=== PATIENT | female | born 1950 | race American Indian/Alaskan Native ===

== ENCOUNTER 2017-09-26 11:48 | Inpatient (IN) | payer MEDICARE ==
[2017-09-26] MEDS ORDERED: NACL 0.9% 500 ML 500 ML IV ONE (12:33)
--- NOTE | 2017-09-26 13:05 | XRay Report ---
AP CHEST: HISTORY: Sepsis No comparison. The left costophrenic angle is obscured suggesting a small left pleural effusion. Otherwise, the lungs are clear. No dense consolidation or pneumothorax. Mild cardiomegaly is suspected. IMPRESSION: Mild cardiomegaly. Small left pleural effusion.
[2017-09-26 13:36] LABS: Basophils % (Auto) 0.4 % (0.0-1.8); Hematocrit 33.5 % (30.3-42.9); Hemoglobin 10.3 gm/dl (10.1-14.3); Mean Corpuscular HGB Conc 31 % (30-34); Mean Corpuscular Volume 83 fl (79-97); Platelet Count 318 K/mm3 (140-440); Red Blood Count 4.06 M/mm3 (3.65-5.03); Red Cell Distribution Width 19.7 % (13.2-15.2); White Blood Count 13.6 K/mm3 (4.5-11.0)
[2017-09-26 13:45] LABS: INR 1.08 (0.87-1.13)
[2017-09-26 13:50] LABS: Albumin 3.5 g/dL (3.9-5); Albumin/Globulin Ratio 0.8 %; Bilirubin,Total 0.3 mg/dL (0.1-1.2); Calcium 9.5 mg/dL (8.4-10.2); Chloride 121.6 mmol/L (98-107); Potassium 4.2 mmol/L (3.6-5.0)
[2017-09-26] MEDS ORDERED: NACL 0.9% 1000 ML IV ONE (13:53)
[2017-09-26] MEDS ORDERED: TYLENOL FEEDTUBE ONE (13:53)
[2017-09-26] MEDS ORDERED: MAXIPIME/NS 2 GM/100 ML 2 GM/100 ML BAG IV ONE (13:53)
[2017-09-26] MEDS ORDERED: VANCOMYCIN VIAL IV ONE ×2 (13:56→14:38)
[2017-09-26 13:58] LABS: Mean Corpuscular Hemoglobin 26 pg (28-32)
--- NOTE | 2017-09-26 13:59 | Emergency Department Report ---
ED General Adult HPI - General Chief complaint: Dyspnea/Respdistress Stated complaint: RANDOLPH Time Seen by Provider: 09/26/17 13:42 Source: EMS (ems notes not available at time of chart dictation), RN notes reviewed Mode of arrival: Stretcher Limitations: Other (patient demented and nonverbal) - History of Present Illness Initial comments: This is a 67-year-old female who is previously known to this provider, patient is brought to the ER by local EMS for generalized weakness. Past medical history includes hypertension, high cholesterol, diabetes, stroke, dysphagia, anxiety, glaucoma. Her primary care doctor is Dr. Ruel Dillard. The ER, patient is found to be febrile and tachycardic. He shouldn't is unable to describe exacerbating or relieving factors. Patient groans in response to painful stimuli. Found to be dehydrated, febrile, hypernatremic, with pleural effusion. Patient will be admitted to the hospital for sepsis, she will be treated empirically with vancomycin and cefepime, IV fluids ordered, urinalysis pending, noncontrast CT scan of the abdomen and pelvis is pending, case was presented to the Hospital physician, Dr. Palma, who accepted the patient to the medical service for aforementioned findings. -: unknown Radiation: other (per hpi) Quality: other (per hpi) Consistency: other (per hpi) Improves with: other (per hpi) Worsens with: other (per hpi) Associated Symptoms: confusion, fever/chills, loss of appetite, malaise, shortness of breath, weakness - Related Data Allergies Allergy/AdvReac Type Severity Reaction Status Date / Time codeine Allergy Unknown Verified 09/26/17 12:32 ED Review of Systems ROS: Stated complaint: RANDOLPH Other details as noted in HPI Comment: Unobtainable due to pts medical conditions ED Past Medical Hx - Past Medical History Previous Medical History?: Yes Hx CVA: Yes Hx Diabetes: Yes Additional medical history: MDD, AFib, Glaucoma, legal blindness, PVD, Anxiety, Feed tube - Surgical History Additional Surgical History: Feed tube - Social History Smoking Status: Unknown if ever smoked Substance Use Type: None ED Physical Exam - General Limitations: Other (patient demented, poor historian, may have a component of delirium) General appearance: alert, in no apparent distress - Head Head exam: Present: atraumatic, normocephalic - Eye Eye exam: Present: normal appearance - ENT ENT exam: Present: mucous membranes dry - Neck Neck exam: Present: normal inspection, full ROM - Respiratory Respiratory exam: Present: respiratory distress, rhonchi - Cardiovascular Cardiovascular Exam: Present: normal rhythm, tachycardia, normal heart sounds. Absent: systolic murmur, diastolic murmur, rubs, gallop - GI/Abdominal GI/Abdominal exam: Present: soft, normal bowel sounds, other (feeding tube is noted in the left lower quadrant, no redness, pus or streaking). Absent: distended, tenderness, guarding, rebound, rigid, pulsatile mass - Rectal Rectal exam: Absent: normal inspection (there is a well-healing 2 cm sacral wound, with a central tunnel. No obvious redness, pus or streaking) - Extremities Exam Extremities exam: Present: other (patient has contracted bilateral lower extremities. On the lateral aspect of the left lower extremity, there is a pressure wound, 3 cm wide by 8 cm long. Has some bloody discharge but good granulation tissue, there is also surrounding necrotic black tissue. 2+ pulses noted in the bilateral upper and lower extremities.). Absent: normal inspection - Back Exam Back exam: Present: normal inspection. Absent: tenderness, CVA tenderness (R), paraspinal tenderness, vertebral tenderness - Neurological Exam Neurological exam: Present: altered, other (patient groans in response to painful stimuli) - Psychiatric Psychiatric exam: Present: other (patient groans in response to painful stimuli) - Skin Skin exam: Present: warm. Absent: intact ED Course Vital Signs 09/26/17 12:21 Temperature 101.3 F H Pulse Rate 100 H Respiratory 24 Rate Blood Pressure 105/52 O2 Sat by Pulse 96 Oximetry - Reevaluation(s) Reevaluation #1: 09/26/17 14:28 Hypernatremia is appreciated, this is most likely secondary to dehydration. Reevaluation #2: 09/26/17 15:[address] scan of the abdomen and pelvis is negative. Urinalysis is pending. Of note, [facility] indicate gram-negative rods growing in culture from patient's urinalysis. ED Medical Decision Making - Lab Data Result diagrams: 09/26/17 13:04 09/26/17 13:04 Vital Signs 09/26/17 12:21 Temperature 101.3 F H Pulse Rate 100 H Respiratory 24 Rate Blood Pressure 105/52 O2 Sat by Pulse 96 Oximetry Lab Results 09/26/17 09/26/17 09/26/17 Range/Units 13:04 13:04 13:04 WBC 13.6 H (4.5-11.0) K/mm3 RBC 4.06 (3.65-5.03) M/mm3 Hgb 10.3 (10.1-14.3) gm/dl Hct 33.5 (30.3-42.9) % MCV 83 (79-97) fl MCH 26 L (28-32) pg MCHC 31 (30-34) % RDW 19.7 H (13.2-15.2) % Plt Count 318 (140-440) K/mm3 Lymph % (Auto) 21.9 (13.4-35.0) % [place] % (Auto) 4.5 (0.0-7.3) % Eos % (Auto) 2.0 (0.0-4.3) % Baso % (Auto) 0.4 (0.0-1.8) % Lymph # 3.0 (1.2-5.4) K/mm3 [place] # 0.6 (0.0-0.8) K/mm3 Eos # 0.3 (0.0-0.4) K/mm3 Baso # 0.1 (0.0-0.1) K/mm3 Seg Neutrophils % 71.2 H (40.0-70.0) % Seg Neutrophils # 9.7 H (1.8-7.7) K/mm3 PT 14.6 (12.2-14.9) Sec. INR 1.08 (0.87-1.13) VBG pH (7.320-7.420) Sodium 163 H* (137-145) mmol/L Potassium 4.2 (3.6-5.0) mmol/L Chloride 121.6 H (98-107) mmol/L Carbon Dioxide 24 (22-30) mmol/L Anion Gap 22 mmol/L BUN 53 H (7-17) mg/dL Creatinine 1.5 H (0.7-1.2) mg/dL Estimated GFR 42 ml/min BUN/Creatinine Ratio 35 % Glucose 279 H (65-100) mg/dL Lactic Acid (0.7-2.0) mmol/L Calcium 9.5 (8.4-10.2) mg/dL Total Bilirubin 0.30 (0.1-1.2) mg/dL AST 14 (5-40) units/L ALT 22 (7-56) units/L Alkaline Phosphatase 96 (35-129) units/L Total Protein 8.0 (6.3-8.2) g/dL Albumin 3.5 L (3.9-5) g/dL Albumin/Globulin Ratio 0.8 % 09/26/17 09/26/17 Range/Units 13:04 13:04 WBC (4.5-11.0) K/mm3 RBC (3.65-5.03) M/mm3 Hgb (10.1-14.3) gm/dl Hct (30.3-42.9) % MCV (79-97) fl MCH (28-32) pg MCHC (30-34) % RDW (13.2-15.2) % Plt Count (140-440) K/mm3 Lymph % (Auto) (13.4-35.0) % [place] % (Auto) (0.0-7.3) % Eos % (Auto) (0.0-4.3) % Baso % (Auto) (0.0-1.8) % Lymph # (1.2-5.4) K/mm3 [place] # (0.0-0.8) K/mm3 Eos # (0.0-0.4) K/mm3 Baso # (0.0-0.1) K/mm3 Seg Neutrophils % (40.0-70.0) % Seg Neutrophils # (1.8-7.7) K/mm3 PT (12.2-14.9) Sec. INR (0.87-1.13) VBG pH 7.426 H (7.320-7.420) Sodium (137-145) mmol/L Potassium (3.6-5.0) mmol/L Chloride (98-107) mmol/L Carbon Dioxide (22-30) mmol/L Anion Gap mmol/L BUN (7-17) mg/dL Creatinine (0.7-1.2) mg/dL Estimated GFR ml/min BUN/Creatinine Ratio % Glucose (65-100) mg/dL Lactic Acid 2.20 H* (0.7-2.0) mmol/L Calcium (8.4-10.2) mg/dL Total Bilirubin (0.1-1.2) mg/dL AST (5-40) units/L ALT (7-56) units/L Alkaline Phosphatase (35-129) units/L Total Protein (6.3-8.2) g/dL Albumin (3.9-5) g/dL Albumin/Globulin Ratio % - EKG Data -: EKG Interpreted by Me - EKG Data 09/26/17 14:26 Sinus tachycardia, 107 bpm, left axis deviation, low voltage, poor R progression , borderline high left ventricular voltage, abnormal EKG, not morphologically consistent with ST elevation myocardial infarction - Radiology Data Radiology results: pending, report reviewed, image reviewed interpreted by me: X-ray of the chest suggest pleural effusion, however no acute disease otherwise noted. CT scan of the abdomen and pelvis: Critical care attestation.: If time is entered above; I have spent that time in minutes in the direct care of this critically ill patient, excluding procedure time. ED Disposition Clinical Impression: Sepsis, Renal insufficiency, Hypernatremia Disposition: OP ADMIT IP TO THIS HOSP Is pt being admited?: Yes Condition: Fair Referrals: PRIMARY CARE, [Primary Care Provider] - 3-5 Days
[2017-09-26] MEDS ORDERED: VANCOMYCIN PHARMACY TO DOSE IV SCH (14:00)
[2017-09-26] MEDS ORDERED: ceFAZolin 2 GM in NACL 0.9% 20 ML IV SCH (14:30)
[2017-09-26] MEDS ORDERED: ZOFRAN IV PRN (14:38)
[2017-09-26] MEDS ORDERED: DULCOLAX PR PRN (14:38)
[2017-09-26] MEDS ORDERED: TYLENOL PO PRN (14:38)
[2017-09-26] MEDS ORDERED: MILK OF MAGNESIA PO PRN (14:38)
[2017-09-26] MEDS ORDERED: PROVENTIL IH PRN (14:38)
--- NOTE | 2017-09-26 14:38 | History and Physical Report ---
History of Present Illness Date of admission: She is getting weak History of present illness: 67 YO Female Penitentiary Resident at [facility] with HTN, DM, CVA complicated by Dysphagia, Anxiety, A Fib, Legal Blindness, contracture, Glaucoma , HLD presents to ED for evaluation. Pt is lethargic, and nonverbal and unable to provide history. History taken from EMS, and ED staff. As per EMS, Pt was reported to have experienced progressive weakness and worsening confusion over the past week, EMS notified, and upon arrival patient was found to be lethargic , but able to protect her airway. Pt transported to [facility] for evaluation. Pt seen and evaluated in ED and found to have evidence of fever, and sepsis. Pt initiated on sepsis protocol. No reports to fever, chills, CP, Palpitations, NVD ,Trauma, Falls, BRBPR, Skin Rash, productive cough, sore throat, or recent ill contacts. Past History Past Medical History: atrial fib, diabetes, stroke Past Surgical History: No surgical history, Other (reviewed) Social history: single. denies: smoking, alcohol abuse, prescription drug abuse , IV drug use Family history: no significant family history (reviewed) Medications and Allergies Allergies Allergy/AdvReac Type Severity Reaction Status Date / Time codeine Allergy Unknown Verified 09/26/17 12:32 Home Medications Medication Instructions Recorded Confirmed Last Taken Type Acetaminophen [Tylenol Extra 500 mg PO BID 09/26/17 09/26/17 Unknown History Strength] Amlodipine Besylate [Norvasc] 10 mg PO DAILY 09/26/17 09/26/17 Unknown History Ascorbic Acid [Vitamin C] 250 mg PO BID 09/26/17 09/26/17 Unknown History Aspirin [Aspirin TAB] 325 mg PO QDAY 09/26/17 09/26/17 Unknown History Brimonidine Tartrate [Alphagan P] 5 ml OP BID 09/26/17 09/26/17 Unknown History Ferrous Sulfate [Iron] 325 mg PO DAILY 09/26/17 09/26/17 Unknown History HYDROcodone/APAP 5-325 [[place] 1 each PO Q12H PRN 09/26/17 09/26/17 Unknown History 5/325] Insulin Lispro [Humalog 100 0 units SQ AC 09/26/17 09/26/17 Unknown History UNITS/ML Kwikpen] Metformin HCl [Glucophage] 500 mg PO DAILY 09/26/17 09/26/17 Unknown History Multivitamin Tab W-MINERAL 1 each PO QD 09/26/17 09/26/17 Unknown History [Multiple Vitamin/Mineral (Theragran M)] [place]-3 Fatty Acids/Fish Oil [Fish 1 each PO TID 09/26/17 09/26/17 Unknown History Oil 1,000 mg Softgel] Simvastatin [Zocor TAB] 60 mg PO QHS 09/26/17 09/26/17 Unknown History cloNIDine [Catapres] 0.1 mg PO BID 09/26/17 09/26/17 Unknown History Active Meds: Active Medications Vancomycin HCl 2,000 mg/ (Sodium Chloride) 520 mls @ 250 mls/hr IV ONCE.ED ONE Stop: 09/26/17 17:04 Cefepime HCl 2 gm/ Sodium (Chloride) 20 mls @ 20 mls/10 min IV ONCE.ED ONE Stop: 09/26/17 15:09 Vancomycin HCl (Vancomycin Pharmacy To Dose) 1 each IV PKCONSULT FABIOLA PRN Reason: Protocol Review of Systems ROS unobtainable: due to mental status Exam - Constitutional Vitals: Temp Pulse Resp BP Pulse Ox 101.3 F H 100 H 24 105/52 96 09/26/17 12:21 09/26/17 12:21 09/26/17 12:21 09/26/17 12:21 09/26/17 12:21 General appearance: Present: mild distress, disheveled - EENT Eyes: Present: PERRL ENT: hearing intact, clear oral mucosa - Respiratory Respiratory: bilateral: diminished - Cardiovascular Heart Sounds: Present: S1 & S2. Absent: rub, click - Extremities Extremities: pulses symmetrical, No edema Peripheral Pulses: within normal limits - Abdominal General gastrointestinal: Present: soft, non-distended Female genitourinary: Present: normal - Integumentary Integumentary: Present: clear, dry, clammy, decreased turgor - Musculoskeletal Musculoskeletal: generalized weakness - Psychiatric Psychiatric: no intact judgment & insight, no memory intact - Neurologic Neurologic: no gait normal Results - Labs CBC & Chem 7: 09/26/17 13:04 09/26/17 13:04 Labs: Abnormal lab results 09/26/17 09/26/17 09/26/17 Range/Units 13:04 13:04 13:04 WBC 13.6 H (4.5-11.0) K/mm3 MCH 26 L (28-32) pg RDW 19.7 H (13.2-15.2) % Seg Neutrophils % 71.2 H (40.0-70.0) % Seg Neutrophils # 9.7 H (1.8-7.7) K/mm3 VBG pH (7.320-7.420) Sodium 163 H* (137-145) mmol/L Chloride 121.6 H (98-107) mmol/L BUN 53 H (7-17) mg/dL Creatinine 1.5 H (0.7-1.2) mg/dL Glucose 279 H (65-100) mg/dL Lactic Acid 2.20 H* (0.7-2.0) mmol/L Albumin 3.5 L (3.9-5) g/dL 09/26/17 Range/Units 13:04 WBC (4.5-11.0) K/mm3 MCH (28-32) pg RDW (13.2-15.2) % Seg Neutrophils % (40.0-70.0) % Seg Neutrophils # (1.8-7.7) K/mm3 VBG pH 7.426 H (7.320-7.420) Sodium (137-145) mmol/L Chloride (98-107) mmol/L BUN (7-17) mg/dL Creatinine (0.7-1.2) mg/dL Glucose (65-100) mg/dL Lactic Acid (0.7-2.0) mmol/L Albumin (3.9-5) g/dL Assessment and Plan - Patient Problems (1) Sepsis Current Visit: Yes Status: Acute Qualifiers: Sepsis type: sepsis due to unspecified organism Qualified Code(s): A41.9 - Sepsis, unspecified organism Plan to address problem: IV abx, IVF, supportive care, monitor uop q shift, serial lactic acid, blood cultures, urinalysis, (2) Volume depletion Current Visit: Yes Status: Acute Plan to address problem: IVF resuscitation therapy, monitor uop q shift, (3) ARF (acute renal failure) Current Visit: Yes Status: Acute Plan to address problem: IVF replacement, urine electrolytes, monitor serum creatnine, and in no improvement, will consider renal ultrasound. (4) Lactic acidosis Current Visit: Yes Status: Acute Plan to address problem: Treat sepsis, IVF, replacement, (5) Sacral decubitus ulcer Current Visit: Yes Status: Acute Plan to address problem: Present on admission, wound care (6) Diabetes Current Visit: Yes Status: Acute Plan to address problem: ADA diet, insulin, accu check (7) DVT prophylaxis Current Visit: Yes Status: Acute
[2017-09-26] MEDS ORDERED: MAXIPIME 2 GM in NACL 0.9% 20 ML IV ONE (15:00)
[2017-09-26] MEDS ORDERED: VANCOMYCIN 2,000 MG in NACL 0.9% 500 ML 500 ML IV ONE (15:00)
--- NOTE | 2017-09-26 15:16 | Cat Scan Report ---
CT ABDOMEN PELVIS WITHOUT CONTRAST: HISTORY: Fever, sepsis. COMPARISON: none. TECHNIQUE: Helical CT in 1.25mm intervals without IV contrast. Sagittal and coronal reconstructions. FINDINGS: Lung bases: Unremarkable. Minor atelectatic changes at the right lung base are noted. Liver: normal. Biliary system: normal. Pancreas: normal. Spleen: Normal. Kidneys/ureters/bladder: normal. Adrenal glands: normal. Aorta: Moderate diffuse calcifications but no aneurysm. Intestines: normal. Appendix: normal. Pelvic viscera: normal. Musculoskeletal: normal. IMPRESSION: No acute process is identified in the abdomen or pelvis.
[2017-09-26 15:37] LABS: Bacteria,Urine 1+ /HPF (Negative); Bilirubin,Urine NEG (Negative); Blood,Urine NEG (Negative); Ketones,Urine NEG (Negative); Leukocyte Esterase,Urine NEG (Negative); Nitrite,Urine NEG (Negative); Urobilinogen,Urine < 2.0 mg/dL (<2.0)
[2017-09-26] MEDS: ZOSYN/NS 4.5GM/100ML 4.5 GM/100 ML VIAL IV SCH ×2 (18:15→22:53)
[2017-09-27] MEDS: ZOSYN/NS 4.5GM/100ML 4.5 GM/100 ML VIAL IV SCH ×3 (06:58→23:48)
[2017-09-27] MEDS ORDERED: NARCAN 0.4 MG/1 ML IV ONE (09:43)
--- NOTE | 2017-09-27 10:07 | Progress Note ---
Assessment and Plan Assessment and plan: Patient is a 67 YO Female Half-Way Resident at [facility] with HTN, DM, CVA complicated by Dysphagia, Anxiety, A Fib, Legal Blindness, contracture, Glaucoma, HLD, ODALIS, presents to ED for evaluation with fever and generalized weakness and progressive confusion. Patient at baseline is non verbal non verbal but normally awake and alert [place] reports that she has progressively gotten weak and minimally responsive. Severe Hypernatremia * Start Free water, check serial sodium level, Nephrology consult Sepsis- POA, fever, leukocytosis, tachycardia elevated lactic acid, no identifiable source of infection. possible mild aspiration pneumonitis, Pleural effusion, possible infected pressure ulcer * Cont, Vanc, change cefepime to zosyn for broader coverage. CT abdomen unremarkable. Acute Metabolic Encephalopathy * Worse than baseline per facility. Will speak further with sister * This morning patient was lethargic non responsive- had received, xanax and tramadol per nursing at 6am. now responding to noxious stimuli. * Avoid all sedating medications Pressure ulcer, sacral right hip. * wound care consult Dehydration/Volume depletion * Continue D5w at 100cc/hr Acute Kidney Injury likely secondary to vasomotor nephropathy * nephrology consult Diabete Miletus * start on Sliding scale coverage untill feeding is established And adjust as need Severe contracture * Passive PT/OT ODALIS * CPAP qhs CVA * Prior episodes now complete immobility Complete Immobility due to frailty * Fall precautions. HTN * Continue current treatment. Hold antihypertensives including CLONIDINE Atrial fibrillation * Controlled Legally Blind. * Fall precautions * Assist. dvt/gi PROPHY No family present and no contact information. call placed to [place] to obtain The high probability of a clinically significant, sudden or life threatening deterioration of the [NEUROLOGY, RENAL, ENDOCRINE] system(s) required my full and direct attention, intervention and personal management. The aggregate critical care time was [35] minutes. This time is in addition to time spent performing reported procedures but includes the following: [X] Data Review and interpretation [X] Patient assessment and monitoring of vital signs [X] Documentation [X] Medication orders and management History Interval history: Patient seen and examined this morning prior to examination nursing called a code neck due to altered sensorium patient had received Xanax with tramadol and became less responsive. She is now responded to noxious stimuli ABG did not reveal any evidence of CO2 necrosis patient at baseline is nonverbal. Hospitalist Physical - Physical exam Narrative exam: VITAL SIGNS: Reviewed. GENERAL: The patient is chronically ill appearing with contractures lower extremity. Possible noxious stimuli. Vital signs as documented. HEAD: No signs of head trauma. EYES: Pupils are equal. Extraocular movements unable to examine, patient is legally blind and with acute encephalopathy this morning EARS: Hearing grossly intact. MOUTH: Oropharynx is normal. NECK: No adenopathy, no JVD. CHEST: Chest with diminished breath sounds bilaterally. No wheezes, rales, or rhonchi. CPAP this morning CARDIAC: Regular rate and rhythm. S1 and S2, without murmurs, gallops, or rubs. VASCULAR: No Edema. Peripheral pulses normal and equal in all extremities. ABDOMEN: Soft, without detectable tenderness. No sign of distention. No rebound or guarding, and no masses palpated. Bowel Sounds normal. MUSCULOSKELETAL: Good range of motion of all major joints. Extremities without clubbing, cyanosis or edema. NEUROLOGIC EXAM: Lethargic but arousable with noxious stimuli. Unable to perform full neurological exam. Nonverbal PSYCHIATRIC: Mood normal. SKIN: Pressure ulcer unstageable at this time awaiting reevaluation - Constitutional Vitals: Temp Pulse Resp BP Pulse Ox 98.9 F 79 22 122/72 100 09/27/17 08:09 09/27/17 08:09 09/27/17 08:09 09/27/17 08:09 09/27/17 08:09 General appearance: Present: disheveled Results - Labs CBC & Chem 7: 09/27/17 10:28 09/27/17 10:28 Labs: Laboratory Last Values WBC 13.6 K/mm3 (4.5-11.0) H 09/26/17 13:04 RBC 4.06 M/mm3 (3.65-5.03) 09/26/17 13:04 Hgb 10.3 gm/dl (10.1-14.3) 09/26/17 13:04 Hct 33.5 % (30.3-42.9) 09/26/17 13:04 MCV 83 fl (79-97) 09/26/17 13:04 MCH 26 pg (28-32) L 09/26/17 13:04 MCHC 31 % (30-34) 09/26/17 13:04 RDW 19.7 % (13.2-15.2) H 09/26/17 13:04 Plt Count 318 K/mm3 (140-440) 09/26/17 13:04 Lymph % (Auto) 21.9 % (13.4-35.0) 09/26/17 13:04 [place] % (Auto) 4.5 % (0.0-7.3) 09/26/17 13:04 Eos % (Auto) 2.0 % (0.0-4.3) 09/26/17 13:04 Baso % (Auto) 0.4 % (0.0-1.8) 09/26/17 13:04 Lymph # 3.0 K/mm3 (1.2-5.4) 09/26/17 13:04 [place] # 0.6 K/mm3 (0.0-0.8) 09/26/17 13:04 Eos # 0.3 K/mm3 (0.0-0.4) 09/26/17 13:04 Baso # 0.1 K/mm3 (0.0-0.1) 09/26/17 13:04 Seg Neutrophils % 71.2 % (40.0-70.0) H 09/26/17 13:04 Seg Neutrophils # 9.7 K/mm3 (1.8-7.7) H 09/26/17 13:04 PT 14.6 Sec. (12.2-14.9) 09/26/17 13:04 INR 1.08 (0.87-1.13) 09/26/17 13:04 VBG pH 7.426 (7.320-7.420) H 09/26/17 13:04 Sodium 163 mmol/L (137-145) H* 09/26/17 13:04 Potassium 4.2 mmol/L (3.6-5.0) 09/26/17 13:04 Chloride 121.6 mmol/L (98-107) H 09/26/17 13:04 Carbon Dioxide 24 mmol/L (22-30) 09/26/17 13:04 Anion Gap 22 mmol/L 09/26/17 13:04 BUN 53 mg/dL (7-17) H 09/26/17 13:04 Creatinine 1.5 mg/dL (0.7-1.2) H 09/26/17 13:04 Estimated GFR 42 ml/min 09/26/17 13:04 BUN/Creatinine Ratio 35 % 09/26/17 13:04 Glucose 279 mg/dL (65-100) H 09/26/17 13:04 POC Glucose 262 (70-105) H 09/26/17 23:09 Lactic Acid 2.50 mmol/L (0.7-2.0) H* 09/26/17 22:54 Calcium 9.5 mg/dL (8.4-10.2) 09/26/17 13:04 Total Bilirubin 0.30 mg/dL (0.1-1.2) 09/26/17 13:04 AST 14 units/L (5-40) 09/26/17 13:04 ALT 22 units/L (7-56) 09/26/17 13:04 Alkaline Phosphatase 96 units/L (35-129) 09/26/17 13:04 Total Creatine Kinase 133 units/L (30-135) 09/26/17 14:08 Total Protein 8.0 g/dL (6.3-8.2) 09/26/17 13:04 Albumin 3.5 g/dL (3.9-5) L 09/26/17 13:04 Albumin/Globulin Ratio 0.8 % 09/26/17 13:04 Urine Color Yellow (Yellow) 09/26/17 12:40 Urine Turbidity Clear (Clear) 09/26/17 12:40 Urine pH 5.0 (5.0-7.0) 09/26/17 12:40 Ur Specific [place] 1.021 (1.003-1.030) 09/26/17 12:40 Urine Protein 100 mg/dl mg/dL (Negative) 09/26/17 12:40 Urine Glucose (UA) 50 mg/dL (Negative) 09/26/17 12:40 Urine Ketones Neg mg/dL (Negative) 09/26/17 12:40 Urine Blood Neg (Negative) 09/26/17 12:40 Urine Nitrite Neg (Negative) 09/26/17 12:40 Urine Bilirubin Neg (Negative) 09/26/17 12:40 Urine Urobilinogen < 2.0 mg/dL (<2.0) 09/26/17 12:40 Ur Leukocyte Esterase Neg (Negative) 09/26/17 12:40 Urine WBC (Auto) 5.0 /HPF (0.0-6.0) 09/26/17 12:40 Urine RBC (Auto) 2.0 /HPF (0.0-6.0) 09/26/17 12:40 U Epithel Cells (Auto) < 1.0 /HPF (0-13.0) 09/26/17 12:40 Urine Bacteria (Auto) 1+ /HPF (Negative) 09/26/17 12:40 - Imaging and Cardiology CT scan - abdomen: image reviewed CT Scan - head: pending
[2017-09-27] MEDS ORDERED: SIMPLE SYRUP FEEDTUBE PRN ×2 (10:53)
[2017-09-27] MEDS ORDERED: SODIUM BICARBONATE FEEDTUBE PRN (10:53)
[2017-09-27] MEDS ORDERED: PANCREAZE DR 10,500 UNIT FEEDTUBE PRN (10:53)
[2017-09-27 10:55] LABS: Hematocrit 29.6 % (30.3-42.9); Hemoglobin 9.3 gm/dl (10.1-14.3); Mean Corpuscular HGB Conc 32 % (30-34); Mean Corpuscular Hemoglobin 26 pg (28-32); Mean Corpuscular Volume 84 fl (79-97); Platelet Count 267 K/mm3 (140-440); Red Blood Count 3.55 M/mm3 (3.65-5.03); Red Cell Distribution Width 19.7 % (13.2-15.2); White Blood Count 12.1 K/mm3 (4.5-11.0)
[2017-09-27 10:56] LABS: Calcium 8.9 mg/dL (8.4-10.2); Chloride 127.3 mmol/L (98-107); Potassium 3.5 mmol/L (3.6-5.0)
[2017-09-27] MEDS ORDERED: D5W 1,000 ML IV SCH ×2 (11:00→15:00)
--- NOTE | 2017-09-27 12:05 | Cat Scan Report ---
CT HEAD WITHOUT CONTRAST INDICATION: Altered mental status. COMPARISON: None similar. FINDINGS: Noncontrast head CT demonstrates normal sulci and age-appropriate, mildly enlarged ventricles with mild ex-vacuo dilatation of the right frontal horn with few ganglionic lacunar infarcts as measuring approximately 8 mm on the right, axial image 34, series 2. Moderate periventricular and white matter hypodense small vessel ischemic disease also noted. Though difficult to accurately detect in this setting, no definite acute infarct, hemorrhage, mass effect or midline shift. No abnormal extra axial fluid collections. Normal posterior fossa with preserved basilar cisterns. Approximately 3 mm right paramidline pontine lacunar infarct anteriorly, axial image 19. A 4 mm right inferior cerebellar lacunar infarct also seen on axial image 12. Preserved basilar cisterns. Left eye postsurgical changes. Bilateral cataract surgery. Asymmetric abnormal density in the right eye globe posteriorly/along the retina as on axial image 18, series 2. Small bilateral maxillary sinus mucus retention cysts. Clear remainder imaged paranasal sinuses and mastoid air cells. Left external auditory canal debris may be directly visualized. Atherosclerotic ICA and vertebral artery calcifications. Left vertebral artery dominant. Hyperostosis frontalis interna. Few missing teeth and mandibular radiopaque dental filling incidentally noted. CONCLUSION: No acute intracranial CT abnormality with age-appropriate atrophy, extensive microvascular changes, lacunar infarcts and abnormal right eye globe CT appearance, amongst others, as detailed above. Please correlate. Thank you for the opportunity to participate in this patient's care.
[2017-09-27] MEDS: NOVOLOG SUB-Q SCH ×2 (12:47→17:29)
[2017-09-27] MEDS ORDERED: D5/0.45NS 1,000 ML IV SCH (13:00)
--- NOTE | 2017-09-27 13:12 | Consultation ---
History of Present Illness - Reason for Consult Consult date: 09/27/17 hypernatremia - History of Present Illness Ms Andre is a 67 y/o lady with a PMH of DM, HTN, CVA, Afib, HLD, legal blindness who has been admitted to the [facility] with AMS. Pt was found to be septic and started on IVFs and Abx. Pt per history form the chart has been getting progressively weak with confusion over the past weak. Per the chart there has been no reported fever, chills, N/V, diarrhea, cough, sore throat. Pt was found to have ARF along with hypernatremia on labs. ROS: Unable to obtain due to pt lethargy Past History Past Medical History: atrial fib, diabetes, stroke Past Surgical History: No surgical history, Other (reviewed) Social history: single. denies: smoking, alcohol abuse, prescription drug abuse , IV drug use Family history: no significant family history (reviewed) Medications and Allergies Allergies Allergy/AdvReac Type Severity Reaction Status Date / Time codeine Allergy Unknown Verified 09/26/17 12:32 Home Medications Medication Instructions Recorded Confirmed Last Taken Type Acetaminophen [Tylenol Extra 500 mg PO BID 09/26/17 09/26/17 Unknown History Strength] Amlodipine Besylate [Norvasc] 10 mg PO DAILY 09/26/17 09/26/17 Unknown History Ascorbic Acid [Vitamin C] 250 mg PO BID 09/26/17 09/26/17 Unknown History Aspirin [Aspirin TAB] 325 mg PO QDAY 09/26/17 09/26/17 Unknown History Brimonidine Tartrate [Alphagan P] 5 ml OP BID 09/26/17 09/26/17 Unknown History Ferrous Sulfate [Iron] 325 mg PO DAILY 09/26/17 09/26/17 Unknown History HYDROcodone/APAP 5-325 [[place] 1 each PO Q12H PRN 09/26/17 09/26/17 Unknown History 5/325] Insulin Lispro [Humalog 100 0 units SQ AC 09/26/17 09/26/17 Unknown History UNITS/ML Kwikpen] Metformin HCl [Glucophage] 500 mg PO DAILY 09/26/17 09/26/17 Unknown History Multivitamin Tab W-MINERAL 1 each PO QD 09/26/17 09/26/17 Unknown History [Multiple Vitamin/Mineral (Theragran M)] [place]-3 Fatty Acids/Fish Oil [Fish 1 each PO TID 09/26/17 09/26/17 Unknown History Oil 1,000 mg Softgel] Simvastatin [Zocor TAB] 60 mg PO QHS 09/26/17 09/26/17 Unknown History cloNIDine [Catapres] 0.1 mg PO BID 09/26/17 09/26/17 Unknown History Active Meds: Active Medications Acetaminophen (Tylenol) 650 mg PO Q4H PRN PRN Reason: Pain MILD(1-3)/Fever >100.5/CARRILLO Acetaminophen (Tylenol) 500 mg PO BID FABIOLA Albuterol (Proventil) 2.5 mg IH Q4HRT PRN PRN Reason: Shortness Of Breath Lipase/Protease/Amylase (Pancreaze Dr 10,500 Unit) 1 each FEEDTUBE PRN PRN PRN Reason: For Clogged Feeding Tube Ascorbic Acid (Vitamin C) 250 mg PO BID FABIOLA Aspirin (Aspirin) 325 mg PO QDAY FABIOLA Bisacodyl (Dulcolax) 10 mg VT QDAY PRN PRN Reason: Constipation unrelieved by MOM Brimonidine Tartrate (Alphagan P 0.15%) 1 drops OU BID FABIOLA Piperacillin Sod/Tazobactam Sod (Zosyn/Ns 4.5gm/100ml) 4.5 gm in 100 mls @ 200 mls/hr IV Q8HR FABIOLA PRN Reason: Protocol Last Admin: 09/27/17 06:58 Dose: 200 mls/hr Vancomycin HCl 1,500 mg/ (Sodium Chloride) 515 mls @ 333.333 mls/hr IV Q24H FABIOLA Dextrose (D5w) 1,000 mls @ 100 mls/hr IV DIRECT FABIOLA Dextrose/Sodium Chloride (D5/0.45ns) 1,000 mls @ 100 mls/hr IV DIRECT FABIOLA Insulin Aspart (Novolog) 0 units SUB-Q ACHS FABIOLA PRN Reason: Protocol Magnesium Hydroxide (Milk Of Magnesia) 30 ml PO Q4H PRN PRN Reason: Constipation Ondansetron HCl (Zofran) 4 mg IV Q8H PRN PRN Reason: N/V unrelieved by Reglan Simple Syrup (Simple Syrup) 15 ml FEEDTUBE PRN PRN PRN Reason: Hypoglycemia Simple Syrup (Simple Syrup) 30 ml FEEDTUBE PRN PRN PRN Reason: Hypoglycemia Sodium Bicarbonate (Sodium Bicarbonate) 325 mg FEEDTUBE PRN PRN PRN Reason: For Clogged Feeding Tube Vancomycin HCl (Vancomycin Pharmacy To Dose) 1 each IV PKCONSULT FABIOLA PRN Reason: Protocol Exam - Vital Signs Vital signs: Vital Signs Pulse Ox 94 09/26/17 12:15 - Physical Exam Narrative exam: GE: Lethargic HEENT: Normocephalic Neck: No JVD CVS: RRR Chest: Coarse BS BL Abd: Soft/BS+ Ext: No cce Neuro: Lethargic Results - Lab Results 09/27/17 10:28 09/27/17 10:28 Most recent lab results Calcium 8.9 mg/dL (8.4-10.2) 09/27/17 10:28 Assessment and Plan Acute Kidney injury likely pre renal: -No BL Cr available, came in with Cr of 1.5. Now 1.4 -Continue IVFs. Will hydrate with D5W at 100 mls/hr given hypernatremia -CXR somewhat congested so keep close eye on volume status, check TTE -Renally dose all meds, avoid nephrotoxic meds -Check Urine Studies. CT abdomen mentions kidneys as normal. Hypernatremia, hypertonic: -Unknown if acute or chronic so will check BMP q6H and target drop in Na 8-10 meq/24 hours to prevent cerebral edema -Started D5W at 100 mls/hr -Check BMP q6H -Monitor closely Sepsis due to unknown cause: -On empiric ABx -Cultures ordered -Per primary Metabolic acidosis due to lactic acidosis: -Improved now, monitor, could be due to Sepsis Essential Hypertension: -BP meds on hold for now due to risk of hypotension with Sepsis Diabetes mellitus type 2 on insulin: -On ISS -Per primary Hyperlipidemia, chronic: -Can continue statin Anemia, normocytic: -Transfuse PRN per primary With this note, I want to thank Dr Stephens for allowing me to participate in the care of Ms Andre, i will continue to follow her closely with you. Thank you for the consult. Erik Ceja MD Nephrology, Hypertension, Dialysis, Transplantation Phone no: [phone]
[2017-09-27 13:38] LABS: Basophils % (Manual) 0 % (0.0-1.8); Blastocytes % (Manual) 0 %; Diff Status Complete; RBC Morphology Normal
--- NOTE | 2017-09-27 15:44 | XRay Report ---
PORTABLE CHEST INDICATION: Volume status. COMPARISON: Yesterday. FINDINGS: Portable, frontal chest radiograph, 12:18 PM, 09/27/2017 demonstrates stable cardiomediastinal silhouette. Approximately 7 mm subtle nodular density may project over the right fifth rib posterolaterally and possibly a granuloma, amongst others. Otherwise unremarkable lungs. Slightly elevated right hemidiaphragm. Aortic atherosclerotic calcifications. EKG leads. Intact bones. CONCLUSION: Vague right mid lung nodule, as described. Please correlate clinically, with more remote chest imaging if available, or further with chest CT, as appropriate. Thank you for the opportunity to participate in this patient's care.
[2017-09-27 16:42] LABS: Calcium 8.6 mg/dL (8.4-10.2); Chloride 124.7 mmol/L (98-107); Potassium 3.5 mmol/L (3.6-5.0)
[2017-09-27] MEDS: VANCOMYCIN 1,500 MG in NACL 0.9% 500 ML 500 ML IV SCH (17:30)
[2017-09-27 21:50] LABS: Calcium 8.8 mg/dL (8.4-10.2); Chloride 121.8 mmol/L (98-107); Potassium 3.3 mmol/L (3.6-5.0)
[2017-09-27] MEDS: TYLENOL PO SCH (22:49)
[2017-09-27] MEDS: VITAMIN C PO SCH (22:50)
[2017-09-27] MEDS: ALPHAGAN P 0.15% OU SCH (23:48)
[2017-09-28] MEDS: NOVOLOG SUB-Q SCH ×5 (00:12→22:54)
[2017-09-28 05:43] LABS: Hematocrit 30.3 % (30.3-42.9); Hemoglobin 9.4 gm/dl (10.1-14.3); Mean Corpuscular HGB Conc 31 % (30-34); Mean Corpuscular Volume 83 fl (79-97); Platelet Count 265 K/mm3 (140-440); Red Blood Count 3.63 M/mm3 (3.65-5.03); Red Cell Distribution Width 18.9 % (13.2-15.2); White Blood Count 9.7 K/mm3 (4.5-11.0)
[2017-09-28] MEDS: ZOSYN/NS 4.5GM/100ML 4.5 GM/100 ML VIAL IV SCH ×3 (05:50→22:51)
[2017-09-28 06:00] LABS: Mean Corpuscular Hemoglobin 26 pg (28-32); Potassium 3.4 mmol/L (3.6-5.0)
[2017-09-28] MEDS: VITAMIN C PO SCH ×2 (09:50→22:51)
[2017-09-28] MEDS: ALPHAGAN P 0.15% OU SCH ×2 (09:50→22:51)
[2017-09-28] MEDS: ASPIRIN PO SCH (09:50)
--- NOTE | 2017-09-28 09:51 | Progress Note ---
Assessment and Plan Assessment and plan: Patient is a 67 YO Female Residential Resident at [facility] with HTN, DM, CVA complicated by Dysphagia, Anxiety, A Fib, Legal Blindness, contracture, Glaucoma, HLD, ODALIS, presents to ED for evaluation with fever and generalized weakness and progressive confusion. Patient at baseline is non verbal non verbal but normally awake and alert [place] reports that she has progressively gotten weak and minimally responsive. Severe Hypernatremia * Improving, now 157 continue Free water, check serial sodium level, Nephrology input noted. Sepsis- POA, fever, leukocytosis, tachycardia elevated lactic acid, no identifiable source of infection. possible mild aspiration pneumonitis, Pleural effusion, possible infected pressure ulcer * Cont, Vanc, change cefepime to zosyn for broader coverage. CT abdomen unremarkable. * Discontinue abx in 24 hours or switch to PO if no further fever. Acute Metabolic Encephalopathy * Appears to be improving with intermittent waxing and wanning. * This morning patient was lethargic non responsive- had received, xanax and tramadol per nursing at 6am. now responding to noxious stimuli. * Avoid all sedating medications Pressure ulcer, sacral right hip. * wound care consult Dehydration/Volume depletion * Continue D5w at 100cc/hr Acute Kidney Injury likely secondary to vasomotor nephropathy * nephrology consult noted. Resolving. Diabete [place] * Start home dose meds, since tube feeds resumed continue Sliding scale coverage Severe contracture * Passive PT/OT ODALIS * CPAP qhs CVA * Prior episodes now complete immobility Complete Immobility due to frailty * Fall precautions. HTN * Continue current treatment. Hold antihypertensives including CLONIDINE Hypokalemia * Replace Atrial fibrillation * Controlled Legally Blind. * Fall precautions * Assist. dvt/gi PROPHY No family present and no contact information. call placed to [place] to obtain History Interval history: Patient seen and examined this morning in no acute distress clinically at baseline according to family toe was here yesterday. Still nonverbal but opens eyes to verbal stimulus at this time. Hospitalist Physical - Physical exam Narrative exam: VITAL SIGNS: Reviewed. GENERAL: The patient is chronically ill appearing with contractors lower extremity. Possible noxious stimuli. Vital signs as documented. HEAD: No signs of head trauma. EYES: Pupils are equal. Extraocular movements unable to examine, patient is legally blind and with acute encephalopathy this morning EARS: Hearing grossly intact. MOUTH: Oropharynx is normal. NECK: No adenopathy, no JVD. CHEST: Chest with diminished breath sounds bilaterally. No wheezes, rales, or rhonchi. CPAP this morning CARDIAC: Regular rate and rhythm. S1 and S2, without murmurs, gallops, or rubs. VASCULAR: No Edema. Peripheral pulses normal and equal in all extremities. ABDOMEN: Soft, without detectable tenderness. No sign of distention. No rebound or guarding, and no masses palpated. Bowel Sounds normal. MUSCULOSKELETAL: Good range of motion of all major joints. Extremities without clubbing, cyanosis or edema. NEUROLOGIC EXAM: Awake to verbal stimuli but nonverbal. Unable to perform full neurological exam. Nonverbal PSYCHIATRIC: Mood normal. SKIN: Pressure ulcer unstageable at this time awaiting reevaluation - Constitutional Vitals: Temp Pulse Resp BP Pulse Ox 97.7 F 78 20 118/75 100 09/28/17 08:04 09/28/17 08:04 09/28/17 08:04 09/28/17 08:04 09/28/17 09:03 General appearance: Present: disheveled Results - Labs CBC & Chem 7: 09/28/17 05:19 09/28/17 10:47 Labs: Laboratory Last Values WBC 9.7 K/mm3 (4.5-11.0) 09/28/17 05:19 RBC 3.63 M/mm3 (3.65-5.03) L 09/28/17 05:19 Hgb 9.4 gm/dl (10.1-14.3) L 09/28/17 05:19 Hct 30.3 % (30.3-42.9) 09/28/17 05:19 MCV 83 fl (79-97) 09/28/17 05:19 MCH 26 pg (28-32) L 09/28/17 05:19 MCHC 31 % (30-34) 09/28/17 05:19 RDW 18.9 % (13.2-15.2) H 09/28/17 05:19 Plt Count 265 K/mm3 (140-440) 09/28/17 05:19 Lymph % (Auto) 21.9 % (13.4-35.0) 09/26/17 13:04 Mower % (Auto) 4.5 % (0.0-7.3) 09/26/17 13:04 Eos % (Auto) 2.0 % (0.0-4.3) 09/26/17 13:04 Baso % (Auto) 0.4 % (0.0-1.8) 09/26/17 13:04 Lymph # 3.0 K/mm3 (1.2-5.4) 09/26/17 13:04 Mower # 0.6 K/mm3 (0.0-0.8) 09/26/17 13:04 Eos # 0.3 K/mm3 (0.0-0.4) 09/26/17 13:04 Baso # 0.1 K/mm3 (0.0-0.1) 09/26/17 13:04 Add Manual Diff Complete 09/27/17 10:28 Total Counted 100 09/27/17 10:28 Seg Neutrophils % 71.2 % (40.0-70.0) H 09/26/17 13:04 Seg Neuts % (Manual) 73.0 % (40.0-70.0) H 09/27/17 10:28 Band Neutrophils % 5.0 % 09/27/17 10:28 Lymphocytes % (Manual) 16.0 % (13.4-35.0) 09/27/17 10:28 Reactive Lymphs % (Man) 0 % 09/27/17 10:28 Monocytes % (Manual) 5.0 % (0.0-7.3) 09/27/17 10:28 Eosinophils % (Manual) 1.0 % (0.0-4.3) 09/27/17 10:28 Basophils % (Manual) 0 % (0.0-1.8) 09/27/17 10:28 Metamyelocytes % 0 % 09/27/17 10:28 Myelocytes % 0 % 09/27/17 10:28 Promyelocytes % 0 % 09/27/17 10:28 Blast Cells % 0 % 09/27/17 10:28 Nucleated RBC % Not Reportable 09/27/17 10:28 Seg Neutrophils # 9.7 K/mm3 (1.8-7.7) H 09/26/17 13:04 Seg Neutrophils # Man 8.8 K/mm3 (1.8-7.7) H 09/27/17 10:28 Band Neutrophils # 0.6 K/mm3 09/27/17 10:28 Lymphocytes # (Manual) 1.9 K/mm3 (1.2-5.4) 09/27/17 10:28 Abs React Lymphs (Man) 0.0 K/mm3 09/27/17 10:28 Monocytes # (Manual) 0.6 K/mm3 (0.0-0.8) 09/27/17 10:28 Eosinophils # (Manual) 0.1 K/mm3 (0.0-0.4) 09/27/17 10:28 Basophils # (Manual) 0.0 K/mm3 (0.0-0.1) 09/27/17 10:28 Metamyelocytes # 0.0 K/mm3 09/27/17 10:28 Myelocytes # 0.0 K/mm3 09/27/17 10:28 Promyelocytes # 0.0 K/mm3 09/27/17 10:28 Blast Cells # 0.0 K/mm3 09/27/17 10:28 WBC Morphology Not Reportable 09/27/17 10:28 Hypersegmented Neuts Not Reportable 09/27/17 10:28 Hyposegmented Neuts Not Reportable 09/27/17 10:28 Hypogranular Neuts Not Reportable 09/27/17 10:28 Smudge Cells Not Reportable 09/27/17 10:28 Toxic Granulation Not Reportable 09/27/17 10:28 Toxic Vacuolation Not Reportable 09/27/17 10:28 Dohle Bodies Not Reportable 09/27/17 10:28 Pelger-Huet Anomaly Not Reportable 09/27/17 10:28 Stephany Rods Not Reportable 09/27/17 10:28 Platelet Estimate Not Reportable 09/27/17 10:28 Clumped Platelets Not Reportable 09/27/17 10:28 Plt Clumps, EDTA Not Reportable 09/27/17 10:28 Large Platelets Not Reportable 09/27/17 10:28 Giant Platelets Not Reportable 09/27/17 10:28 Platelet Satelliting Not Reportable 09/27/17 10:28 Plt Morphology Comment Not Reportable 09/27/17 10:28 RBC Morphology Normal 09/27/17 10:28 Dimorphic RBCs Not Reportable 09/27/17 10:28 Polychromasia Not Reportable 09/27/17 10:28 Hypochromasia Not Reportable 09/27/17 10:28 Poikilocytosis Not Reportable 09/27/17 10:28 Anisocytosis Not Reportable 09/27/17 10:28 Microcytosis Not Reportable 09/27/17 10:28 Macrocytosis Not Reportable 09/27/17 10:28 Spherocytes Not Reportable 09/27/17 10:28 Pappenheimer Bodies Not Reportable 09/27/17 10:28 Sickle Cells Not Reportable 09/27/17 10:28 Target Cells Not Reportable 09/27/17 10:28 Tear Drop Cells Not Reportable 09/27/17 10:28 Ovalocytes Not Reportable 09/27/17 10:28 Helmet Cells Not Reportable 09/27/17 10:28 [place] Bodies Not Reportable 09/27/17 10:28 [place] Rings Not Reportable 09/27/17 10:28 [place] Cells Not Reportable 09/27/17 10:28 Bite Cells Not Reportable 09/27/17 10:28 Crenated Cell Not Reportable 09/27/17 10:28 Elliptocytes Not Reportable 09/27/17 10:28 Acanthocytes (Spur) Not Reportable 09/27/17 10:28 Rouleaux Not Reportable 09/27/17 10:28 Hemoglobin C Crystals Not Reportable 09/27/17 10:28 Schistocytes Not Reportable 09/27/17 10:28 Malaria parasites Not Reportable 09/27/17 10:28 [place] Bodies Not Reportable 09/27/17 10:28 Hem Pathologist Commnt No 09/27/17 10:28 PT 14.6 Sec. (12.2-14.9) 09/26/17 13:04 INR 1.08 (0.87-1.13) 09/26/17 13:04 VBG pH 7.426 (7.320-7.420) H 09/26/17 13:04 Sodium 160 mmol/L (137-145) H 09/28/17 05:19 Potassium 3.4 mmol/L (3.6-5.0) L 09/28/17 05:19 Chloride 123.0 mmol/L (98-107) H 09/28/17 05:19 Carbon Dioxide 23 mmol/L (22-30) 09/28/17 05:19 Anion Gap 17 mmol/L 09/28/17 05:19 BUN 33 mg/dL (7-17) H 09/28/17 05:19 Creatinine 1.2 mg/dL (0.7-1.2) 09/28/17 05:19 Estimated GFR 54 ml/min 09/28/17 05:19 BUN/Creatinine Ratio 28 % 09/28/17 05:19 Glucose 148 mg/dL (65-100) H 09/28/17 05:19 POC Glucose 181 (70-105) H 09/28/17 08:10 Lactic Acid 0.90 mmol/L (0.7-2.0) 09/28/17 05:19 Calcium 9.0 mg/dL (8.4-10.2) 09/28/17 05:19 Total Bilirubin 0.30 mg/dL (0.1-1.2) 09/26/17 13:04 AST 14 units/L (5-40) 09/26/17 13:04 ALT 22 units/L (7-56) 09/26/17 13:04 Alkaline Phosphatase 96 units/L (35-129) 09/26/17 13:04 Total Creatine Kinase 133 units/L (30-135) 09/26/17 14:08 NT-Pro-B Natriuret Pep 137.9 pg/mL (0-900) 09/27/17 10:28 Total Protein 8.0 g/dL (6.3-8.2) 09/26/17 13:04 Albumin 3.5 g/dL (3.9-5) L 09/26/17 13:04 Albumin/Globulin Ratio 0.8 % 09/26/17 13:04 Urine Color Yellow (Yellow) 09/26/17 12:40 Urine Turbidity Clear (Clear) 09/26/17 12:40 Urine pH 5.0 (5.0-7.0) 09/26/17 12:40 Ur Specific [place] 1.021 (1.003-1.030) 09/26/17 12:40 Urine Protein 100 mg/dl mg/dL (Negative) 09/26/17 12:40 Urine Glucose (UA) 50 mg/dL (Negative) 09/26/17 12:40 Urine Ketones Neg mg/dL (Negative) 09/26/17 12:40 Urine Blood Neg (Negative) 09/26/17 12:40 Urine Nitrite Neg (Negative) 09/26/17 12:40 Urine Bilirubin Neg (Negative) 09/26/17 12:40 Urine Urobilinogen < 2.0 mg/dL (<2.0) 09/26/17 12:40 Ur Leukocyte Esterase Neg (Negative) 09/26/17 12:40 Urine WBC (Auto) 5.0 /HPF (0.0-6.0) 09/26/17 12:40 Urine RBC (Auto) 2.0 /HPF (0.0-6.0) 09/26/17 12:40 U Epithel Cells (Auto) < 1.0 /HPF (0-13.0) 09/26/17 12:40 Urine Bacteria (Auto) 1+ /HPF (Negative) 09/26/17 12:40 Urine Creatinine 49.2 mg/dL (0.1-20.0) H 09/27/17 Unknown Urine Sodium 99 mmol/L 09/27/17 Unknown Urine Urea Nitrogen 832 09/27/17 Unknown
[2017-09-28] MEDS ORDERED: GLUCOPHAGE PO SCH (10:30)
--- NOTE | 2017-09-28 10:30 | Progress Note ---
Assessment and Plan Acute Kidney injury likely pre renal: -No BL Cr available, came in with Cr of 1.5. Now 1.4 -Continue D5W at 100 mls/hr. BUN/Cr trending down. -CXR was somewhat congested so keep close eye on volume status, TTE ordered. -Renally dose all meds, avoid nephrotoxic meds -Check Urine Studies. CT abdomen mentions kidneys as normal. Hypernatremia, hypertonic: -Unknown if acute or chronic so will check BMP q6H and target drop in Na 8-10 meq/24 hours to prevent cerebral edema -Continue D5W at 100 mls/hr. Na trending down. -Check BMP q6H -Monitor closely Sepsis due to unknown cause: -On empiric ABx -Cultures ordered -Per primary Metabolic acidosis due to lactic acidosis: -Improved now, monitor, could be due to Sepsis Essential Hypertension: -BP meds on hold for now due to risk of hypotension with Sepsis Diabetes mellitus type 2 on insulin: -On ISS -Hold metformin for now due to HOA. -Per primary Hyperlipidemia, chronic: -Can continue statin Anemia, normocytic: -Transfuse PRN per primary Erik Ceja MD Nephrology, Hypertension, Dialysis, Transplantation Phone no: [phone] Subjective Date of service: 09/28/17 Interval history: Na trending down. Echo today. Objective - Exam Narrative Exam: GE: Lethargic HEENT: Normocephalic Neck: No JVD CVS: RRR Chest: Coarse BS BL Abd: Soft/BS+ Ext: No cce Neuro: Lethargic - Vital Signs Vital signs: Vital Signs - 12hr 09/27/17 09/28/17 09/28/17 23:20 04:14 08:04 Temperature 97.8 F 97.7 F Pulse Rate 80 78 Respiratory 21 18 20 Rate Blood Pressure 146/93 118/75 O2 Sat by Pulse 98 100 Oximetry 09/28/17 09:03 Temperature Pulse Rate Respiratory Rate Blood Pressure O2 Sat by Pulse 100 Oximetry - Lab 09/28/17 05:19 09/28/17 10:47 Most recent lab results Calcium 9.0 mg/dL (8.4-10.2) 09/28/17 05:19 Urine Creatinine 49.2 mg/dL (0.1-20.0) H 09/27/17 Unknown Urine Sodium 99 mmol/L 09/27/17 Unknown
[2017-09-28] MEDS: KCL 10MEQ/100ML 10 MEQ/100 ML BAG IV SCH ×4 (11:13→16:48)
[2017-09-28 11:27] LABS: Chloride 118.9 mmol/L (98-107); Potassium 3.6 mmol/L (3.6-5.0)
[2017-09-28] MEDS: TYLENOL PO SCH ×2 (11:43→22:51)
[2017-09-28] MEDS: VANCOMYCIN 1,500 MG in NACL 0.9% 500 ML 500 ML IV SCH (17:04)
[2017-09-28 18:18] LABS: Anion Gap 20 mmol/L; BUN/Creatinine Ratio 26; Blood Urea Nitrogen 29 mg/dL (7-17); Calcium 8.9 mg/dL (8.4-10.2); Carbon Dioxide 22 mmol/L (22-30); Glucose 167 mg/dL (65-100); Potassium 3.6 mmol/L (3.6-5.0); Sodium 155 mmol/L (137-145)
[2017-09-28 23:08] LABS: Anion Gap 19 mmol/L; BUN/Creatinine Ratio 24; Blood Urea Nitrogen 26 mg/dL (7-17); Carbon Dioxide 22 mmol/L (22-30); Chloride 116.2 mmol/L (98-107); Glucose 172 mg/dL (65-100); Potassium 3.4 mmol/L (3.6-5.0); Sodium 154 mmol/L (137-145)
[2017-09-29] MEDS: NOVOLOG SUB-Q SCH ×4 (01:05→17:53)
[2017-09-29] MEDS: D5W 1,000 ML IV SCH ×2 (06:07→17:53)
[2017-09-29] MEDS: ZOSYN/NS 4.5GM/100ML 4.5 GM/100 ML VIAL IV SCH ×3 (06:07→22:38)
[2017-09-29 06:43] LABS: Hematocrit 30.4 % (30.3-42.9); Hemoglobin 9.5 gm/dl (10.1-14.3); Mean Corpuscular HGB Conc 32 % (30-34); Mean Corpuscular Hemoglobin 26 pg (28-32); Mean Corpuscular Volume 83 fl (79-97); Platelet Count 272 K/mm3 (140-440); Red Blood Count 3.68 M/mm3 (3.65-5.03); Red Cell Distribution Width 19.7 % (13.2-15.2)
[2017-09-29 07:04] LABS: Anion Gap 20 mmol/L; BUN/Creatinine Ratio 24; Blood Urea Nitrogen 24 mg/dL (7-17); Calcium 8.7 mg/dL (8.4-10.2); Carbon Dioxide 22 mmol/L (22-30); Glucose 250 mg/dL (65-100); Potassium 3.5 mmol/L (3.6-5.0); Sodium 152 mmol/L (137-145)
[2017-09-29] MEDS: ASPIRIN PO SCH (10:04)
[2017-09-29] MEDS: ALPHAGAN P 0.15% OU SCH ×2 (10:05→22:39)
[2017-09-29] MEDS: TYLENOL PO SCH ×2 (10:05→22:39)
[2017-09-29] MEDS: VITAMIN C PO SCH ×2 (10:06→22:43)
--- NOTE | 2017-09-29 13:33 | Progress Note ---
Assessment and Plan Acute Kidney injury likely pre renal: -No BL Cr available, came in with Cr of 1.5. Now 1.4 -Continue D5W at 100 mls/hr. BUN/Cr improved. -CXR was somewhat congested so keep close eye on volume status, TTE ordered. Shows LVEF 55% with diastolic dysfunction. -Renally dose all meds, avoid nephrotoxic meds -Check Urine Studies. CT abdomen mentions kidneys as normal. Hypernatremia, hypertonic: -Unknown if acute or chronic so will check BMP q6H and target drop in Na 8-10 meq/24 hours to prevent cerebral edema -Continue D5W at 100 mls/hr. Na improving. -Check BMP q6H -Monitor closely Hypokalemia: -Replace PRN Sepsis due to unknown cause: -On empiric ABx -Cultures ordered -Per primary Metabolic acidosis due to lactic acidosis: -Improved now, monitor, could be due to Sepsis Essential Hypertension: -BP meds on hold for now due to risk of hypotension with Sepsis Diabetes mellitus type 2 on insulin: -On ISS -Hold metformin for now due to HOA. -Per primary Hyperlipidemia, chronic: -Can continue statin Anemia, normocytic: -Transfuse PRN per primary Erik Ceja MD Nephrology, Hypertension, Dialysis, Transplantation Phone no: [phone] Subjective Date of service: 09/29/17 Interval history: Na trending down. Slightly more awake but still lethargic. Objective - Exam Narrative Exam: GE: Lethargic HEENT: Normocephalic Neck: No JVD CVS: RRR Chest: Coarse BS BL Abd: Soft/BS+ Ext: No cce Neuro: Lethargic - Vital Signs Vital signs: Vital Signs - 12hr 09/29/17 09/29/17 09/29/17 04:23 07:35 08:01 Temperature 98.3 F 98.7 F Pulse Rate 79 Respiratory 18 19 Rate Blood Pressure 152/85 119/78 O2 Sat by Pulse 100 100 Oximetry - Lab 09/29/17 05:33 09/29/17 05:33 Most recent lab results Calcium 8.7 mg/dL (8.4-10.2) 09/29/17 05:33 Urine Creatinine 49.2 mg/dL (0.1-20.0) H 09/27/17 Unknown Urine Sodium 99 mmol/L 09/27/17 Unknown
[2017-09-29 14:05] LABS: Anion Gap 18 mmol/L; BUN/Creatinine Ratio 21; Blood Urea Nitrogen 23 mg/dL (7-17); Calcium 8.6 mg/dL (8.4-10.2); Carbon Dioxide 22 mmol/L (22-30); Chloride 113.3 mmol/L (98-107); Glucose 223 mg/dL (65-100); Potassium 3.1 mmol/L (3.6-5.0); Sodium 150 mmol/L (137-145)
[2017-09-29 17:34] LABS: Anion Gap 19 mmol/L; BUN/Creatinine Ratio 21; Blood Urea Nitrogen 23 mg/dL (7-17); Calcium 8.6 mg/dL (8.4-10.2); Carbon Dioxide 21 mmol/L (22-30); Glucose 166 mg/dL (65-100); Potassium 3.4 mmol/L (3.6-5.0); Sodium 155 mmol/L (137-145)
[2017-09-29] MEDS: VANCOMYCIN 1,500 MG in NACL 0.9% 500 ML 500 ML IV SCH (17:53)
[2017-09-29 23:51] LABS: Anion Gap 26 mmol/L; BUN/Creatinine Ratio 19; Blood Urea Nitrogen 17 mg/dL (7-17); Calcium 6.5 mg/dL (8.4-10.2); Carbon Dioxide 18 mmol/L (22-30); Chloride 101.5 mmol/L (98-107)
[2017-09-30 00:04] LABS: Glucose 599 mg/dL (65-100)
[2017-09-30 00:05] LABS: Sodium 143 mmol/L (137-145)
[2017-09-30 00:06] LABS: Potassium 2.4 mmol/L (3.6-5.0)
[2017-09-30] MEDS: NOVOLOG SUB-Q SCH ×4 (00:44→18:55)
[2017-09-30] MEDS ORDERED: POTASSIUM CHLORIDE FEEDTUBE ONE ×2 (00:57→09:51)
[2017-09-30] MEDS: KCL 10MEQ/100ML 10 MEQ/100 ML BAG IV SCH ×8 (01:30→17:35)
[2017-09-30 06:26] LABS: Anion Gap 29 mmol/L; BUN/Creatinine Ratio 20; Blood Urea Nitrogen 18 mg/dL (7-17); Calcium 6.9 mg/dL (8.4-10.2); Carbon Dioxide 19 mmol/L (22-30); Chloride 101.6 mmol/L (98-107); Glucose 456 mg/dL (65-100); Sodium 147 mmol/L (137-145)
[2017-09-30] MEDS: ZOSYN/NS 4.5GM/100ML 4.5 GM/100 ML VIAL IV SCH ×3 (06:39→22:42)
[2017-09-30 06:47] LABS: Potassium 2.7 mmol/L (3.6-5.0)
--- NOTE | 2017-09-30 09:47 | Progress Note ---
Assessment and Plan Assessment and Plan Assessment and plan: Patient is a 67 YO Female Senior Living Resident at [facility] with HTN, DM, CVA complicated by Dysphagia, Anxiety, A Fib, Legal Blindness, contracture, Glaucoma, HLD, ODALIS, presents to ED for evaluation with fever and generalized weakness and progressive confusion. Patient at baseline is non verbal non verbal but normally awake and alert NH reports that she has progressively gotten weak and minimally responsive. Severe Hypernatremia * Improving, now 152 continue Free water, check serial sodium level, Nephrology input noted. Sepsis- POA, fever, leukocytosis, tachycardia elevated lactic acid, no identifiable source of infection. possible mild aspiration pneumonitis, Pleural effusion, possible infected pressure ulcer * Cont, Vanc, change cefepime to zosyn for broader coverage. CT abdomen unremarkable. * Discontinue abx in 24 hours or switch to PO if no further fever. Acute Metabolic Encephalopathy * Appears to be improving with intermittent waxing and wanning. * This morning patient was lethargic non responsive- had received, xanax and tramadol per nursing at 6am. now responding to noxious stimuli. * Avoid all sedating medications Pressure ulcer, sacral right hip. * wound care consult Dehydration/Volume depletion * Continue D5w at 100cc/hr Acute Kidney Injury likely secondary to vasomotor nephropathy * nephrology consult noted. Resolving. Diabete Miletus * Start home dose meds, since tube feeds resumed continue Sliding scale coverage Severe contracture * Passive PT/OT ODALIS * CPAP qhs CVA * Prior episodes now complete immobility Complete Immobility due to frailty * Fall precautions. HTN * Continue current treatment. Hold antihypertensives including CLONIDINE Hypokalemia * Replace Atrial fibrillation * Controlled Legally Blind. * Fall precautions * Assist. dvt/gi PROPHY Code status discussed with sister at bedside--she wants full code for now Subjective Date of service: 09/29/17 Principal diagnosis: Hypernatremia Interval history: Late entry Still SOB Discussed with sister about code status-She wants full code. Objective - Constitutional Vitals: Vital Signs - 12hr 09/29/17 09/29/17 09/29/17 22:00 22:39 23:39 Temperature Pulse Rate 79 Respiratory 20 21 Rate Blood Pressure O2 Sat by Pulse Oximetry 09/30/17 09/30/17 09/30/17 03:00 05:58 07:54 Temperature 97.6 F 98.3 F Pulse Rate 83 88 Respiratory 21 20 18 Rate Blood Pressure 157/94 149/90 O2 Sat by Pulse 99 100 100 Oximetry 09/30/17 08:44 Temperature Pulse Rate Respiratory Rate Blood Pressure O2 Sat by Pulse 97 Oximetry General appearance: Present: mild distress, well-nourished - EENT Eyes: PERRL, EOM intact ENT: hearing intact, clear oral mucosa Ears: bilateral: normal - Neck Neck: supple, normal ROM - Respiratory Respiratory effort: normal Respiratory: bilateral: CTA - Breasts Breasts: deferred, normal - Cardiovascular Heart rate: 80 Rhythm: regular Heart Sounds: Present: S1 & S2. Absent: gallop, rub Extremities: no ischemia, pulses intact, No edema, normal color, Full ROM - Gastrointestinal General gastrointestinal: Present: soft, non-tender, non-distended, normal bowel sounds, other (PEG in place) - Genitourinary Female genitourinary: normal - Integumentary Integumentary: clear, warm, dry - Musculoskeletal Musculoskeletal: 1, strength equal bilaterally - Neurologic Neurologic: moves all extremities - Psychiatric Psychiatric: memory intact, appropriate mood/affect, intact judgment & insight - Labs CBC & Chem 7: 09/29/17 05:33 09/30/17 04:28 Labs: Abnormal lab results 09/29/17 09/29/17 09/29/17 Range/Units 11:47 13:35 16:32 Sodium 150 H (137-145) mmol/L Potassium 3.1 L (3.6-5.0) mmol/L Chloride 113.3 H (98-107) mmol/L Carbon Dioxide (22-30) mmol/L BUN 23 H (7-17) mg/dL Glucose 223 H (65-100) mg/dL POC Glucose 228 H 182 H (70-105) Calcium (8.4-10.2) mg/dL 09/29/17 09/29/17 09/29/17 Range/Units 17:01 22:25 23:04 Sodium 155 H (137-145) mmol/L Potassium 3.4 L 2.4 L* D (3.6-5.0) mmol/L Chloride 118.0 H (98-107) mmol/L Carbon Dioxide 21 L 18 L (22-30) mmol/L BUN 23 H (7-17) mg/dL Glucose 166 H 599 H* (65-100) mg/dL POC Glucose 268 H (70-105) Calcium 6.5 L D (8.4-10.2) mg/dL 09/30/17 09/30/17 09/30/17 Range/Units 00:21 04:28 07:26 Sodium 147 H (137-145) mmol/L Potassium 2.7 L* (3.6-5.0) mmol/L Chloride (98-107) mmol/L Carbon Dioxide 19 L (22-30) mmol/L BUN 18 H (7-17) mg/dL Glucose 456 H (65-100) mg/dL POC Glucose 243 H 192 H (70-105) Calcium 6.9 L (8.4-10.2) mg/dL BMP 09/29/17 09/29/17 09/29/17 13:35 17:01 23:04 Sodium 150 H 155 H 143 D Potassium 3.1 L 3.4 L 2.4 L* D Chloride 113.3 H 118.0 H 101.5 Carbon Dioxide 22 21 L 18 L BUN 23 H 23 H 17 Creatinine 1.1 1.1 0.9 Glucose 223 H 166 H 599 H* Calcium 8.6 8.6 6.5 L D 09/30/17 04:28 Sodium 147 H Potassium 2.7 L* Chloride 101.6 Carbon Dioxide 19 L BUN 18 H Creatinine 0.9 Glucose 456 H Calcium 6.9 L
--- NOTE | 2017-09-30 09:50 | Progress Note ---
Assessment and Plan Assessment and Plan Assessment and plan: Patient is a 67 YO Female Alf Resident at [facility] with HTN, DM, CVA complicated by Dysphagia, Anxiety, A Fib, Legal Blindness, contracture, Glaucoma, HLD, ODALIS, presents to ED for evaluation with fever and generalized weakness and progressive confusion. Patient at baseline is non verbal non verbal but normally awake and alert NH reports that she has progressively gotten weak and minimally responsive. Severe Hypernatremia * Improving, now 147 from 152 continue Free water, check serial sodium level, Nephrology input noted. * Hypokalemia K 2.7 today.Supplemented Sepsis- POA, fever, leukocytosis, tachycardia elevated lactic acid, no identifiable source of infection. possible mild aspiration pneumonitis, Pleural effusion, possible infected pressure ulcer * Cont, Vanc, change cefepime to zosyn for broader coverage. CT abdomen unremarkable. * Discontinue abx in 24 hours or switch to PO if no further fever. Acute Metabolic Encephalopathy * Appears to be improving with intermittent waxing and wanning. * This morning patient was lethargic non responsive- had received, xanax and tramadol per nursing at 6am. now responding to noxious stimuli. * Avoid all sedating medications Pressure ulcer, sacral right hip. * wound care consult Dehydration/Volume depletion * Continue D5w at 100cc/hr Acute Kidney Injury likely secondary to vasomotor nephropathy * nephrology consult noted. Resolving. Diabete Miletus * Start home dose meds, since tube feeds resumed continue Sliding scale coverage Severe contracture * Passive PT/OT ODALIS * CPAP qhs CVA * Prior episodes now complete immobility Complete Immobility due to frailty * Fall precautions. HTN * Continue current treatment. Hold antihypertensives including CLONIDINE Atrial fibrillation * Controlled Legally Blind. * Fall precautions * Assist. dvt/gi PROPHY Code status discussed with sister at bedside--she wants full code for now Probable discharge tomorrow if Na and K normalize Subjective Date of service: 09/30/17 Principal diagnosis: Hypernatremia Interval history: Still SOB Discussed with sister about code status-She wants full code. Objective - Constitutional Vitals: Vital Signs - 12hr 09/29/17 09/29/17 09/29/17 22:00 22:39 23:39 Temperature Pulse Rate 79 Respiratory 20 21 Rate Blood Pressure O2 Sat by Pulse Oximetry 09/30/17 09/30/17 09/30/17 03:00 05:58 07:54 Temperature 97.6 F 98.3 F Pulse Rate 83 88 Respiratory 21 20 18 Rate Blood Pressure 157/94 149/90 O2 Sat by Pulse 99 100 100 Oximetry 09/30/17 08:44 Temperature Pulse Rate Respiratory Rate Blood Pressure O2 Sat by Pulse 97 Oximetry General appearance: Present: no acute distress, mild distress, well-nourished - EENT Eyes: PERRL, EOM intact ENT: hearing intact, clear oral mucosa Ears: bilateral: normal - Neck Neck: supple, normal ROM - Respiratory Respiratory effort: normal Respiratory: bilateral: CTA - Breasts Breasts: normal - Cardiovascular Rhythm: regular Heart Sounds: Present: S1 & S2. Absent: gallop, rub Extremities: pulses intact, No edema, normal color, Full ROM - Gastrointestinal General gastrointestinal: Present: soft, non-tender, non-distended, normal bowel sounds - Genitourinary Female genitourinary: normal - Integumentary Integumentary: clear, warm, dry - Musculoskeletal Musculoskeletal: 1, strength equal bilaterally - Neurologic Neurologic: moves all extremities - Psychiatric Psychiatric: memory intact, appropriate mood/affect, intact judgment & insight - Labs CBC & Chem 7: 09/29/17 05:33 09/30/17 04:28 Labs: Abnormal lab results 09/29/17 09/29/17 09/29/17 Range/Units 11:47 13:35 16:32 Sodium 150 H (137-145) mmol/L Potassium 3.1 L (3.6-5.0) mmol/L Chloride 113.3 H (98-107) mmol/L Carbon Dioxide (22-30) mmol/L BUN 23 H (7-17) mg/dL Glucose 223 H (65-100) mg/dL POC Glucose 228 H 182 H (70-105) Calcium (8.4-10.2) mg/dL 09/29/17 09/29/17 09/29/17 Range/Units 17:01 22:25 23:04 Sodium 155 H (137-145) mmol/L Potassium 3.4 L 2.4 L* D (3.6-5.0) mmol/L Chloride 118.0 H (98-107) mmol/L Carbon Dioxide 21 L 18 L (22-30) mmol/L BUN 23 H (7-17) mg/dL Glucose 166 H 599 H* (65-100) mg/dL POC Glucose 268 H (70-105) Calcium 6.5 L D (8.4-10.2) mg/dL 09/30/17 09/30/17 09/30/17 Range/Units 00:21 04:28 07:26 Sodium 147 H (137-145) mmol/L Potassium 2.7 L* (3.6-5.0) mmol/L Chloride (98-107) mmol/L Carbon Dioxide 19 L (22-30) mmol/L BUN 18 H (7-17) mg/dL Glucose 456 H (65-100) mg/dL POC Glucose 243 H 192 H (70-105) Calcium 6.9 L (8.4-10.2) mg/dL
[2017-09-30] MEDS: D5W 1,000 ML IV SCH (10:45)
[2017-09-30] MEDS: VITAMIN C PO SCH ×2 (10:45→22:42)
[2017-09-30] MEDS: TYLENOL PO SCH ×2 (10:46→22:41)
[2017-09-30] MEDS: ASPIRIN PO SCH (10:46)
[2017-09-30] MEDS: ALPHAGAN P 0.15% OU SCH ×2 (10:47→22:42)
--- NOTE | 2017-09-30 15:24 | Progress Note ---
Assessment and Plan Acute Kidney injury likely pre renal: -No BL Cr available, came in with Cr of 1.5. Now 1.4 -Continue D5W at 100 mls/hr. BUN/Cr improved. -CXR was somewhat congested so keep close eye on volume status, TTE ordered. Shows LVEF 55% with diastolic dysfunction. -Renally dose all meds, avoid nephrotoxic meds -CT abdomen mentions kidneys as normal. Hypernatremia, hypertonic: -Unknown if acute or chronic so will check BMP q6H and target drop in Na 8-10 meq/24 hours to prevent cerebral edema -Continue D5W at 100 mls/hr. Na improving. -Check BMP q6H -Monitor closely Hypokalemia: -Replace PRN Sepsis due to unknown cause: -On empiric ABx -Cultures ordered -Per primary Hypocalcemia: -Will replace -Check 25 OH Vit D Essential Hypertension: -BP meds on hold for now due to risk of hypotension with Sepsis Diabetes mellitus type 2 on insulin: -On ISS -Hold metformin for now due to HOA. -Per primary Hyperlipidemia, chronic: -Can continue statin Anemia, normocytic: -Transfuse PRN per primary Erik Ceja MD Nephrology, Hypertension, Dialysis, Transplantation Phone no: [phone] Subjective Date of service: 09/30/17 Principal diagnosis: Hypernatremia Interval history: Na trending down. Lethargic. Objective - Exam Narrative Exam: GE: Lethargic HEENT: Normocephalic Neck: No JVD CVS: RRR Chest: Coarse BS BL Abd: Soft/BS+ Ext: No cce Neuro: Lethargic - Vital Signs Vital signs: Vital Signs - 12hr 09/30/17 09/30/17 09/30/17 05:58 07:54 08:44 Temperature 97.6 F 98.3 F Pulse Rate 83 88 Respiratory 20 18 Rate Blood Pressure 157/94 149/90 O2 Sat by Pulse 100 100 97 Oximetry - Lab 09/29/17 05:33 09/30/17 04:28 Most recent lab results Calcium 6.9 mg/dL (8.4-10.2) L 09/30/17 04:28 Phosphorus 3.30 mg/dL (2.5-4.5) 09/29/17 13:35 Magnesium 2.30 mg/dL (1.7-2.3) 09/29/17 13:35 Urine Creatinine 49.2 mg/dL (0.1-20.0) H 09/27/17 Unknown Urine Sodium 99 mmol/L 09/27/17 Unknown
[2017-09-30] MEDS ORDERED: CALCIUM GLUCONATE 1,000 MG in NACL 0.9% 100 ML IV ONE (16:00)
[2017-09-30] MEDS: VANCOMYCIN 1,500 MG in NACL 0.9% 500 ML 500 ML IV SCH (18:54)
[2017-10-01] MEDS: NOVOLOG SUB-Q SCH ×4 (00:27→19:06)
[2017-10-01 06:08] LABS: Basophils % (Auto) 0.4 % (0.0-1.8); Eosinophils % (Auto) 3.1 % (0.0-4.3); Hematocrit 26.9 % (30.3-42.9); Hemoglobin 8.8 gm/dl (10.1-14.3); Mean Corpuscular HGB Conc 33 % (30-34); Mean Corpuscular Hemoglobin 27 pg (28-32); Mean Corpuscular Volume 82 fl (79-97); Platelet Count 232 K/mm3 (140-440); Red Blood Count 3.28 M/mm3 (3.65-5.03); Red Cell Distribution Width 19.1 % (13.2-15.2)
[2017-10-01] MEDS: ZOSYN/NS 4.5GM/100ML 4.5 GM/100 ML VIAL IV SCH ×3 (06:09→22:39)
[2017-10-01] MEDS: TYLENOL PO SCH ×2 (09:56→22:38)
[2017-10-01] MEDS: VITAMIN C PO SCH ×2 (09:57→22:37)
[2017-10-01] MEDS: ASPIRIN PO SCH (09:57)
[2017-10-01] MEDS: D5W 1,000 ML IV SCH (09:57)
[2017-10-01] MEDS: ALPHAGAN P 0.15% OU SCH ×2 (09:57→22:38)
[2017-10-01] MEDS: KCL 40 MEQ in D5W 1,000 ML IV SCH (12:20)
--- NOTE | 2017-10-01 15:10 | Progress Note ---
Assessment and Plan - Patient Problems (1) ARF (acute renal failure) Current Visit: Yes Status: Acute Plan to address problem: Renal function reviewed. Serum creatinine 0.9 today Hypokalemia- On 40 meq of IV KCL in D5W@ 100 ml/hr No CMP or BMP levels noted for today Ordered labs for the a.m Renally dose medications Obtain daily weights Monitor I/O/s Continue to monitor electrolytes (2) Hypernatremia Current Visit: Yes Status: Acute Plan to address problem: Continue on IV fluids. Obtain BMP levels in a.m (3) Sepsis Current Visit: Yes Status: Acute Qualifiers: Sepsis type: sepsis due to unspecified organism Qualified Code(s): A41.9 - Sepsis, unspecified organism Plan to address problem: On IV Zosyn and Vancomycin (4) Hypertension Current Visit: Yes Status: Acute Plan to address problem: Blood pressures are stable (5) Diabetes Current Visit: Yes Status: Acute Plan to address problem: On insulin as per Attending Subjective Date of service: 10/01/17 Principal diagnosis: Hypernatremia Interval history: Patient seen lying in bed. Very sleepy. No family at bedside. Objective - Vital Signs Vital signs: Vital Signs - 12hr 10/01/17 10/01/17 10/01/17 05:35 08:57 10:00 Temperature 98.4 F 98.9 F Pulse Rate 77 81 Respiratory 18 19 Rate Blood Pressure 135/84 143/83 O2 Sat by Pulse 100 100 99 Oximetry - General Appearance General appearance: well-developed, appears stated age EENT: ATNC, PERRL Neck: no JVD, supple Respiratory: Present: Decreased Breath Sounds Cardiology: regular, S1S2 Gastrointestinal: normoactive bowel sounds, other (PEG tube intact) Neurologic: other (Sleepy, nonverbal) Musculoskeletal: other (No edema) - Lab 10/01/17 05:02 09/30/17 04:28 Most recent lab results Calcium 6.9 mg/dL (8.4-10.2) L 09/30/17 04:28 Phosphorus 3.30 mg/dL (2.5-4.5) 09/29/17 13:35 Magnesium 2.30 mg/dL (1.7-2.3) 09/29/17 13:35 Urine Creatinine 49.2 mg/dL (0.1-20.0) H 09/27/17 Unknown Urine Sodium 99 mmol/L 09/27/17 Unknown
[2017-10-01] MEDS: VANCOMYCIN 1,500 MG in NACL 0.9% 500 ML 500 ML IV SCH (19:05)
--- NOTE | 2017-10-01 22:11 | Progress Note ---
Assessment and Plan Patient is a 67 YO Female Chcf Resident at [facility] with HTN, DM, CVA complicated by Dysphagia, Anxiety, A Fib, Legal Blindness, contracture, Glaucoma, HLD, ODALIS, presents to ED for evaluation with fever and generalized weakness and progressive confusion. Patient at baseline is non verbal non verbal but normally awake and alert NH reports that she has progressively gotten weak and minimally responsive. Severe Hypernatremia * Improving, now 147 continue Free water, check serial sodium level, Nephrology input noted. Sepsis- Imporving. POA, possible mild aspiration pneumonitis, Pleural effusion , possible infected pressure ulcer * Cont, Vanc, change cefepime to zosyn for broader coverage. CT abdomen unremarkable. Acute Metabolic Encephalopathy * Appears to be improving with intermittent waxing and wanning. * Avoid all sedating medications Pressure ulcer, sacral right hip. * wound care consult Dehydration/Volume depletion * Continue D5w at 100cc/hr Acute Kidney Injury likely secondary to vasomotor nephropathy * nephrology consult noted. Resolving. Diabete Miletus * Start home dose meds, since tube feeds resumed continue Sliding scale coverage Severe contracture * Passive PT/OT ODALIS * CPAP qhs CVA * Prior episodes now complete immobility Complete Immobility due to frailty * Fall precautions. HTN * Continue current treatment. Hold antihypertensives including CLONIDINE Hypokalemia * Replace Atrial fibrillation * Controlled Legally Blind. * Fall precautions * Assist. dvt/gi PROPHY Still full code per pt's sister. Subjective Date of service: 10/01/17 Principal diagnosis: Hypernatremia Interval history: Minimal verbal out put Objective - Constitutional Vitals: Vital Signs - 12hr 10/01/17 10/01/17 14:26 19:50 Temperature 98.5 F 99.0 F Pulse Rate 79 Respiratory 18 18 Rate Blood Pressure 135/86 138/91 O2 Sat by Pulse 100 Oximetry General appearance: Present: no acute distress, well-nourished - EENT Eyes: PERRL, EOM intact Ears: bilateral: normal - Neck Neck: supple, normal ROM - Respiratory Respiratory effort: normal Respiratory: bilateral: diminished - Cardiovascular Rhythm: regular Heart Sounds: Present: S1 & S2. Absent: gallop, rub Extremities: pulses intact, No edema, normal color, Full ROM - Gastrointestinal General gastrointestinal: Present: soft, non-tender, non-distended, normal bowel sounds - Integumentary Integumentary: clear, warm, dry - Musculoskeletal Musculoskeletal: 1, strength equal bilaterally - Neurologic Neurologic: moves all extremities - Psychiatric Psychiatric: memory intact, appropriate mood/affect, intact judgment & insight - Labs CBC & Chem 7: 10/01/17 05:02 09/30/17 04:28 Labs: Abnormal lab results 10/01/17 10/01/17 10/01/17 Range/Units 00:20 05:02 06:49 RBC 3.28 L (3.65-5.03) M/mm3 Hgb 8.8 L (10.1-14.3) gm/dl Hct 26.9 L (30.3-42.9) % MCH 27 L (28-32) pg RDW 19.1 H (13.2-15.2) % Seg Neutrophils % 73.5 H (40.0-70.0) % POC Glucose 166 H 226 H (70-105) Vancomycin Trough (5.0-20.0) ug/mL 10/01/17 10/01/17 10/01/17 Range/Units 07:38 11:29 14:51 RBC (3.65-5.03) M/mm3 Hgb (10.1-14.3) gm/dl Hct (30.3-42.9) % MCH (28-32) pg RDW (13.2-15.2) % Seg Neutrophils % (40.0-70.0) % POC Glucose 186 H 175 H (70-105) Vancomycin Trough 22.3 H (5.0-20.0) ug/mL 10/01/17 Range/Units 17:17 RBC (3.65-5.03) M/mm3 Hgb (10.1-14.3) gm/dl Hct (30.3-42.9) % MCH (28-32) pg RDW (13.2-15.2) % Seg Neutrophils % (40.0-70.0) % POC Glucose 173 H (70-105) Vancomycin Trough (5.0-20.0) ug/mL
[2017-10-02] MEDS: NOVOLOG SUB-Q SCH ×3 (01:16→13:05)
[2017-10-02] MEDS: KCL 40 MEQ in D5W 1,000 ML IV SCH (04:09)
[2017-10-02 04:19] LABS: Basophils % (Auto) 0.2 % (0.0-1.8); Eosinophils % (Auto) 3.3 % (0.0-4.3); Hemoglobin 8.8 gm/dl (10.1-14.3); Mean Corpuscular HGB Conc 33 % (30-34); Mean Corpuscular Hemoglobin 27 pg (28-32); Mean Corpuscular Volume 82 fl (79-97); Platelet Count 244 K/mm3 (140-440); Red Blood Count 3.31 M/mm3 (3.65-5.03); Red Cell Distribution Width 19.3 % (13.2-15.2); White Blood Count 7.7 K/mm3 (4.5-11.0)
[2017-10-02 04:42] LABS: Alanine Aminotransferase 13 units/L (7-56); Albumin/Globulin Ratio 0.8 %; Alkaline Phosphatase 98 units/L (35-129); BUN/Creatinine Ratio 17; Blood Urea Nitrogen 17 mg/dL (7-17); Carbon Dioxide 24 mmol/L (22-30); Glucose 175 mg/dL (65-100); Sodium 142 mmol/L (137-145); Total Protein 6.9 g/dL (6.3-8.2)
[2017-10-02 05:16] LABS: Calcium 8.8 mg/dL (8.4-10.2)
[2017-10-02 05:17] LABS: Anion Gap 16 mmol/L; Potassium 3.5 mmol/L (3.6-5.0)
[2017-10-02] MEDS: ZOSYN/NS 4.5GM/100ML 4.5 GM/100 ML VIAL IV SCH (06:17)
--- NOTE | 2017-10-02 08:03 | Discharge Summary ---
Providers - Providers Date of Admission: 09/26/17 14:38 Attending physician: BERTA PHAM MD 09/26/17 16:53 Consult to Wound/ET Nurse [CONS] Routine Reason For Exam: wound eval 09/27/17 10:04 Consult to Physician [CONS] Routine Consulting Provider: LINDSAY PINK Reason For Exam: hypernatremia Place consult to:: LINDSAY MNEDOZA Notified:: LINDSAY MENDOZA Phone number called:: [phone] Was contact made?: Yes If yes, spoke with:: LINDSAY MENDOZA Time called:: 10:30 Comment:: AMAURY 09/27/17 10:18 Consult to Dietitian/Nutrition [CONS] Routine Physician Instructions: Reason For Exam: Reason for Consult: Write/Manage Tube Feeding 09/30/17 08:52 Consult to Wound/ET Nurse [CONS] Stat Reason For Exam: wound eval: open wound on (L) side of nose. Primary care physician: BAKING [employer] Hospitalization Reason for admission: Hypernatremia, SPESIS Condition: Stable Hospital course: Patient is a 67 YO Female Penitentiary Resident at [facility] with HTN, DM, CVA complicated by Dysphagia, Anxiety, A Fib, Legal Blindness, contracture, Glaucoma, HLD, ODALIS, presents to ED for evaluation with fever and generalized weakness and progressive confusion. Patient at baseline is non verbal non verbal but normally awake and alert NH reports that she has progressively gotten weak and minimally responsive. and started on emperic antibiotics for sepsis, a code MET was called on the patient due to Worsening AMS likely due to possible administration of tramadol and xanax per nursing staff, both which were discontinued. The patient was treated with free water replacement for severe hypernatremia and that corrected. cultures showed no growth, she had episodes of hypokalemia that was replaced and was seen by wound care for multiple pressure ulcers stage 4 on the Left sacrum stage pressure ulcer measuring [id number] with scant yellow drainage. Wound cleansed with wound cleanser, packed with mesalt, covered with gauze and then telfa. A dry attached eschar noted on left bunion and great toe. No drainage or odor present. Wound cleansed with wound cleanser and painted with bettadine. Right hip lesion with slough to the wound bed. Scant yellow drainage noted. Wound cleansed with wound cleanser and hydrocolloid applied. A scab was noted on right heel and came off when wound was cleansed revealing resurfacing diabetic ulcer. Periwound skin is dark. Left lateral lower leg diabetic ulcer measuring 11x3x0.1cm. Wound draining small amounts of sero-sanguineous drainage with no odor. Wound cleansed with wound cleanser, hydrocolloid applied, covered with gauze and then wrapped with kerlix. Per wound care team, Wound cleansed with wound cleanser and foam dressing applied. Patient is clinically stable stable at this time for discharge. At baseline she is non verbal but normally awake Discharge diagnosis Severe Hypernatremia Sepsis-secondary to mild aspiration pneumonitis, Pleural effusion, possible infected pressure ulcer Acute Metabolic Encephalopathy Pressure ulcer, sacral right hip. Dehydration/Volume depletion Acute Kidney Injury likely secondary to vasomotor nephropathy Diabete Miletus Severe contracture ODALIS CVA Complete Immobility due to frailty HTN Hypokalemia Atrial fibrillation Legally Blind. Disposition: - TO HOME OR SELFCARE Time spent for discharge: 35 MINS Core Measure Documentation - Palliative Care Palliative Care/ Comfort Measures: Not Applicable - Core Measures Any of the following diagnoses?: none - VTE Discharge Requirements Deep Vein Thrombosis/Pulmonary Embolism Present on Admission: No Exam - Physical Exam Narrative exam: VITAL SIGNS: Reviewed. GENERAL: The patient is chronically ill appearing with contractors lower extremity. Vital signs as documented. HEAD: No signs of head trauma. EYES: Pupils are equal. Extraocular movements unable to examine, patient is legally blind. EARS: Hearing grossly intact. MOUTH: Oropharynx is normal. NECK: No adenopathy, no JVD. CHEST: Chest with diminished breath sounds bilaterally. No wheezes, rales, or rhonchi. CPAP this morning CARDIAC: Regular rate and rhythm. S1 and S2, without murmurs, gallops, or rubs. VASCULAR: No Edema. Peripheral pulses normal and equal in all extremities. ABDOMEN: Soft, without detectable tenderness. No sign of distention. No rebound or guarding, and no masses palpated. Bowel Sounds normal. MUSCULOSKELETAL: Good range of motion of all major joints. Extremities without clubbing, cyanosis or edema. NEUROLOGIC EXAM: Awake to verbal stimuli but nonverbal. Unable to perform full neurological exam. Nonverbal PSYCHIATRIC: Mood normal. SKIN: Pressure ulcer unstageable at this time awaiting reevaluation, Multiple skin ulcer - Constitutional Vitals: Temp Pulse Resp BP Pulse Ox 98.8 F 81 18 139/82 95 10/02/17 04:07 10/02/17 04:07 10/02/17 04:07 10/02/17 04:07 10/02/17 07:42 Plan Activity: advance as tolerated, fall precautions Diet: low cholesterol Special Instructions: record daily weights, record daily BP diary, physical therapy, occupational therapy Follow up with: PRIMARY CARE, [Primary Care Provider] - 3-5 Days Prescriptions: traMADol [Ultram 50 MG tab] 50 mg PO Q6HR PRN #7 tablet PRN Reason: Pain
[2017-10-02] MEDS: TYLENOL PO SCH (10:00)
[2017-10-02] MEDS: ASPIRIN PO SCH (10:00)
[2017-10-02] MEDS: VITAMIN C PO SCH (10:00)
[2017-10-02] MEDS: ALPHAGAN P 0.15% OU SCH (10:01)
--- NOTE | 2017-10-02 10:41 | Progress Note ---
Assessment and Plan (1) ARF (acute renal failure) Current Visit: Yes Status: Acute Plan to address problem: resolved cont Kcl supplement Renally dose medications Obtain daily weights Monitor I/O/s Continue to monitor electrolytes (2) Hypernatremia Current Visit: Yes Status: Acute Plan to address problem: improved, will need to titrate water flushes via NGT as needed (3) Sepsis Current Visit: Yes Status: Acute Qualifiers: Sepsis type: sepsis due to unspecified organism Qualified Code(s): A41.9 - Sepsis, unspecified organism Plan to address problem: off IV abx (4) Hypertension Current Visit: Yes Status: Acute Plan to address problem: Blood pressures are stable (5) Diabetes Current Visit: Yes Status: Acute Plan to address problem: On insulin as per primary Subjective Date of service: 10/02/17 Principal diagnosis: Hypernatremia Interval history: awake and alert Objective - Vital Signs Vital signs: Vital Signs - 12hr 10/01/17 10/01/17 10/02/17 23:38 23:40 04:00 Temperature Pulse Rate 89 81 Respiratory 20 19 Rate Blood Pressure O2 Sat by Pulse 100 Oximetry 10/02/17 10/02/17 10/02/17 04:07 04:10 07:42 Temperature 98.8 F Pulse Rate 81 Respiratory 18 18 Rate Blood Pressure 139/82 O2 Sat by Pulse 100 100 95 Oximetry 10/02/17 07:50 Temperature 97.8 F Pulse Rate 80 Respiratory 18 Rate Blood Pressure 146/81 O2 Sat by Pulse 96 Oximetry - General Appearance General appearance: well-developed, well-nourished EENT: ATNC, PERRL, mucous membranes dry Neck: no JVD, no carotid bruit Respiratory: Present: Decreased Breath Sounds Cardiology: regular, S1S2 Gastrointestinal: normoactive bowel sounds, no tenderness, no distended Integumentary: no rash, warm and dry Neurologic: no focal deficit, no asterixis Musculoskeletal: other (no edema in BLE) Psychiatric: cooperative - Lab 10/02/17 03:53 10/02/17 03:53 Most recent lab results Calcium 8.8 mg/dL (8.4-10.2) D 10/02/17 03:53 Phosphorus 3.30 mg/dL (2.5-4.5) 09/29/17 13:35 Magnesium 2.30 mg/dL (1.7-2.3) 09/29/17 13:35 Urine Creatinine 49.2 mg/dL (0.1-20.0) H 09/27/17 Unknown Urine Sodium 99 mmol/L 09/27/17 Unknown
[2017-10-02 12:04] VITALS: BP 148/84
[2017-10-03 14:55] LABS: Vitamin D, 25-OH, Total 28 ng/mL (30-100)
== END 2017-10-02 13:25 | disposition home or self-care (01) | DRG 871 ==
LOC: ED 11:48 → 2B-ACE 14:38
PROVIDERS: ADMIT Internal Medicine; ATTEND Internal Medicine
PROC: 5A09457 Assistance with Respiratory Ventilation, 24-96 Consecutive Hours, Continuous Positive Airway Pressure (ICD-10-PCS; 2017-09-27)
PROC: 5A09357 Assistance with Respiratory Ventilation, Less than 24 Consecutive Hours, Continuous Positive Airway Pressure (ICD-10-PCS; principal; 2017-09-30)
DX: A41.9 Sepsis, unspecified organism (principal); L89.154 Pressure ulcer of sacral region, stage 4; J69.0 Pneumonitis due to inhalation of food and vomit; G93.41 Metabolic encephalopathy; N17.0 Acute kidney failure with tubular necrosis; E87.2 Acidosis; E87.0 Hyperosmolality and hypernatremia; J90 Pleural effusion, not elsewhere classified; L97.929 Non-pressure chronic ulcer of unspecified part of left lower leg with unspecified severity; I10 Essential (primary) hypertension; F41.9 Anxiety disorder, unspecified; R13.10 Dysphagia, unspecified; I48.91 Unspecified atrial fibrillation; H54.8 Legal blindness, as defined in USA; G47.33 Obstructive sleep apnea (adult) (pediatric); E78.5 Hyperlipidemia, unspecified; E87.6 Hypokalemia; E11.622 Type 2 diabetes mellitus with other skin ulcer; E86.0 Dehydration; E86.9 Volume depletion, unspecified; F32.9 Major depressive disorder, single episode, unspecified; E11.51 Type 2 diabetes mellitus with diabetic peripheral angiopathy without gangrene; D64.9 Anemia, unspecified; Z86.73 Personal history of transient ischemic attack (TIA), and cerebral infarction without residual deficits; Z88.5 Allergy status to narcotic agent
CPT/HCPCS: 36415; 70450; 71010; 74176; 80048; 80053; 80202; 81001; 82140; 82306; 82550; 82570; 82805; 82962; 83735; 83880; 84100; 84295; 84300; 84520; 85007; 85025; 85027; 85610; 87040; 87086; 87493; 93005; 93010; 93306; 94660; 94760; 96365; 96366; 96375; 99285; J0610; J0692; J1815; J2310; J2543; J3370; J3480; J7030; J7040; J7070

== ENCOUNTER 2017-12-19 21:34 | Inpatient (IN) | payer MEDICARE ==
[2017-12-19] MEDS ORDERED: NACL 0.9% 1000 ML 1,000 ML IV ONE (21:57)
--- NOTE | 2017-12-19 22:03 | Emergency Department Report ---
ED Altered Mental Status HPI - General Chief Complaint: Altered Mental Status Stated Complaint: DEHYDRATION Time Seen by Provider: 12/19/17 21:54 Source: EMS Mode of arrival: Stretcher Limitations: Altered Mental Status, Physical Limitation - History of Present Illness Initial Comments: Patient is 67-year-old female from [facility]. Patient brought by EMS for evaluation of altered mental status for the last 2-3 days patient had an abnormal value which includes sodium of 162. Patient is nonverbal and not communicating. Most of the history is from the correction records and EMS. Patient scheduled for G-tube replacement tomorrow by Dr. Kev Penaloza. Patient had history of CVA, hypertension, diabetes. Patient is DO NOT RESUSCITATE. MD Complaint: altered mental status, decreased responsiveness -: Gradual, days(s) Severity: moderate Consistency of Symptoms: constant - Related Data Home Medications Medication Instructions Recorded Confirmed Last Taken Acetaminophen [Tylenol Extra 500 mg PO BID 09/26/17 09/26/17 Unknown Strength] Amlodipine Besylate [Norvasc] 10 mg PO DAILY 09/26/17 09/26/17 Unknown Ascorbic Acid [Vitamin C] 250 mg PO BID 09/26/17 09/26/17 Unknown Aspirin [Aspirin TAB] 325 mg PO QDAY 09/26/17 09/26/17 Unknown Brimonidine Tartrate [Alphagan P] 5 ml OP BID 09/26/17 09/26/17 Unknown Ferrous Sulfate [Iron] 325 mg PO DAILY 09/26/17 09/26/17 Unknown Insulin Lispro [Humalog 100 0 units SQ AC 09/26/17 09/26/17 Unknown UNITS/ML Kwikpen] Metformin HCl [Glucophage] 500 mg PO DAILY 09/26/17 09/26/17 Unknown Multivitamin Tab W-MINERAL 1 each PO QD 09/26/17 09/26/17 Unknown [Multiple Vitamin/Mineral (Theragran M)] [place]-3 Fatty Acids/Fish Oil [Fish 1 each PO TID 09/26/17 09/26/17 Unknown Oil 1,000 mg Softgel] Simvastatin [Zocor TAB] 60 mg PO QHS 09/26/17 09/26/17 Unknown Previous Rx's Medication Instructions Recorded Last Taken Type traMADol [Ultram 50 MG tab] 50 mg PO Q6HR PRN #7 tablet 10/02/17 Unknown Rx Allergies Allergy/AdvReac Type Severity Reaction Status Date / Time codeine Allergy Unknown Verified 09/26/17 12:32 ED Review of Systems ROS: Stated complaint: DEHYDRATION Other details as noted in HPI Comment: Unobtainable due to pts medical conditions ED Past Medical Hx - Past Medical History Hx Hypertension: Yes Hx CVA: Yes Hx Diabetes: Yes Additional medical history: MDD, AFib, Glaucoma, legal blindness, PVD, Anxiety, Feed tube - Surgical History Additional Surgical History: Feed tube - Social History Smoking Status: Unknown if ever smoked - Medications Home Medications: Home Medications Medication Instructions Recorded Confirmed Last Taken Type Acetaminophen [Tylenol Extra 500 mg PO BID 09/26/17 09/26/17 Unknown History Strength] Amlodipine Besylate [Norvasc] 10 mg PO DAILY 09/26/17 09/26/17 Unknown History Ascorbic Acid [Vitamin C] 250 mg PO BID 09/26/17 09/26/17 Unknown History Aspirin [Aspirin TAB] 325 mg PO QDAY 09/26/17 09/26/17 Unknown History Brimonidine Tartrate [Alphagan P] 5 ml OP BID 09/26/17 09/26/17 Unknown History Ferrous Sulfate [Iron] 325 mg PO DAILY 09/26/17 09/26/17 Unknown History Insulin Lispro [Humalog 100 0 units SQ AC 09/26/17 09/26/17 Unknown History UNITS/ML Kwikpen] Metformin HCl [Glucophage] 500 mg PO DAILY 09/26/17 09/26/17 Unknown History Multivitamin Tab W-MINERAL 1 each PO QD 09/26/17 09/26/17 Unknown History [Multiple Vitamin/Mineral (Theragran M)] [place]-3 Fatty Acids/Fish Oil [Fish 1 each PO TID 09/26/17 09/26/17 Unknown History Oil 1,000 mg Softgel] Simvastatin [Zocor TAB] 60 mg PO QHS 09/26/17 09/26/17 Unknown History traMADol [Ultram 50 MG tab] 50 mg PO Q6HR PRN #7 tablet 10/02/17 Unknown Rx ED Physical Exam - General Limitations: Altered Mental Status, Physical Limitation General appearance: alert, in no apparent distress - Head Head exam: Present: atraumatic, normocephalic - ENT ENT exam: Present: mucous membranes dry - Neck Neck exam: Present: normal inspection, full ROM. Absent: tenderness, meningismus, lymphadenopathy, thyromegaly - Respiratory Respiratory exam: Present: normal lung sounds bilaterally. Absent: wheezes, rales, rhonchi, decreased breath sounds, prolonged expiratory - Cardiovascular Cardiovascular Exam: Present: regular rate, normal rhythm, normal heart sounds. Absent: systolic murmur, diastolic murmur - GI/Abdominal GI/Abdominal exam: Present: soft, normal bowel sounds, other (G-tube in place colostomy in place.). Absent: distended, tenderness, guarding, rebound, rigid, organomegaly, mass, bruit, pulsatile mass - Neurological Exam Neurological exam: Present: altered - Skin Skin exam: Present: dry ED Course Vital Signs 12/19/17 12/19/17 12/19/17 21:36 22:01 22:04 Temperature 98.5 F 98.5 F Pulse Rate 90 90 Respiratory 18 18 18 Rate Blood Pressure 122/78 Blood Pressure 122/78 [Left] O2 Sat by Pulse 98 98 98 Oximetry 12/19/17 22:08 Temperature Pulse Rate 90 Respiratory Rate Blood Pressure Blood Pressure [Left] O2 Sat by Pulse Oximetry - Lab Data Result diagrams: 12/19/17 22:00 12/19/17 22:00 Lab Results 12/19/17 12/19/17 12/19/17 Range/Units 22:00 22:00 22:00 WBC 11.6 H (4.5-11.0) K/mm3 RBC 3.86 (3.65-5.03) M/mm3 Hgb 9.6 L (10.1-14.3) gm/dl Hct 31.8 (30.3-42.9) % MCV 83 (79-97) fl MCH 25 L (28-32) pg MCHC 30 (30-34) % RDW 19.5 H (13.2-15.2) % Plt Count 358 (140-440) K/mm3 Lymph % (Auto) 13.5 (13.4-35.0) % [place] % (Auto) 6.7 (0.0-7.3) % Eos % (Auto) 2.3 (0.0-4.3) % Baso % (Auto) 0.4 (0.0-1.8) % Lymph # 1.6 (1.2-5.4) K/mm3 [place] # 0.8 (0.0-0.8) K/mm3 Eos # 0.3 (0.0-0.4) K/mm3 Baso # 0.0 (0.0-0.1) K/mm3 Seg Neutrophils % 77.1 H (40.0-70.0) % Seg Neutrophils # 8.9 H (1.8-7.7) K/mm3 PT (12.2-14.9) Sec. INR (0.87-1.13) APTT (24.2-36.6) Sec. Sodium 157 H (137-145) mmol/L Potassium 3.4 L (3.6-5.0) mmol/L Chloride 117.4 H (98-107) mmol/L Carbon Dioxide 20 L (22-30) mmol/L Anion Gap 23 mmol/L BUN 98 H (7-17) mg/dL Creatinine 3.6 H (0.7-1.2) mg/dL Estimated GFR 15 ml/min BUN/Creatinine Ratio 27 % Glucose 154 H (65-100) mg/dL Lactic Acid 1.40 (0.7-2.0) mmol/L Calcium 9.5 (8.4-10.2) mg/dL Total Bilirubin 0.40 (0.1-1.2) mg/dL AST 17 (5-40) units/L ALT 17 (7-56) units/L Alkaline Phosphatase 111 (35-129) units/L Total Protein 8.1 (6.3-8.2) g/dL Albumin 2.9 L (3.9-5) g/dL Albumin/Globulin Ratio 0.6 % 12/19/17 Range/Units 22:00 WBC (4.5-11.0) K/mm3 RBC (3.65-5.03) M/mm3 Hgb (10.1-14.3) gm/dl Hct (30.3-42.9) % MCV (79-97) fl MCH (28-32) pg MCHC (30-34) % RDW (13.2-15.2) % Plt Count (140-440) K/mm3 Lymph % (Auto) (13.4-35.0) % [place] % (Auto) (0.0-7.3) % Eos % (Auto) (0.0-4.3) % Baso % (Auto) (0.0-1.8) % Lymph # (1.2-5.4) K/mm3 [place] # (0.0-0.8) K/mm3 Eos # (0.0-0.4) K/mm3 Baso # (0.0-0.1) K/mm3 Seg Neutrophils % (40.0-70.0) % Seg Neutrophils # (1.8-7.7) K/mm3 PT 16.7 H (12.2-14.9) Sec. INR 1.28 H (0.87-1.13) APTT 34.3 (24.2-36.6) Sec. Sodium (137-145) mmol/L Potassium (3.6-5.0) mmol/L Chloride (98-107) mmol/L Carbon Dioxide (22-30) mmol/L Anion Gap mmol/L BUN (7-17) mg/dL Creatinine (0.7-1.2) mg/dL Estimated GFR ml/min BUN/Creatinine Ratio % Glucose (65-100) mg/dL Lactic Acid (0.7-2.0) mmol/L Calcium (8.4-10.2) mg/dL Total Bilirubin (0.1-1.2) mg/dL AST (5-40) units/L ALT (7-56) units/L Alkaline Phosphatase (35-129) units/L Total Protein (6.3-8.2) g/dL Albumin (3.9-5) g/dL Albumin/Globulin Ratio % - Medical Decision Making Discussed with Dr. Deirdre Vasques, I presented the patient to call and she agreed to admit her service. Critical care attestation.: If time is entered above; I have spent that time in minutes in the direct care of this critically ill patient, excluding procedure time. ED Disposition Clinical Impression: Altered mental status, Acute renal failure, Hypernatremia Disposition: 09 OP ADMIT IP TO THIS HOSP Is pt being admited?: Yes Condition: Stable Referrals: RICH MENON MD [Primary Care Provider] - 3-5 Days
--- NOTE | 2017-12-19 22:40 | XRay Report ---
FINAL REPORT PROCEDURE: XR CHEST 1V AP TECHNIQUE: Chest radiograph anteroposterior view. CPT 03725 HISTORY: Altered Mental Status COMPARISON: No prior studies are available for comparison. FINDINGS: Patient is rotated to the left. There is moderate elevation of right hemidiaphragm. Heart: Normal. Mediastinum/Vessels: Normal. Lungs/Pleural space: An inhomogeneous density is noted in the left retrocardiac region. Left lower lung and left costophrenic angle are obscured by the cardiac shadow. There is minimal blunting of right costophrenic angle. Right lung is clear.. Bony thorax: No acute osseous abnormality. Life support devices: None. IMPRESSION: Limited study due to suboptimal positioning. Left lower lung and left costophrenic angle are obscured with cardiac shadow. Any underlying infiltrates or left pleural effusion cannot be excluded. Minimal blunting of right costophrenic angle is suspicious for minimal right pleural effusion. A two view chest study is recommended whenever the patient's condition permits..
[2017-12-19 22:46] LABS: Basophils % (Auto) 0.4 % (0.0-1.8); Eosinophils # (Auto) 0.3 K/mm3 (0.0-0.4); Eosinophils % (Auto) 2.3 % (0.0-4.3); Hematocrit 31.8 % (30.3-42.9); Hemoglobin 9.6 gm/dl (10.1-14.3); Lymphocytes # (Auto) 1.6 K/mm3 (1.2-5.4); Lymphocytes % (Auto) 13.5 % (13.4-35.0); Mean Corpuscular HGB Conc 30 % (30-34); Mean Corpuscular Volume 83 fl (79-97); Monocytes # (Auto) 0.8 K/mm3 (0.0-0.8); Monocytes % (Auto) 6.7 % (0.0-7.3); Platelet Count 358 K/mm3 (140-440); Red Blood Count 3.86 M/mm3 (3.65-5.03); Red Cell Distribution Width 19.5 % (13.2-15.2)
[2017-12-19 22:49] LABS: Mean Corpuscular Hemoglobin 25 pg (28-32)
[2017-12-19 22:58] LABS: INR 1.28 (0.87-1.13)
[2017-12-19 22:59] LABS: Partial Thromboplastin Time 34.3 Sec. (24.2-36.6)
[2017-12-19 23:01] LABS: Albumin 2.9 g/dL (3.9-5); Calcium 9.5 mg/dL (8.4-10.2)
[2017-12-20] MEDS ORDERED: TYLENOL PO PRN (01:56)
[2017-12-20] MEDS ORDERED: ZOFRAN IV PRN (01:56)
[2017-12-20] MEDS ORDERED: NACL 0.9% 1000 ML 2,000 ML IV ONE (01:58)
[2017-12-20] MEDS ORDERED: D5W 1,000 ML IV SCH (02:00)
--- NOTE | 2017-12-20 02:00 | History and Physical Report ---
History of Present Illness Date of examination: 12/19/17 History of present illness: 67-year-old woman from the retirement with history of CVA, hypertension, dementia, glaucoma, A. fib, hyperlipidemia, depression, anxiety was sent to the emergency room for evaluation of altered mental status and because her sodium was elevated. Her peg tube is also leaking and is schedule to change. Patient is unable to give a history, system unobtainable PAST MEDICAL HISTORY: Hypertension, dementia, A. fib, hyperlipidemia, dementia, depression, anxiety, severe PAST SURGICAL HISTORY:Unknown SOCIAL HISTORY: Unknown FAMILY HISTORY:Unknown Medications and Allergies Allergies Allergy/AdvReac Type Severity Reaction Status Date / Time codeine Allergy Unknown Verified 09/26/17 12:32 Home Medications Medication Instructions Recorded Confirmed Last Taken Type Acetaminophen [Tylenol Extra 500 mg PO BID 09/26/17 09/26/17 Unknown History Strength] Amlodipine Besylate [Norvasc] 10 mg PO DAILY 09/26/17 09/26/17 Unknown History Ascorbic Acid [Vitamin C] 250 mg PO BID 09/26/17 09/26/17 Unknown History Aspirin [Aspirin TAB] 325 mg PO QDAY 09/26/17 09/26/17 Unknown History Brimonidine Tartrate [Alphagan P] 5 ml OP BID 09/26/17 09/26/17 Unknown History Ferrous Sulfate [Iron] 325 mg PO DAILY 09/26/17 09/26/17 Unknown History Insulin Lispro [Humalog 100 0 units SQ AC 09/26/17 09/26/17 Unknown History UNITS/ML Kwikpen] Metformin HCl [Glucophage] 500 mg PO DAILY 09/26/17 09/26/17 Unknown History Multivitamin Tab W-MINERAL 1 each PO QD 09/26/17 09/26/17 Unknown History [Multiple Vitamin/Mineral (Theragran M)] [place]-3 Fatty Acids/Fish Oil [Fish 1 each PO TID 09/26/17 09/26/17 Unknown History Oil 1,000 mg Softgel] Simvastatin [Zocor TAB] 60 mg PO QHS 09/26/17 09/26/17 Unknown History traMADol [Ultram 50 MG tab] 50 mg PO Q6HR PRN #7 tablet 10/02/17 Unknown Rx Active Meds: Active Medications Sodium Chloride (Nacl 0.9% 1000 Ml) 1,000 mls @ 125 mls/hr IV ONCE ONE Stop: 12/20/17 05:56 Last Admin: 12/19/17 22:58 Dose: 125 mls/hr Exam - Physical Exam Narrative exam: Gen. appearance: Patient lying in bed, no apparent distress HEENT: Normocephalic, atraumatic, pupils equally round and reactive to light, extraocular movement intact, and no sclericterus,. No JVD or thyromegaly or nodule,neck supple, no carotid bruit ,mucous membranesdry, unable to examine oral cavity Heart: S1, S2, regular rate and rhythm Lungs: Clear to auscultation bilaterally, breathing comfortable Abdomen: Positive bowel sounds, nontender, nondistended, no organomegaly Extremity: No edema, cyanosis, clubbing Skin: No rash, nodules, warm, dry Neuro: difficult to assess - Constitutional Vitals: Temp Pulse Resp BP Pulse Ox 98.5 F 90 26 H 136/83 59 L 12/19/17 22:01 12/20/17 01:15 12/20/17 01:15 12/20/17 01:15 12/20/17 01:15 Results - Labs CBC & Chem 7: 12/19/17 22:00 12/19/17 22:00 Labs: Abnormal lab results 12/19/17 12/19/17 12/19/17 Range/Units 22:00 22:00 22:00 WBC 11.6 H (4.5-11.0) K/mm3 Hgb 9.6 L (10.1-14.3) gm/dl MCH 25 L (28-32) pg RDW 19.5 H (13.2-15.2) % Seg Neutrophils % 77.1 H (40.0-70.0) % Seg Neutrophils # 8.9 H (1.8-7.7) K/mm3 PT 16.7 H (12.2-14.9) Sec. INR 1.28 H (0.87-1.13) Sodium 157 H (137-145) mmol/L Potassium 3.4 L (3.6-5.0) mmol/L Chloride 117.4 H (98-107) mmol/L Carbon Dioxide 20 L (22-30) mmol/L BUN 98 H (7-17) mg/dL Creatinine 3.6 H (0.7-1.2) mg/dL Glucose 154 H (65-100) mg/dL Albumin 2.9 L (3.9-5) g/dL - Imaging and Cardiology EKG: image reviewed Chest x-ray: report reviewed Assessment and Plan Assessment Metabolic encephalopathy Acute renal failure Hypernatremia Hypertension Dementia A. fib Hyperlipidemia Depression Anxiety Plan Admit to medicine Start IV fliuds, monitor sodium and kidney function Consult GI for PEG replacement DVT prophalaxis
[2017-12-20] MEDS ORDERED: SODIUM BICARBONATE FEEDTUBE PRN (09:35)
[2017-12-20] MEDS ORDERED: SIMPLE SYRUP FEEDTUBE PRN ×2 (09:35)
[2017-12-20] MEDS ORDERED: PANCREAZE DR 10,500 UNIT FEEDTUBE PRN (09:35)
[2017-12-20] MEDS ORDERED: LOVENOX SUB-Q SCH (10:00)
--- NOTE | 2017-12-20 10:53 | Progress Note ---
Assessment and Plan Assessment and plan: Patient is a 67-year-old woman who is a shelter resident has [facility] with a plethora of severe comorbidities including advanced dementia with contractures, hypertension, type 2 diabetes mellitus, glaucoma, cataracts, blind, atrial fibrillation, sacral decubitus pressure ulcer , CVA with aphasia/dysphagia status post PEG tube and quadriplegia/bed bound state who presented to [facility] emergency department with worsen AMS, hypernatremia and PEG leakage with possible replacement pCXR reported as limited exam due to position -Acute metabolic encephalopathy: Treat hypernatremia -Hypernatremia: Treat with hypotonic solution -Hypokalemia: Replace and recheck a.m. -Suspect severe malnutrition: Consult Large Animal Veterinarian -Malfunction PEG: GI consultedd -ARF, vasomotor nephropathy, poa, Cr was 1.0 on 2016: Consult nephrology, get renal u/s -Sacral pressure ulcer present on admission: Consult and discussed wound care nurse DNR per chart History Interval history: Patient was seen and examined. Follow-up on current diagnosis altered mental status still present. Overnight uneventful, no issues reported to me. Patient is nonverbal. Imaging, nursing note, chart, labs and old chart reviewed. Hospitalist Physical - Physical exam Narrative exam: GEN: Chronic debilitated, cachectic, NAD, eyes open, nonverbal HEENT: NCAT, EOMI, PERRL, OP pasty and dry NECK: no adenopathy, no thyromegaly, no JVD CVS/HEART: RRR, NORMAL S1S2, pulses present bilaterally CHEST/LUNGS: Symmetrical chest expansion, good air entry bilaterally GI/Abdomen: soft, ND, PEG tube present, good bowel sounds, no guarding or rebound /Bladder: no grimacing with palp EXT/Skin: Atrophic limbs, sacral dressing intact MSK: Contractures 4 Neuro: Doesn't follow commands, breathing normal overall, maintaining her airway Psych: Confused - Constitutional Vitals: Temp Pulse Resp BP Pulse Ox 98.5 F 80 25 H 116/72 100 12/19/17 22:01 12/20/17 02:30 12/20/17 02:30 12/20/17 02:30 12/20/17 02:30 Results - Labs CBC & Chem 7: 12/19/17 22:00 12/19/17 22:00 Labs: Laboratory Last Values WBC 11.6 K/mm3 (4.5-11.0) H 12/19/17 22:00 RBC 3.86 M/mm3 (3.65-5.03) 12/19/17 22:00 Hgb 9.6 gm/dl (10.1-14.3) L 12/19/17 22:00 Hct 31.8 % (30.3-42.9) 12/19/17 22:00 MCV 83 fl (79-97) 12/19/17 22:00 MCH 25 pg (28-32) L 12/19/17 22:00 MCHC 30 % (30-34) 12/19/17 22:00 RDW 19.5 % (13.2-15.2) H 12/19/17 22:00 Plt Count 358 K/mm3 (140-440) 12/19/17 22:00 Lymph % (Auto) 13.5 % (13.4-35.0) 12/19/17 22:00 [place] % (Auto) 6.7 % (0.0-7.3) 12/19/17 22:00 Eos % (Auto) 2.3 % (0.0-4.3) 12/19/17 22:00 Baso % (Auto) 0.4 % (0.0-1.8) 12/19/17 22:00 Lymph # 1.6 K/mm3 (1.2-5.4) 12/19/17 22:00 [place] # 0.8 K/mm3 (0.0-0.8) 12/19/17 22:00 Eos # 0.3 K/mm3 (0.0-0.4) 12/19/17 22:00 Baso # 0.0 K/mm3 (0.0-0.1) 12/19/17 22:00 Seg Neutrophils % 77.1 % (40.0-70.0) H 12/19/17 22:00 Seg Neutrophils # 8.9 K/mm3 (1.8-7.7) H 12/19/17 22:00 PT 16.7 Sec. (12.2-14.9) H 12/19/17 22:00 INR 1.28 (0.87-1.13) H 12/19/17 22:00 APTT 34.3 Sec. (24.2-36.6) 12/19/17 22:00 Sodium 157 mmol/L (137-145) H 12/19/17 22:00 Potassium 3.4 mmol/L (3.6-5.0) L 12/19/17 22:00 Chloride 117.4 mmol/L (98-107) H 12/19/17 22:00 Carbon Dioxide 20 mmol/L (22-30) L 12/19/17 22:00 Anion Gap 23 mmol/L 12/19/17 22:00 BUN 98 mg/dL (7-17) H 12/19/17 22:00 Creatinine 3.6 mg/dL (0.7-1.2) H 12/19/17 22:00 Estimated GFR 15 ml/min 12/19/17 22:00 BUN/Creatinine Ratio 27 % 12/19/17 22:00 Glucose 154 mg/dL (65-100) H 12/19/17 22:00 Lactic Acid 1.40 mmol/L (0.7-2.0) 12/19/17 22:00 Calcium 9.5 mg/dL (8.4-10.2) 12/19/17 22:00 Total Bilirubin 0.40 mg/dL (0.1-1.2) 12/19/17 22:00 AST 17 units/L (5-40) 12/19/17 22:00 ALT 17 units/L (7-56) 12/19/17 22:00 Alkaline Phosphatase 111 units/L (35-129) 12/19/17 22:00 Total Protein 8.1 g/dL (6.3-8.2) 12/19/17 22:00 Albumin 2.9 g/dL (3.9-5) L 12/19/17 22:00 Albumin/Globulin Ratio 0.6 % 12/19/17 22:00
[2017-12-20] MEDS ORDERED: D5W 1,000 ML with KCL 20 MEQ IV SCH (11:04)
[2017-12-20] MEDS ORDERED: D50W (25GM) Syringe IV PRN (11:04)
--- NOTE | 2017-12-20 14:11 | Consultation ---
History of Present Illness - History of Present Illness Thank you for the consultation patient was evaluated today. Source of information; patient's current chart, old chart, patient daughter at bedside History of presenting illness; Patient is a 67-year-old -[place] female who has been admitted here with multiple health related issues including altered mental status which has been present for last 2-3 days and elevated sodium of 162. Patient is unable to provide any history most the information was obtained from patient's current chart as well as patient daughter. She has no prior history of any chronic kidney disease. patient has been also noted to have malfunctioning PEG tube at this time, and GI service is being consulted Blood cultures currently pending unremarkable however Patient was taking metformin in the outpatient setting in addition to several different medications and is currently admitted with acute renal failure she is currently feeding tube dependent(PEG tube currently not working), case also discuss with patient's daughter at the bedside Currently limited around 9.6 sodium 157 potassium 3.4 urine 98 with creatinine of 3.6 Revealed old records show that her creatinine was 1.0 as of September 2017 when she was admitted with acute renal failure on September 26, 2017 Past medical history significant for Hypertension Diabetes CVA Acute renal failure Anemia with iron deficiency Hyperlipidemia dementia Contracture Atrial fibrillation Current allergies codeine Home medications present medication: Reviewed Social history patient is currently a resident of group home Family history: Unable to obtain Review of system: Unable to obtain due to altered mental status Labs and x-rays: Were reviewed from the current chart Physical examination General: No acute distress/encephalopathic HEENT: Oral mucosa moist no pharyngeal erythema no pallor or icterus no uremic order Neck: Supple no evidence of any thyromegaly trachea midline no JVD Chest: Clear to auscultation no crackles are also wheezes anteriorly Heart: Regular rate and rhythm S1-S2 heard no S3-S4 Abdomen: Soft nontender no renal bruit no CVA tenderness no suprapubic fullness no organomegaly Extremity: Minimal edema dry skin no peripheral cyanosis pulses palpable Neurological: present:encephalopathy but arousable does not follow any personal focal mount Back: Nontender thoracolumbar spine Musculoskeletal: No joint effusion noted Skin: No petechial rash/noted Assessment and plan Acute kidney injury in a patient who is 67-year-old has had history of acute renal failure in the prior admission creatinine was around 1.5 but did normalize to 1 currently admitted with severe renal failure but mostly appears to be prerenal possibility of acute tubular necrosis due to prolonged volume depletion needs to be ruled out. Etiology of renal failure appears to be unclear at this time rule out any possibility of obstruction, urinary tract infection rule out other causes Hypernatremia: Mostly resulting from free water deprivation patient has been resuscitated with IV fluid will monitor labs including uric acid a splenic tear and sodium to guide the fluid therapy Altered mental status in a patient who does history of prior stroke; currently being given tube feeding Hypokalemia: Replace and follow Encephalopathy appears to be multifactorial in etiology Malfunctioning PEG tube GI to see and follow Renal prognosis remains guarded at this time Nature and severity of renal-related issues were discussed with patient's daughter all questions were answered We'll continue to follow and make recommendations from renal standpoint. If you have any questions please feel free to contact me at [phone] Thank you for the consultation. Medications and Allergies Allergies Allergy/AdvReac Type Severity Reaction Status Date / Time codeine Allergy Unknown Verified 09/26/17 12:32 Home Medications Medication Instructions Recorded Confirmed Last Taken Type Acetaminophen [Tylenol Extra 500 mg FEEDTUBE BID 09/26/17 12/20/17 Unknown History Strength] Amlodipine Besylate [Norvasc] 10 mg FEEDTUBE DAILY 09/26/17 12/20/17 Unknown History Ascorbic Acid [Vitamin C] 250 mg FEEDTUBE BID 09/26/17 12/20/17 Unknown History Aspirin [Aspirin TAB] 325 mg FEEDTUBE QDAY 09/26/17 12/20/17 Unknown History Ferrous Sulfate [Iron] 325 mg FEEDTUBE DAILY 09/26/17 12/20/17 Unknown History Insulin Lispro [Humalog 100 0 units SQ AC 09/26/17 12/20/17 Unknown History UNITS/ML Kwikpen] Metformin HCl [Glucophage] 500 mg FEEDTUBE DAILY 09/26/17 12/20/17 Unknown History Multivitamin Tab W-MINERAL 1 each FEEDTUBE QD 09/26/17 12/20/17 Unknown History [Multiple Vitamin/Mineral (Theragran M)] [place]-3 Fatty Acids/Fish Oil [Fish 1 each FEEDTUBE TID 09/26/17 12/20/17 Unknown History Oil 1,000 mg Softgel] Simvastatin [Zocor TAB] 60 mg FEEDTUBE QHS 09/26/17 12/20/17 Unknown History Brimonidine Tartrate [Alphagan P 1 drop OU BID 12/20/17 12/20/17 Unknown History 0.1%] Potassium Chloride 20 meq FEEDTUBE 2XW 12/20/17 12/20/17 Unknown History Sodium Bicarbonate 650 mg FEEDTUBE Q7D 12/20/17 12/20/17 Unknown History traMADol [Ultram 50 MG tab] 50 mg FEEDTUBE Q6HR PRN 12/20/17 12/20/17 Unknown History Active Meds: Active Medications Acetaminophen (Tylenol) 650 mg PO Q4H PRN PRN Reason: Pain MILD(1-3)/Fever >100.5/CARRILLO Lipase/Protease/Amylase (Pancrenohemy Dr 10,500 Unit) 1 each FEEDTUBE PRN PRN PRN Reason: For Clogged Feeding Tube Dextrose (D50w (25gm) Syringe) 50 ml IV PRN PRN PRN Reason: Hypoglycemia Enoxaparin Sodium (Lovenox) 30 mg SUB-Q QDAY FABIOLA Last Admin: 12/20/17 10:50 Dose: 30 mg Potassium Chloride 20 meq/ (Dextrose) 1,010 mls @ 75 mls/hr IV DIRECT FABIOLA Insulin Aspart (Novolog) 0 units SUB-Q Q6HR FABIOLA; Protocol Miscellaneous Medication (Brimonidine Tartrate [Alphagan P 0.1%]) 1 drop OU BID FABIOLA Ondansetron HCl (Zofran) 4 mg IV Q8H PRN PRN Reason: N/V unrelieved by Reglan Simple Syrup (Simple Syrup) 15 ml FEEDTUBE PRN PRN PRN Reason: Hypoglycemia Simple Syrup (Simple Syrup) 30 ml FEEDTUBE PRN PRN PRN Reason: Hypoglycemia Sodium Bicarbonate (Sodium Bicarbonate) 325 mg FEEDTUBE PRN PRN PRN Reason: For Clogged Feeding Tube Exam - Vital Signs Vital signs: Vital Signs Pulse Resp Pulse Ox 90 29 H 98 12/19/17 21:30 12/19/17 21:30 12/19/17 21:30 Results - Lab Results 12/19/17 22:00 12/19/17 22:00 Most recent lab results Calcium 9.5 mg/dL (8.4-10.2) 12/19/17 22:00
[2017-12-20] MEDS: NOVOLOG SUB-Q SCH ×2 (14:39→18:33)
[2017-12-20 15:17] LABS: Uric Acid 13.4 mg/dL (3.5-7.6)
[2017-12-20] MEDS ORDERED: REGLAN IV PRN (17:26)
--- NOTE | 2017-12-20 17:46 | Ultrasound Report ---
FINAL REPORT EXAM: US RENAL BILAT HISTORY: ARF TECHNIQUE: Ultrasound examination of the kidneys PRIORS: None. FINDINGS: Visualized right kidney: 11.9 x 4.7 x 3.9 cm. Visualized left kidney: 12.7 x 5.5 x 5.0 cm. Renal cortical thickness is 16 mm on the right and 17 mm on the left. Focal lesion: None Calculus: None Hydronephrosis: None Perinephric fluid: None Urinary bladder: No evidence of focal abnormality in visible portion. IMPRESSION: No sonographic evidence of renal pathology
[2017-12-20 17:58] LABS: Bilirubin,Urine NEG (Negative); Blood,Urine MOD (Negative); Color,Urine Yellow (Yellow); Mucus,Urine FEW /HPF; Urobilinogen,Urine < 2.0 mg/dL (<2.0)
[2017-12-20] MEDS ORDERED: LEVAQUIN 250MG/50ML 250 MG/50 ML BAG IV SCH (18:00)
[2017-12-20 18:05] LABS: Creatinine,Urine 90.2 mg/dL (0.1-20.0)
[2017-12-20] MEDS: cefTRIAXone 1 GM in NACL 0.9% 20 ML IV SCH (18:23)
--- NOTE | 2017-12-20 21:40 | Cat Scan Report ---
FINAL REPORT PROCEDURE: CT ABDOMEN PELVIS WO CON TECHNIQUE: Computerized axial tomography of the abdomen and pelvis was performed without intravenous contrast. This study is performed without intravascular contrast material and its sensitivity for abdominal and pelvic pathology, including neoplasms, inflammation, abscess, free fluid, thrombosis, arterial dissection and infarction, is reduced compared with a contrast enhanced study. HISTORY: abdominal pain LEAKING NG TUBE COMPARISON: No prior studies are available for comparison. FINDINGS: Infiltrates are noted in bilateral lower lobes. Liver, spleen, and adrenal glands are within normal limits. Bilateral kidneys demonstrate normal density without calculi or hydronephrosis. Aorta is of normal caliber. There is no free fluid or free air. Gallbladder is unremarkable. Small bowel loops are within normal limits. Colon and rectum are unremarkable. The gastrostomy tube is terminating within anterior abdominal wall. Extensive induration of subcutaneous fat with large amount of air is noted involving the left upper quadrant anterior abdominal wall. IMPRESSION: Gastrostomy tube is within the anterior abdominal wall with extensive changes of inflammation. Due to the presence of air any underlying infection cannot be excluded. Clinical correlation is recommended..
[2017-12-20] MEDS ORDERED: NON-FORMULARY (Brimonidine Tartrate [Alphagan P 0.1%] 1 DROP) OU SCH (22:00)
[2017-12-20] MEDS ORDERED: MORPHINE IV SCH (23:15)
[2017-12-21] MEDS: ALPHAGAN P 0.15% OU SCH ×3 (00:06→21:16)
[2017-12-21] MEDS: NOVOLOG SUB-Q SCH ×4 (01:59→19:44)
[2017-12-21 05:12] LABS: Calcium 8.8 mg/dL (8.4-10.2)
[2017-12-21 05:19] LABS: Hematocrit 26.6 % (30.3-42.9); Mean Corpuscular HGB Conc 30 % (30-34); Mean Corpuscular Volume 83 fl (79-97); Platelet Count 330 K/mm3 (140-440); Red Blood Count 3.21 M/mm3 (3.65-5.03); Red Cell Distribution Width 19.5 % (13.2-15.2)
[2017-12-21 05:22] LABS: Mean Corpuscular Hemoglobin 25 pg (28-32)
[2017-12-21 06:31] LABS: Band Neutrophils # (Manual) 13.6 K/mm3; Basophils % (Manual) 0 % (0.0-1.8); Monocytes % (Manual) 0 % (0.0-7.3); Total Cells Counted 100
[2017-12-21 06:32] LABS: Anisocytosis 1+; Dohle Bodies Few; Hypochromasia Few; Spherocytes Few
--- NOTE | 2017-12-21 07:31 | Progress Note ---
Assessment and Plan Assessment and plan: Patient is a 67-year-old woman who is a halfway resident has [facility] with a plethora of severe comorbidities including advanced dementia with contractures, hypertension, type 2 diabetes mellitus, glaucoma, cataracts, blind, atrial fibrillation, sacral decubitus pressure ulcer , CVA with aphasia/dysphagia status post PEG tube and quadriplegia/bed bound state who presented to [facility] emergency department with worsen AMS, hypernatremia and PEG leakage with possible replacement pCXR reported as limited exam due to position CT abd/pelvis wo contrast IMPRESSION: Gastrostomy tube is within the anterior abdominal wall with extensive changes of inflammation. Due to the presence of air any underlying infection cannot be excluded. Clinical correlation is recommended. Renal U/S reported no acute findings -Acute metabolic encephalopathy: Treat the hypernatremia -Hypernatremia: Treat with hypotonic solution -Hypokalemia: Replace and recheck a.m. -Suspect severe malnutrition: Consult Squeak Rattle And Leak Repairer -Sepsis UTI present on admission: Continue IV antibiotics -Malfunction PEG: GI consulted -ARF, vasomotor nephropathy, poa, Cr was 1.0 on 2016: Consult nephrology, get renal u/s -Sacral pressure ulcer present on admission: Consult and discussed wound care nurse DNR per chart 12/20/17. suspected UTI w/ sepsis, unable to get UA specimen, will start treatment. d/w nursing to straight cath for UA 12/21/2017: Continue IV antibiotics, await urine culture Consulted infectious disease, worsening white blood cell count of 28.9k GI and renal to evaluate History Interval history: Patient was seen and examined. Follow-up on current diagnosis altered mental status still present. Overnight uneventful, no issues reported to me. Patient is nonverbal. Imaging, nursing note, chart, labs and old chart reviewed. Hospitalist Physical - Physical exam Narrative exam: GEN: Chronic debilitated, cachectic, NAD, eyes closed nonverbal HEENT: NCAT, EOMI, PERRL, OP pasty and dry NECK: no adenopathy, no thyromegaly, no JVD CVS/HEART: Regular tachycardia, NORMAL S1S2, pulses present bilaterally CHEST/LUNGS: Symmetrical chest expansion, good air entry bilaterally GI/Abdomen: soft, ND, PEG tube present, good bowel sounds, no guarding or rebound /Bladder: no grimacing with palp EXT/Skin: Atrophic limbs, sacral dressing intact MSK: Contractures 4 Neuro: Doesn't follow commands, breathing normal overall, maintaining her airway Psych: Confused - Constitutional Vitals: Temp Pulse Resp BP Pulse Ox 99.0 F 100 H 18 103/62 100 12/21/17 03:53 12/21/17 03:53 12/21/17 03:53 12/21/17 03:53 12/21/17 03:53 Results - Labs CBC & Chem 7: 12/21/17 04:14 12/21/17 04:14 Labs: Laboratory Last Values WBC 28.9 K/mm3 (4.5-11.0) H 12/21/17 04:14 RBC 3.21 M/mm3 (3.65-5.03) L 12/21/17 04:14 Hgb 8.0 gm/dl (10.1-14.3) L 12/21/17 04:14 Hct 26.6 % (30.3-42.9) L 12/21/17 04:14 MCV 83 fl (79-97) 12/21/17 04:14 MCH 25 pg (28-32) L 12/21/17 04:14 MCHC 30 % (30-34) 12/21/17 04:14 RDW 19.5 % (13.2-15.2) H 12/21/17 04:14 Plt Count 330 K/mm3 (140-440) 12/21/17 04:14 Lymph % (Auto) 13.5 % (13.4-35.0) 12/19/17 22:00 [place] % (Auto) 6.7 % (0.0-7.3) 12/19/17 22:00 Eos % (Auto) 2.3 % (0.0-4.3) 12/19/17 22:00 Baso % (Auto) 0.4 % (0.0-1.8) 12/19/17 22:00 Lymph # 1.6 K/mm3 (1.2-5.4) 12/19/17 22:00 [place] # 0.8 K/mm3 (0.0-0.8) 12/19/17 22:00 Eos # 0.3 K/mm3 (0.0-0.4) 12/19/17 22:00 Baso # 0.0 K/mm3 (0.0-0.1) 12/19/17 22:00 Add Manual Diff Complete 12/21/17 04:14 Total Counted 100 12/21/17 04:14 Seg Neutrophils % Crystallography Teacher 12/21/17 04:14 Seg Neuts % (Manual) 43.0 % (40.0-70.0) 12/21/17 04:14 Band Neutrophils % 47.0 % 12/21/17 04:14 Lymphocytes % (Manual) 6.0 % (13.4-35.0) L 12/21/17 04:14 Reactive Lymphs % (Man) 0 % 12/21/17 04:14 Monocytes % (Manual) 0 % (0.0-7.3) 12/21/17 04:14 Eosinophils % (Manual) 1.0 % (0.0-4.3) 12/21/17 04:14 Basophils % (Manual) 0 % (0.0-1.8) 12/21/17 04:14 Metamyelocytes % 3.0 % 12/21/17 04:14 Myelocytes % 0 % 12/21/17 04:14 Promyelocytes % 0 % 12/21/17 04:14 Blast Cells % 0 % 12/21/17 04:14 Nucleated RBC % Not Reportable 12/21/17 04:14 Seg Neutrophils # 8.9 K/mm3 (1.8-7.7) H 12/19/17 22:00 Seg Neutrophils # Man 12.4 K/mm3 (1.8-7.7) H 12/21/17 04:14 Band Neutrophils # 13.6 K/mm3 12/21/17 04:14 Lymphocytes # (Manual) 1.7 K/mm3 (1.2-5.4) 12/21/17 04:14 Abs React Lymphs (Man) 0.0 K/mm3 12/21/17 04:14 Monocytes # (Manual) 0.0 K/mm3 (0.0-0.8) 12/21/17 04:14 Eosinophils # (Manual) 0.3 K/mm3 (0.0-0.4) 12/21/17 04:14 Basophils # (Manual) 0.0 K/mm3 (0.0-0.1) 12/21/17 04:14 Metamyelocytes # 0.9 K/mm3 12/21/17 04:14 Myelocytes # 0.0 K/mm3 12/21/17 04:14 Promyelocytes # 0.0 K/mm3 12/21/17 04:14 Blast Cells # 0.0 K/mm3 12/21/17 04:14 WBC Morphology Not Reportable 12/21/17 04:14 Hypersegmented Neuts Not Reportable 12/21/17 04:14 Hyposegmented Neuts Not Reportable 12/21/17 04:14 Hypogranular Neuts Not Reportable 12/21/17 04:14 Smudge Cells Not Reportable 12/21/17 04:14 Toxic Granulation Not Reportable 12/21/17 04:14 Toxic Vacuolation Not Reportable 12/21/17 04:14 Dohle Bodies Few 12/21/17 04:14 Pelger-Huet Anomaly Not Reportable 12/21/17 04:14 Stephany Rods Not Reportable 12/21/17 04:14 Platelet Estimate Appears normal 12/21/17 04:14 Clumped Platelets Not Reportable 12/21/17 04:14 Plt Clumps, EDTA Not Reportable 12/21/17 04:14 Large Platelets Not Reportable 12/21/17 04:14 Giant Platelets Not Reportable 12/21/17 04:14 Platelet Satelliting Not Reportable 12/21/17 04:14 Plt Morphology Comment Not Reportable 12/21/17 04:14 RBC Morphology Not Reportable 12/21/17 04:14 Dimorphic RBCs Not Reportable 12/21/17 04:14 Polychromasia Not Reportable 12/21/17 04:14 Hypochromasia Few 12/21/17 04:14 Poikilocytosis Not Reportable 12/21/17 04:14 Anisocytosis 1+ 12/21/17 04:14 Microcytosis Not Reportable 12/21/17 04:14 Macrocytosis Not Reportable 12/21/17 04:14 Spherocytes Few 12/21/17 04:14 Pappenheimer Bodies Not Reportable 12/21/17 04:14 Sickle Cells Not Reportable 12/21/17 04:14 Target Cells Not Reportable 12/21/17 04:14 Tear Drop Cells Not Reportable 12/21/17 04:14 Ovalocytes Not Reportable 12/21/17 04:14 Helmet Cells Not Reportable 12/21/17 04:14 [place] Bodies Not Reportable 12/21/17 04:14 [place] Rings Not Reportable 12/21/17 04:14 [place] Cells Not Reportable 12/21/17 04:14 Bite Cells Not Reportable 12/21/17 04:14 Crenated Cell Not Reportable 12/21/17 04:14 Elliptocytes Not Reportable 12/21/17 04:14 Acanthocytes (Spur) Not Reportable 12/21/17 04:14 Rouleaux Not Reportable 12/21/17 04:14 Hemoglobin C Crystals Not Reportable 12/21/17 04:14 Schistocytes Not Reportable 12/21/17 04:14 Malaria parasites Not Reportable 12/21/17 04:14 [place] Bodies Not Reportable 12/21/17 04:14 Hem Pathologist Commnt No 12/21/17 04:14 PT 16.7 Sec. (12.2-14.9) H 12/19/17 22:00 INR 1.28 (0.87-1.13) H 12/19/17 22:00 APTT 34.3 Sec. (24.2-36.6) 12/19/17 22:00 Sodium 158 mmol/L (137-145) H 12/21/17 04:14 Potassium 3.4 mmol/L (3.6-5.0) L 12/21/17 04:14 Chloride 119.8 mmol/L (98-107) H 12/21/17 04:14 Carbon Dioxide 17 mmol/L (22-30) L 12/21/17 04:14 Anion Gap 25 mmol/L 12/21/17 04:14 BUN 100 mg/dL (7-17) H 12/21/17 04:14 Creatinine 3.9 mg/dL (0.7-1.2) H 12/21/17 04:14 Estimated GFR 14 ml/min 12/21/17 04:14 BUN/Creatinine Ratio 26 % 12/21/17 04:14 Glucose 274 mg/dL (65-100) H 12/21/17 04:14 POC Glucose 216 (70-105) H 12/20/17 23:31 Osmolality 375 Mosm/kg 12/20/17 14:36 Lactic Acid 1.40 mmol/L (0.7-2.0) 12/19/17 22:00 Uric Acid 13.4 mg/dL (3.5-7.6) H 12/20/17 14:36 Calcium 8.8 mg/dL (8.4-10.2) 12/21/17 04:14 Total Bilirubin 0.40 mg/dL (0.1-1.2) 12/19/17 22:00 AST 17 units/L (5-40) 12/19/17 22:00 ALT 17 units/L (7-56) 12/19/17 22:00 Alkaline Phosphatase 111 units/L (35-129) 12/19/17 22:00 Total Creatine Kinase 238 units/L (30-135) H 12/20/17 14:36 Total Protein 8.1 g/dL (6.3-8.2) 12/19/17 22:00 Albumin 2.9 g/dL (3.9-5) L 12/19/17 22:00 Albumin/Globulin Ratio 0.6 % 12/19/17 22:00 Urine Color Yellow (Yellow) 12/20/17 17:00 Urine Turbidity Cloudy (Clear) 12/20/17 17:00 Urine pH 5.0 (5.0-7.0) 12/20/17 17:00 Ur Specific [place] 1.013 (1.003-1.030) 12/20/17 17:00 Urine Protein 100 mg/dl mg/dL (Negative) 12/20/17 17:00 Urine Glucose (UA) Neg mg/dL (Negative) 12/20/17 17:00 Urine Ketones Neg mg/dL (Negative) 12/20/17 17:00 Urine Blood Mod (Negative) 12/20/17 17:00 Urine Nitrite Neg (Negative) 12/20/17 17:00 Urine Bilirubin Neg (Negative) 12/20/17 17:00 Urine Urobilinogen < 2.0 mg/dL (<2.0) 12/20/17 17:00 Ur Leukocyte Esterase Neg (Negative) 12/20/17 17:00 Urine WBC (Auto) 20.0 /HPF (0.0-6.0) H 12/20/17 17:00 Urine RBC (Auto) 15.0 /HPF (0.0-6.0) 12/20/17 17:00 Urine Mucus Few /HPF 12/20/17 17:00 Urine Creatinine 90.2 mg/dL (0.1-20.0) H 12/20/17 17:00 Urine Sodium 46 mmol/L 12/20/17 17:00 Urine Total Protein 91 mg/dL (5-11.8) H 12/20/17 17:00
[2017-12-21] MEDS ORDERED: MORPHINE IV PRN (08:25)
[2017-12-21] MEDS: cefTRIAXone 1 GM in NACL 0.9% 20 ML IV SCH (10:26)
--- NOTE | 2017-12-21 11:31 | Progress Note ---
Assessment and Plan Assessment: * Acute kidney injury secondary to prerenal azotemia --Baseline SCr 1.0mg/dL --Renal u/s: no hydronephrosis * Hypernatremia * AMS * Leukocytosis - blood/urine cx NGTD * Anemia * Atrial fibrillation * CVA * Dementia Plan: * Increase D5W to 100ml/hour * Empiric abx per primary team * Transfuse pRBC per primary team * Strict I/O * Dose medications for renal function * Avoid potential nephrotoxins Subjective Date of service: 12/21/17 Interval history: No acute events overnight. Objective - Vital Signs Vital signs: Vital Signs - 12hr 12/20/17 12/21/17 12/21/17 23:59 00:09 00:13 Temperature Pulse Rate 131 H 128 H 128 H Respiratory Rate Blood Pressure Blood Pressure 100/67 107/63 102/64 [Left] O2 Sat by Pulse 98 97 98 Oximetry 12/21/17 12/21/17 12/21/17 00:28 00:53 03:53 Temperature 99.0 F Pulse Rate 125 H 100 H 100 H Respiratory 18 Rate Blood Pressure 103/62 Blood Pressure 103/59 103/62 [Left] O2 Sat by Pulse 97 100 100 Oximetry 12/21/17 12/21/17 06:53 08:02 Temperature 97.9 F Pulse Rate 90 Respiratory 20 Rate Blood Pressure 92/59 Blood Pressure [Left] O2 Sat by Pulse 99 100 Oximetry - General Appearance General appearance: other (somonolent, et) EENT: ATNC Respiratory: Present: Decreased Breath Sounds Cardiology: regular, S1S2 Gastrointestinal: no tenderness, no distended Integumentary: warm and dry Neurologic: other (unresponsive) Musculoskeletal: other (no edema) - Lab 12/21/17 04:14 12/21/17 04:14 Most recent lab results Calcium 8.8 mg/dL (8.4-10.2) 12/21/17 04:14 Urine Creatinine 90.2 mg/dL (0.1-20.0) H 12/20/17 17:00 Urine Sodium 46 mmol/L 12/20/17 17:00 Urine Total Protein 91 mg/dL (5-11.8) H 12/20/17 17:00
--- NOTE | 2017-12-21 12:03 | Gastroenterology Consultation ---
History of Present Illness - Reason for Consult Consult date: 12/21/17 PEG tube malfunction Requesting physician: BOLIVAR HOLLINGSWORTH - History of Present Illness Ms Andre is a 67 yo aaf who presents from detention with AMS. History gathered primarily from chart review and discussion with pt's sister over phone. She has reportedly had leakage from peg tube site for a couple weeks, and was unable to be flushed following admission. She has had continued drainage around peg tube site. Per pt's sister, she had peg tube exchange done August of last year at [facility]. Pt with worsening sepsis, and CT findings concerning for abdominal infection. Medications and Allergies Allergies Allergy/AdvReac Type Severity Reaction Status Date / Time codeine Allergy Unknown Verified 09/26/17 12:32 Home Medications Medication Instructions Recorded Confirmed Last Taken Type Acetaminophen [Tylenol Extra 500 mg FEEDTUBE BID 09/26/17 12/20/17 Unknown History Strength] Amlodipine Besylate [Norvasc] 10 mg FEEDTUBE DAILY 09/26/17 12/20/17 Unknown History Ascorbic Acid [Vitamin C] 250 mg FEEDTUBE BID 09/26/17 12/20/17 Unknown History Aspirin [Aspirin TAB] 325 mg FEEDTUBE QDAY 09/26/17 12/20/17 Unknown History Ferrous Sulfate [Iron] 325 mg FEEDTUBE DAILY 09/26/17 12/20/17 Unknown History Insulin Lispro [Humalog 100 0 units SQ AC 09/26/17 12/20/17 Unknown History UNITS/ML Kwikpen] Metformin HCl [Glucophage] 500 mg FEEDTUBE DAILY 09/26/17 12/20/17 Unknown History Multivitamin Tab W-MINERAL 1 each FEEDTUBE QD 09/26/17 12/20/17 Unknown History [Multiple Vitamin/Mineral (Theragran M)] [place]-3 Fatty Acids/Fish Oil [Fish 1 each FEEDTUBE TID 09/26/17 12/20/17 Unknown History Oil 1,000 mg Softgel] Simvastatin [Zocor TAB] 60 mg FEEDTUBE QHS 09/26/17 12/20/17 Unknown History Brimonidine Tartrate [Alphagan P 1 drop OU BID 12/20/17 12/20/17 Unknown History 0.1%] Potassium Chloride 20 meq FEEDTUBE 2XW 12/20/17 12/20/17 Unknown History Sodium Bicarbonate 650 mg FEEDTUBE Q7D 12/20/17 12/20/17 Unknown History traMADol [Ultram 50 MG tab] 50 mg FEEDTUBE Q6HR PRN 12/20/17 12/20/17 Unknown History Active Meds: Active Medications Acetaminophen (Tylenol) 650 mg PO Q4H PRN PRN Reason: Pain MILD(1-3)/Fever >100.5/CARRILLO Lipase/Protease/Amylase ([address] Dr 10,500 Unit) 1 each FEEDTUBE PRN PRN PRN Reason: For Clogged Feeding Tube Brimonidine Tartrate (Alphagan P 0.15%) 1 drops OU BID FABIOLA Last Admin: 12/21/17 10:27 Dose: 1 drops Dextrose (D50w (25gm) Syringe) 50 ml IV PRN PRN PRN Reason: Hypoglycemia Potassium Chloride 20 meq/ (Dextrose) 1,010 mls @ 75 mls/hr IV DIRECT FABIOLA Last Admin: 12/21/17 00:06 Dose: 75 mls/hr Ceftriaxone Sodium 1 gm/ (Sodium Chloride) 20 mls @ 20 mls/10 min IV Q24HR FABIOLA ; Protocol Last Admin: 12/21/17 10:26 Dose: 20 mls/10 min Levofloxacin/Dextrose (Levaquin 250mg/50ml) 250 mg in 50 mls @ 50 mls/hr IV Q48H FABIOLA; Protocol Last Admin: 12/20/17 18:24 Dose: 50 mls/hr Insulin Aspart (Novolog) 0 units SUB-Q Q6HR FABIOLA; Protocol Last Admin: 12/21/17 06:12 Dose: 3 units Metoclopramide HCl (Reglan) 5 mg IV Q8H PRN PRN Reason: Nausea And Vomiting Morphine Sulfate (Morphine) 1 mg IV Q4H PRN PRN Reason: Pain , Severe (7-10) Last Admin: 12/21/17 09:12 Dose: 1 mg Simple Syrup (Simple Syrup) 15 ml FEEDTUBE PRN PRN PRN Reason: Hypoglycemia Simple Syrup (Simple Syrup) 30 ml FEEDTUBE PRN PRN PRN Reason: Hypoglycemia Sodium Bicarbonate (Sodium Bicarbonate) 325 mg FEEDTUBE PRN PRN PRN Reason: For Clogged Feeding Tube Review of Systems - Review of Systems ROS unobtainable: due to mental status Exam - Exam Narrative Exam: Gen: somnolent, NAD, non-verbal Head: nc/at Eyes: anicteric Mouth: dry mucous membranes CV: tachycardic, s1 and s2 Lungs: CTAB, non labored Abd: + peg tube site with purulent appearing drainage, erythematous and firm around g tube Ext: no c/c/e Neuro: oriented x 0 - Constitutional Vital Signs: Temp Pulse Resp BP Pulse Ox 97.9 F 90 20 92/59 100 12/21/17 06:53 12/21/17 06:53 12/21/17 06:53 12/21/17 06:53 12/21/17 08:02 - Labs CBC & Chem 7: 12/21/17 04:14 12/21/17 04:14 Lab Results: Laboratory Results - last 24 hr 12/20/17 12/20/17 12/20/17 14:35 14:36 14:36 WBC RBC Hgb Hct MCV MCH MCHC RDW Plt Count Add Manual Diff Total Counted Seg Neutrophils % Seg Neuts % (Manual) Band Neutrophils % Lymphocytes % (Manual) Reactive Lymphs % (Man) Monocytes % (Manual) Eosinophils % (Manual) Basophils % (Manual) Metamyelocytes % Myelocytes % Promyelocytes % Blast Cells % Nucleated RBC % Seg Neutrophils # Man Band Neutrophils # Lymphocytes # (Manual) Abs React Lymphs (Man) Monocytes # (Manual) Eosinophils # (Manual) Basophils # (Manual) Metamyelocytes # Myelocytes # Promyelocytes # Blast Cells # WBC Morphology Hypersegmented Neuts Hyposegmented Neuts Hypogranular Neuts Smudge Cells Toxic Granulation Toxic Vacuolation Dohle Bodies Pelger-Huet Anomaly Stephany Rods Platelet Estimate Clumped Platelets Plt Clumps, EDTA Large Platelets Giant Platelets Platelet Satelliting Plt Morphology Comment RBC Morphology Dimorphic RBCs Polychromasia Hypochromasia Poikilocytosis Anisocytosis Microcytosis Macrocytosis Spherocytes Pappenheimer Bodies Sickle Cells Target Cells Tear Drop Cells Ovalocytes Helmet Cells Gallego-Hood Bodies [place] Rings Maurice Cells Bite Cells Crenated Cell Elliptocytes Acanthocytes (Spur) Rouleaux Hemoglobin C Crystals Schistocytes Malaria parasites Laron Bodies Hem Pathologist Commnt Sodium Potassium Chloride Carbon Dioxide Anion Gap BUN Creatinine Estimated GFR BUN/Creatinine Ratio Glucose POC Glucose 210 H Osmolality 375 Uric Acid 13.4 H Calcium Total Creatine Kinase 238 H Urine Color Urine Turbidity Urine pH Ur Specific [place] Urine Protein Urine Glucose (UA) Urine Ketones Urine Blood Urine Nitrite Urine Bilirubin Urine Urobilinogen Ur Leukocyte Esterase Urine WBC (Auto) Urine RBC (Auto) Urine Mucus Urine Creatinine Urine Sodium Urine Total Protein 12/20/17 12/20/17 12/20/17 17:00 17:00 18:26 WBC RBC Hgb Hct MCV MCH MCHC RDW Plt Count Add Manual Diff Total Counted Seg Neutrophils % Seg Neuts % (Manual) Band Neutrophils % Lymphocytes % (Manual) Reactive Lymphs % (Man) Monocytes % (Manual) Eosinophils % (Manual) Basophils % (Manual) Metamyelocytes % Myelocytes % Promyelocytes % Blast Cells % Nucleated RBC % Seg Neutrophils # Man Band Neutrophils # Lymphocytes # (Manual) Abs React Lymphs (Man) Monocytes # (Manual) Eosinophils # (Manual) Basophils # (Manual) Metamyelocytes # Myelocytes # Promyelocytes # Blast Cells # WBC Morphology Hypersegmented Neuts Hyposegmented Neuts Hypogranular Neuts Smudge Cells Toxic Granulation Toxic Vacuolation Dohle Bodies Pelger-Huet Anomaly Stephany Rods Platelet Estimate Clumped Platelets Plt Clumps, EDTA Large Platelets Giant Platelets Platelet Satelliting Plt Morphology Comment RBC Morphology Dimorphic RBCs Polychromasia Hypochromasia Poikilocytosis Anisocytosis Microcytosis Macrocytosis Spherocytes Pappenheimer Bodies Sickle Cells Target Cells Tear Drop Cells Ovalocytes Helmet Cells Gallego-Hood Bodies [place] Rings Maurice Cells Bite Cells Crenated Cell Elliptocytes Acanthocytes (Spur) Rouleaux Hemoglobin C Crystals Schistocytes Malaria parasites Laron Bodies Hem Pathologist Commnt Sodium Potassium Chloride Carbon Dioxide Anion Gap BUN Creatinine Estimated GFR BUN/Creatinine Ratio Glucose POC Glucose 201 H Osmolality Uric Acid Calcium Total Creatine Kinase Urine Color Yellow Urine Turbidity Cloudy Urine pH 5.0 Ur Specific [place] 1.013 Urine Protein 100 mg/dl Urine Glucose (UA) Neg Urine Ketones Neg Urine Blood Mod Urine Nitrite Neg Urine Bilirubin Neg Urine Urobilinogen < 2.0 Ur Leukocyte Esterase Neg Urine WBC (Auto) 20.0 H Urine RBC (Auto) 15.0 Urine Mucus Few Urine Creatinine 90.2 H Urine Sodium 46 Urine Total Protein 91 H 12/20/17 12/21/17 12/21/17 23:31 04:14 04:14 WBC 28.9 H RBC 3.21 L Hgb 8.0 L Hct 26.6 L MCV 83 MCH 25 L MCHC 30 RDW 19.5 H Plt Count 330 Add Manual Diff Complete Total Counted 100 Seg Neutrophils % Ticker Installer Seg Neuts % (Manual) 43.0 Band Neutrophils % 47.0 Lymphocytes % (Manual) 6.0 L Reactive Lymphs % (Man) 0 Monocytes % (Manual) 0 Eosinophils % (Manual) 1.0 Basophils % (Manual) 0 Metamyelocytes % 3.0 Myelocytes % 0 Promyelocytes % 0 Blast Cells % 0 Nucleated RBC % Not Reportable Seg Neutrophils # Man 12.4 H Band Neutrophils # 13.6 Lymphocytes # (Manual) 1.7 Abs React Lymphs (Man) 0.0 Monocytes # (Manual) 0.0 Eosinophils # (Manual) 0.3 Basophils # (Manual) 0.0 Metamyelocytes # 0.9 Myelocytes # 0.0 Promyelocytes # 0.0 Blast Cells # 0.0 WBC Morphology Not Reportable Hypersegmented Neuts Not Reportable Hyposegmented Neuts Not Reportable Hypogranular Neuts Not Reportable Smudge Cells Not Reportable Toxic Granulation Not Reportable Toxic Vacuolation Not Reportable Dohle Bodies Few Pelger-Huet Anomaly Not Reportable Stephany Rods Not Reportable Platelet Estimate Appears normal Clumped Platelets Not Reportable Plt Clumps, EDTA Not Reportable Large Platelets Not Reportable Giant Platelets Not Reportable Platelet Satelliting Not Reportable Plt Morphology Comment Not Reportable RBC Morphology Not Reportable Dimorphic RBCs Not Reportable Polychromasia Not Reportable Hypochromasia Few Poikilocytosis Not Reportable Anisocytosis 1+ Microcytosis Not Reportable Macrocytosis Not Reportable Spherocytes Few Pappenheimer Bodies Not Reportable Sickle Cells Not Reportable Target Cells Not Reportable Tear Drop Cells Not Reportable Ovalocytes Not Reportable Helmet Cells Not Reportable Gallego-Hood Bodies Not Reportable [place] Rings Not Reportable Deane Cells Not Reportable Bite Cells Not Reportable Crenated Cell Not Reportable Elliptocytes Not Reportable Acanthocytes (Spur) Not Reportable Rouleaux Not Reportable Hemoglobin C Crystals Not Reportable Schistocytes Not Reportable Malaria parasites Not Reportable Laron Bodies Not Reportable Hem Pathologist Commnt No Sodium 158 H Potassium 3.4 L Chloride 119.8 H Carbon Dioxide 17 L Anion Gap 25 BUN 100 H Creatinine 3.9 H Estimated GFR 14 BUN/Creatinine Ratio 26 Glucose 274 H POC Glucose 216 H Osmolality Uric Acid Calcium 8.8 Total Creatine Kinase Urine Color Urine Turbidity Urine pH Ur Specific [place] Urine Protein Urine Glucose (UA) Urine Ketones Urine Blood Urine Nitrite Urine Bilirubin Urine Urobilinogen Ur Leukocyte Esterase Urine WBC (Auto) Urine RBC (Auto) Urine Mucus Urine Creatinine Urine Sodium Urine Total Protein 12/21/17 11:42 WBC RBC Hgb Hct MCV MCH MCHC RDW Plt Count Add Manual Diff Total Counted Seg Neutrophils % Seg Neuts % (Manual) Band Neutrophils % Lymphocytes % (Manual) Reactive Lymphs % (Man) Monocytes % (Manual) Eosinophils % (Manual) Basophils % (Manual) Metamyelocytes % Myelocytes % Promyelocytes % Blast Cells % Nucleated RBC % Seg Neutrophils # Man Band Neutrophils # Lymphocytes # (Manual) Abs React Lymphs (Man) Monocytes # (Manual) Eosinophils # (Manual) Basophils # (Manual) Metamyelocytes # Myelocytes # Promyelocytes # Blast Cells # WBC Morphology Hypersegmented Neuts Hyposegmented Neuts Hypogranular Neuts Smudge Cells Toxic Granulation Toxic Vacuolation Dohle Bodies Pelger-Huet Anomaly Stephany Rods Platelet Estimate Clumped Platelets Plt Clumps, EDTA Large Platelets Giant Platelets Platelet Satelliting Plt Morphology Comment RBC Morphology Dimorphic RBCs Polychromasia Hypochromasia Poikilocytosis Anisocytosis Microcytosis Macrocytosis Spherocytes Pappenheimer Bodies Sickle Cells Target Cells Tear Drop Cells Ovalocytes Helmet Cells Gallego-Hood Bodies [place] Rings Maurice Cells Bite Cells Crenated Cell Elliptocytes Acanthocytes (Spur) Rouleaux Hemoglobin C Crystals Schistocytes Malaria parasites Laron Bodies Hem Pathologist Commnt Sodium Potassium Chloride Carbon Dioxide Anion Gap BUN Creatinine Estimated GFR BUN/Creatinine Ratio Glucose POC Glucose 184 H Osmolality Uric Acid Calcium Total Creatine Kinase Urine Color Urine Turbidity Urine pH Ur Specific [place] Urine Protein Urine Glucose (UA) Urine Ketones Urine Blood Urine Nitrite Urine Bilirubin Urine Urobilinogen Ur Leukocyte Esterase Urine WBC (Auto) Urine RBC (Auto) Urine Mucus Urine Creatinine Urine Sodium Urine Total Protein - Imaging CT Scan: report reviewed Assessment and Plan 1. Peg tube malfunction/leakage 2. Sepsis -concern for possible infectious complication involving peg tube given and ct results. further management per ID and surgery.
[2017-12-21] MEDS: KCL 20 MEQ in D5W 1,000 ML IV SCH (14:55)
--- NOTE | 2017-12-21 15:53 | Consultation ---
History of Present Illness - Reason for Consult Consult date: 12/21/17 sepsis UTI Requesting physician: BOLIVAR COLLINS - History of Present Illness 67 years old female with history of dementia, CVA with disphagia s/p PEG, hypertension, A. fib, brought from [facility] due to worsening AMS for 48 hours associated with hypernatremia. Patient is unable to provide a history. History is obtained from review of records. MI also reporting her PEG tube has been leaking for several weeks. In the ED, initial temperature 98.5, heart rate 90, respiration 29, blood pressure 122/78. Initial white count 11 which then went to 28.9. Hemoglobin 9.6. Platelets 358. Creat 3.6. Sodium 157. Abdominal CT showed extensive inflammatory changes and SQ air in the RUQ abdominal wall. UA leukocyte esterase neg and 20 white blood cells. CXR presumed LLL infiltrate. Microbiology: Blood cultures: 12/19 neg Urine cultures: 12/19 neg Current Antimicrobials: Levaquin 12/19 Previous Antimicrobials: Past History Past Medical History: other (as per HPI) Medications and Allergies Allergies Allergy/AdvReac Type Severity Reaction Status Date / Time codeine Allergy Unknown Verified 09/26/17 12:32 Home Medications Medication Instructions Recorded Confirmed Last Taken Type Acetaminophen [Tylenol Extra 500 mg FEEDTUBE BID 09/26/17 12/20/17 Unknown History Strength] Amlodipine Besylate [Norvasc] 10 mg FEEDTUBE DAILY 09/26/17 12/20/17 Unknown History Ascorbic Acid [Vitamin C] 250 mg FEEDTUBE BID 09/26/17 12/20/17 Unknown History Aspirin [Aspirin TAB] 325 mg FEEDTUBE QDAY 09/26/17 12/20/17 Unknown History Ferrous Sulfate [Iron] 325 mg FEEDTUBE DAILY 09/26/17 12/20/17 Unknown History Insulin Lispro [Humalog 100 0 units SQ AC 09/26/17 12/20/17 Unknown History UNITS/ML Kwikpen] Metformin HCl [Glucophage] 500 mg FEEDTUBE DAILY 09/26/17 12/20/17 Unknown History Multivitamin Tab W-MINERAL 1 each FEEDTUBE QD 09/26/17 12/20/17 Unknown History [Multiple Vitamin/Mineral (Theragran M)] [place]-3 Fatty Acids/Fish Oil [Fish 1 each FEEDTUBE TID 09/26/17 12/20/17 Unknown History Oil 1,000 mg Softgel] Simvastatin [Zocor TAB] 60 mg FEEDTUBE QHS 09/26/17 12/20/17 Unknown History Brimonidine Tartrate [Alphagan P 1 drop OU BID 12/20/17 12/20/17 Unknown History 0.1%] Potassium Chloride 20 meq FEEDTUBE 2XW 12/20/17 12/20/17 Unknown History Sodium Bicarbonate 650 mg FEEDTUBE Q7D 12/20/17 12/20/17 Unknown History traMADol [Ultram 50 MG tab] 50 mg FEEDTUBE Q6HR PRN 12/20/17 12/20/17 Unknown History Active Meds: Active Medications Acetaminophen (Tylenol) 650 mg PO Q4H PRN PRN Reason: Pain MILD(1-3)/Fever >100.5/CARRILLO Lipase/Protease/Amylase ([address] Dr 10,500 Unit) 1 each FEEDTUBE PRN PRN PRN Reason: For Clogged Feeding Tube Brimonidine Tartrate (Alphagan P 0.15%) 1 drops OU BID FABIOLA Last Admin: 12/21/17 10:27 Dose: 1 drops Dextrose (D50w (25gm) Syringe) 50 ml IV PRN PRN PRN Reason: Hypoglycemia Ceftriaxone Sodium 1 gm/ (Sodium Chloride) 20 mls @ 20 mls/10 min IV Q24HR FABIOLA ; Protocol Last Admin: 12/21/17 10:26 Dose: 20 mls/10 min Levofloxacin/Dextrose (Levaquin 250mg/50ml) 250 mg in 50 mls @ 50 mls/hr IV Q48H FABIOLA; Protocol Last Admin: 12/20/17 18:24 Dose: 50 mls/hr Potassium Chloride 20 meq/ (Dextrose) 1,010 mls @ 100 mls/hr IV DIRECT FABIOLA Last Admin: 12/21/17 14:55 Dose: 100 mls/hr Insulin Aspart (Novolog) 0 units SUB-Q Q6HR FABIOLA; Protocol Last Admin: 12/21/17 12:09 Dose: 1 units Metoclopramide HCl (Reglan) 5 mg IV Q8H PRN PRN Reason: Nausea And Vomiting Morphine Sulfate (Morphine) 1 mg IV Q4H PRN PRN Reason: Pain , Severe (7-10) Last Admin: 12/21/17 09:12 Dose: 1 mg Simple Syrup (Simple Syrup) 15 ml FEEDTUBE PRN PRN PRN Reason: Hypoglycemia Simple Syrup (Simple Syrup) 30 ml FEEDTUBE PRN PRN PRN Reason: Hypoglycemia Sodium Bicarbonate (Sodium Bicarbonate) 325 mg FEEDTUBE PRN PRN PRN Reason: For Clogged Feeding Tube Physical Examination - Physical Exam Narrative exam: General appearance: somnolent in NAD, non conversant Eyes: anicteric sclerae, moist conjunctivae; no lid-lag; PERRLA HENT: Atraumatic; oropharynx limited Neck: Trachea midline; supple, no thyromegaly or lymphadenopathy Lungs: scattered jesus crackles CV: tachy Abdomen: Soft, +RUQ PEG with marked surrounding edema erythema and leaking ?? purulence Extremities: jesus contracted Skin: Normal temperature, turgor and texture; no rash, ulcers or subcutaneous nodules Psych: non verbal. Neuro: non verbal contracted leg Lines: - Constitutional Vitals: Vital Signs Temp Pulse Resp BP Pulse Ox 97.9 F 90 20 92/59 100 12/21/17 06:53 12/21/17 06:53 12/21/17 06:53 12/21/17 06:53 12/21/17 08:02 Temperature -Last 24 Hours Temperature 97.9 F Temperature 99.0 F Temperature 97.3 F Results - Labs CBC & Chem 7: 12/21/17 04:14 12/21/17 04:14 Labs: Abnormal lab results 12/20/17 12/20/17 12/20/17 Range/Units 17:00 17:00 18:26 WBC (4.5-11.0) K/mm3 RBC (3.65-5.03) M/mm3 Hgb (10.1-14.3) gm/dl Hct (30.3-42.9) % MCH (28-32) pg RDW (13.2-15.2) % Lymphocytes % (Manual) (13.4-35.0) % Seg Neutrophils # Man (1.8-7.7) K/mm3 Sodium (137-145) mmol/L Potassium (3.6-5.0) mmol/L Chloride (98-107) mmol/L Carbon Dioxide (22-30) mmol/L BUN (7-17) mg/dL Creatinine (0.7-1.2) mg/dL Glucose (65-100) mg/dL POC Glucose 201 H (70-105) Urine WBC (Auto) 20.0 H (0.0-6.0) /HPF Urine Creatinine 90.2 H (0.1-20.0) mg/dL Urine Total Protein 91 H (5-11.8) mg/dL 12/20/17 12/21/17 12/21/17 Range/Units 23:31 04:14 04:14 WBC 28.9 H (4.5-11.0) K/mm3 RBC 3.21 L (3.65-5.03) M/mm3 Hgb 8.0 L (10.1-14.3) gm/dl Hct 26.6 L (30.3-42.9) % MCH 25 L (28-32) pg RDW 19.5 H (13.2-15.2) % Lymphocytes % (Manual) 6.0 L (13.4-35.0) % Seg Neutrophils # Man 12.4 H (1.8-7.7) K/mm3 Sodium 158 H (137-145) mmol/L Potassium 3.4 L (3.6-5.0) mmol/L Chloride 119.8 H (98-107) mmol/L Carbon Dioxide 17 L (22-30) mmol/L BUN 100 H (7-17) mg/dL Creatinine 3.9 H (0.7-1.2) mg/dL Glucose 274 H (65-100) mg/dL POC Glucose 216 H (70-105) Urine WBC (Auto) (0.0-6.0) /HPF Urine Creatinine (0.1-20.0) mg/dL Urine Total Protein (5-11.8) mg/dL 12/21/17 Range/Units 11:42 WBC (4.5-11.0) K/mm3 RBC (3.65-5.03) M/mm3 Hgb (10.1-14.3) gm/dl Hct (30.3-42.9) % MCH (28-32) pg RDW (13.2-15.2) % Lymphocytes % (Manual) (13.4-35.0) % Seg Neutrophils # Man (1.8-7.7) K/mm3 Sodium (137-145) mmol/L Potassium (3.6-5.0) mmol/L Chloride (98-107) mmol/L Carbon Dioxide (22-30) mmol/L BUN (7-17) mg/dL Creatinine (0.7-1.2) mg/dL Glucose (65-100) mg/dL POC Glucose 184 H (70-105) Urine WBC (Auto) (0.0-6.0) /HPF Urine Creatinine (0.1-20.0) mg/dL Urine Total Protein (5-11.8) mg/dL Assessment and Plan Assessment: 1) Sepsis: Present on admission, manifested by tachycardia, leukocytosis. Etiology most likely complicated PEG site soft tissue infection +/- preseumed pneumonia 2) Complicated PEG site RUQ soft tissue infection: Cellulitis / Abscess versus Necrotizing fascitis -Abdominal CT showed extensive inflammatory changes and SQ air in the RUQ abdominal wall. 3) Encephalopathy: from sepsis / hypernatremia 4) HOA 5) Dementia 6) CVA with disphagia s/p PEG, UA leukocyte esterase neg and 20 white blood cells. 7) Presumed pneumonia: CXR presumed LLL infiltrate. 8) HOA-worsening 9) Hypernatremia Plan: -urgent surgical consult in view of ? necrotizing infection-discussed with Dr Collins -PEG site wound culture -start zosyn and linezolid (avoid vanco due to HOA) -follow-up blood cultures -obtain C-reactive protein (CRP) -contact isolation until MRSA is r/o -stop levaquin I am rounding tomorrow Thank you for your consultation, will follow up with you. Malaika Vang MD Infectious Diseases Specialist [facility] ([facility] [phone] O [phone]
[2017-12-21] MEDS ORDERED: ZOSYN/NS 4.5GM/100ML 4.5 GM/100 ML VIAL IV SCH (17:00)
[2017-12-21] MEDS ORDERED: NACL 0.9% 500 ML 500 ML IV ONE (17:02)
--- NOTE | 2017-12-21 17:51 | Consultation ---
History of Present Illness Consult date: 12/21/17 Reason for consult: other (Possible abdominal wall infection) Requesting physician: BOLIVAR HOLLINGSWORTH Chief complaint: Patient unable to communicate - History of present illness History of present illness: This is an unfortunate 67-year-old female who is a correction resident. She was admitted with altered mental status a couple days ago. From talking to the sister and from the medical records, it appears as though there had been difficulties with the peg tube for at least a couple of weeks. During this admission, workup revealed inflammatory changes and subcutaneous air on CT scan. General surgery was consulted for evaluation and treatment. Patient is unable to give any history. She is minimally responsive. Past History Past Medical History: atrial fib, diabetes, hypertension, renal failure, other ( dementia) Past Surgical History: Other (unknown) Social history: denies: smoking, alcohol abuse Family history: no significant family history Medications and Allergies Allergies Allergy/AdvReac Type Severity Reaction Status Date / Time codeine Allergy Unknown Verified 09/26/17 12:32 Home Medications Medication Instructions Recorded Confirmed Last Taken Type Acetaminophen [Tylenol Extra 500 mg FEEDTUBE BID 09/26/17 12/20/17 Unknown History Strength] Amlodipine Besylate [Norvasc] 10 mg FEEDTUBE DAILY 09/26/17 12/20/17 Unknown History Ascorbic Acid [Vitamin C] 250 mg FEEDTUBE BID 09/26/17 12/20/17 Unknown History Aspirin [Aspirin TAB] 325 mg FEEDTUBE QDAY 09/26/17 12/20/17 Unknown History Ferrous Sulfate [Iron] 325 mg FEEDTUBE DAILY 09/26/17 12/20/17 Unknown History Insulin Lispro [Humalog 100 0 units SQ AC 09/26/17 12/20/17 Unknown History UNITS/ML Kwikpen] Metformin HCl [Glucophage] 500 mg FEEDTUBE DAILY 09/26/17 12/20/17 Unknown History Multivitamin Tab W-MINERAL 1 each FEEDTUBE QD 09/26/17 12/20/17 Unknown History [Multiple Vitamin/Mineral (Theragran M)] [place]-3 Fatty Acids/Fish Oil [Fish 1 each FEEDTUBE TID 09/26/17 12/20/17 Unknown History Oil 1,000 mg Softgel] Simvastatin [Zocor TAB] 60 mg FEEDTUBE QHS 09/26/17 12/20/17 Unknown History Brimonidine Tartrate [Alphagan P 1 drop OU BID 12/20/17 12/20/17 Unknown History 0.1%] Potassium Chloride 20 meq FEEDTUBE 2XW 12/20/17 12/20/17 Unknown History Sodium Bicarbonate 650 mg FEEDTUBE Q7D 12/20/17 12/20/17 Unknown History traMADol [Ultram 50 MG tab] 50 mg FEEDTUBE Q6HR PRN 12/20/17 12/20/17 Unknown History Active Meds: Active Medications Acetaminophen (Tylenol) 650 mg PO Q4H PRN PRN Reason: Pain MILD(1-3)/Fever >100.5/CARRILLO Lipase/Protease/Amylase (Pancreaze Dr 10,500 Unit) 1 each FEEDTUBE PRN PRN PRN Reason: For Clogged Feeding Tube Brimonidine Tartrate (Alphagan P 0.15%) 1 drops OU BID FABIOLA Last Admin: 12/21/17 10:27 Dose: 1 drops Dextrose (D50w (25gm) Syringe) 50 ml IV PRN PRN PRN Reason: Hypoglycemia Potassium Chloride 20 meq/ (Dextrose) 1,010 mls @ 100 mls/hr IV DIRECT FABIOLA Last Admin: 12/21/17 14:55 Dose: 100 mls/hr Linezolid (Zyvox 600mg/300ml) 600 mg in 300 mls @ 300 mls/hr IV Q12H FABIOLA; Protocol Piperacillin Sod/Tazobactam Sod (Zosyn/Ns 2.25 Gm/50ml) 2.25 gm in 50 mls @ 100 mls/hr IV Q8H FABIOLA; Protocol Insulin Aspart (Novolog) 0 units SUB-Q Q6HR FABIOLA; Protocol Last Admin: 12/21/17 12:09 Dose: 1 units Metoclopramide HCl (Reglan) 5 mg IV Q8H PRN PRN Reason: Nausea And Vomiting Morphine Sulfate (Morphine) 1 mg IV Q4H PRN PRN Reason: Pain , Severe (7-10) Last Admin: 12/21/17 09:12 Dose: 1 mg Simple Syrup (Simple Syrup) 15 ml FEEDTUBE PRN PRN PRN Reason: Hypoglycemia Simple Syrup (Simple Syrup) 30 ml FEEDTUBE PRN PRN PRN Reason: Hypoglycemia Sodium Bicarbonate (Sodium Bicarbonate) 325 mg FEEDTUBE PRN PRN PRN Reason: For Clogged Feeding Tube Review of Systems ROS unobtainable: due to mental status Exam Vital Signs Pulse Resp Pulse Ox 90 29 H 98 12/19/17 21:30 12/19/17 21:30 12/19/17 21:30 - General physical appearance Positive: well developed, well nourished, no distress, obese, other (does not respond to voice commands.) - Respiratory Positive: normal expansion, normal respiratory effort (oxygen facemask is currently in place) - Abdomen Abdomen: Present: soft, other (patient is obese. Peg tube is in place however there is brownish drainage coming from around it. The area of the abdominal wall lateral to the peg tube is warm to the touch. No erythema seen. No induration is appreciated. There appears to be another small area that may be beginning to drain some underlying fluid. The rest of the abdomen shows no signs of any infection.). Absent: surgical scars Results - Labs 12/21/17 04:14 12/21/17 04:14 Abnormal lab results 12/20/17 12/20/17 12/20/17 Range/Units 17:00 17:00 18:26 WBC (4.5-11.0) K/mm3 RBC (3.65-5.03) M/mm3 Hgb (10.1-14.3) gm/dl Hct (30.3-42.9) % MCH (28-32) pg RDW (13.2-15.2) % Lymphocytes % (Manual) (13.4-35.0) % Seg Neutrophils # Man (1.8-7.7) K/mm3 Sodium (137-145) mmol/L Potassium (3.6-5.0) mmol/L Chloride (98-107) mmol/L Carbon Dioxide (22-30) mmol/L BUN (7-17) mg/dL Creatinine (0.7-1.2) mg/dL Glucose (65-100) mg/dL POC Glucose 201 H (70-105) C-Reactive Protein (0.00-1.30) mg/dL Urine WBC (Auto) 20.0 H (0.0-6.0) /HPF Urine Creatinine 90.2 H (0.1-20.0) mg/dL Urine Total Protein 91 H (5-11.8) mg/dL 12/20/17 12/21/17 12/21/17 Range/Units 23:31 04:14 04:14 WBC 28.9 H (4.5-11.0) K/mm3 RBC 3.21 L (3.65-5.03) M/mm3 Hgb 8.0 L (10.1-14.3) gm/dl Hct 26.6 L (30.3-42.9) % MCH 25 L (28-32) pg RDW 19.5 H (13.2-15.2) % Lymphocytes % (Manual) 6.0 L (13.4-35.0) % Seg Neutrophils # Man 12.4 H (1.8-7.7) K/mm3 Sodium 158 H (137-145) mmol/L Potassium 3.4 L (3.6-5.0) mmol/L Chloride 119.8 H (98-107) mmol/L Carbon Dioxide 17 L (22-30) mmol/L BUN 100 H (7-17) mg/dL Creatinine 3.9 H (0.7-1.2) mg/dL Glucose 274 H (65-100) mg/dL POC Glucose 216 H (70-105) C-Reactive Protein (0.00-1.30) mg/dL Urine WBC (Auto) (0.0-6.0) /HPF Urine Creatinine (0.1-20.0) mg/dL Urine Total Protein (5-11.8) mg/dL 12/21/17 12/21/17 12/21/17 Range/Units 11:42 17:45 Unknown WBC (4.5-11.0) K/mm3 RBC (3.65-5.03) M/mm3 Hgb (10.1-14.3) gm/dl Hct (30.3-42.9) % MCH (28-32) pg RDW (13.2-15.2) % Lymphocytes % (Manual) (13.4-35.0) % Seg Neutrophils # Man (1.8-7.7) K/mm3 Sodium (137-145) mmol/L Potassium (3.6-5.0) mmol/L Chloride (98-107) mmol/L Carbon Dioxide (22-30) mmol/L BUN (7-17) mg/dL Creatinine (0.7-1.2) mg/dL Glucose (65-100) mg/dL POC Glucose 184 H 179 H (70-105) C-Reactive Protein 37.50 H (0.00-1.30) mg/dL Urine WBC (Auto) (0.0-6.0) /HPF Urine Creatinine (0.1-20.0) mg/dL Urine Total Protein (5-11.8) mg/dL Diabetes panel 12/21/17 Range/Units 04:14 Sodium 158 H (137-145) mmol/L Potassium 3.4 L (3.6-5.0) mmol/L Chloride 119.8 H (98-107) mmol/L Carbon Dioxide 17 L (22-30) mmol/L BUN 100 H (7-17) mg/dL Creatinine 3.9 H (0.7-1.2) mg/dL Glucose 274 H (65-100) mg/dL Calcium 8.8 (8.4-10.2) mg/dL Calcium panel 12/21/17 Range/Units 04:14 Calcium 8.8 (8.4-10.2) mg/dL Pituitary panel 12/21/17 Range/Units 04:14 Sodium 158 H (137-145) mmol/L Potassium 3.4 L (3.6-5.0) mmol/L Chloride 119.8 H (98-107) mmol/L Carbon Dioxide 17 L (22-30) mmol/L BUN 100 H (7-17) mg/dL Creatinine 3.9 H (0.7-1.2) mg/dL Glucose 274 H (65-100) mg/dL Calcium 8.8 (8.4-10.2) mg/dL Adrenal panel 12/21/17 Range/Units 04:14 Sodium 158 H (137-145) mmol/L Potassium 3.4 L (3.6-5.0) mmol/L Chloride 119.8 H (98-107) mmol/L Carbon Dioxide 17 L (22-30) mmol/L BUN 100 H (7-17) mg/dL Creatinine 3.9 H (0.7-1.2) mg/dL Glucose 274 H (65-100) mg/dL Calcium 8.8 (8.4-10.2) mg/dL - Imaging CT scan - abdomen: report reviewed, image reviewed Assessment and Plan - Patient Problems (1) Infection of PEG site Current Visit: Yes Status: Acute Plan to address problem: I agree with Dr. Ojeda that we are probably dealing with an abdominal wall infection. I think this is been going on for a while now. I was able to contact the sister, Ms. Dalal. I explained my assessment and my recommendations. She seemed to understand as she was able to reiterate everything back to me. We discussed options of going to surgery versus bedside drainage versus simply just removing the peg tube. The sister understood that if we go to surgery she would have to be intubated and then admitted to ICU afterwards. After discussing all the procedures, benefits, risks, alternatives , she chose for us to go to the operating room. The sister understood that this is a high risk endeavor due to her multiple medical problems and her abnormal labs. Telephone consent was done with the patient's nurse being the witness. I discussed the case with Dr. Hollingsworth and with the anesthesiologist. Recommendation was made by anesthesia for 2 units of packed red blood cell transfusion before surgery. We will proceed to the operating room tonight as soon as a room is available. Time=75min
[2017-12-21] MEDS: ZOSYN/NS 2.25 GM/50ML 2.25 GM/50 ML BAG IV SCH (18:04)
[2017-12-21] MEDS: ZYVOX 600MG/300ML 600 MG/300 ML BAG IV SCH (18:05)
--- NOTE | 2017-12-21 18:51 | Event Note ---
Date: 12/21/17 The sister arrived before surgery. therefore, I went to the patient's room to meet the family. They explained their observations. I explained our plan for tonight. they were very appreciated of our efforts. They understand that she is high risk for not doing well. they know she will be remaining on the vent after surgery and going to the ICU.
[2017-12-21] MEDS ORDERED: QUELICIN ONE (20:33)
[2017-12-21] MEDS ORDERED: AMIDATE IV ONE ×2 (20:36→21:46)
[2017-12-21] MEDS ORDERED: XYLOCAINE MPF 2% ONE (20:36)
[2017-12-21] MEDS ORDERED: ZEMURON IV ONE (20:36)
[2017-12-21] MEDS ORDERED: NEO SYNEPHRINE/NS Syringe(OR USE) IV ONE (21:00)
--- NOTE | 2017-12-21 21:39 | Anesthesia Consultation ---
Anesthesia Consult and Med Hx Date of service: 12/21/17 - Airway Anesthetic Teeth Evaluation: Poor, Chipped ROM Head & Neck: Inadequate Mental/Hyoid Distance: Adequate Mallampati Class: Class III Intubation Access Assessment: Possibly Difficult - Pulmonary Exam CTA: No (on o2 mask) - Cardiac Exam Cardiac Exam: No Murmur - Pre-Operative Health Status ASA Pre-Surgery Classification: ASA5 Proposed Anesthetic Plan: General - Pulmonary Hx Smoking: No Hx Sleep Apnea: Yes - Cardiovascular System Hx Hypertension: Yes - Central Nervous System CVA: Yes (x3)
--- NOTE | 2017-12-21 21:40 | Anesthesia Day of Surgery ---
Anesthesia Day of Surgery - Day of Surgery Patient Examined: Yes Patient H&P Reviewed: Yes Patient is NPO: Yes
[2017-12-21] MEDS ORDERED: SUBLIMAZE ONE (22:36)
[2017-12-21] MEDS ORDERED: DAKIN'S HALF STRENGTH TP ONE (22:59)
--- NOTE | 2017-12-21 23:36 | Post Operative Note ---
Pre-op diagnosis: abdominal wall infection Post-op diagnosis: same Findings: large amount of infected subcutaneous tissue. Some necrotic subcutaneous tissue. No underlying fascial necrosis. No communication to peritoneal cavity. Procedure: Incision, drainage, and debridement Anesthesia: SHANTELLE Surgeon: RANJANA TRUJILLO Estimated blood loss: other (400cc) Pathology: list (culture swabs x 2 sets; tissue culture) Specimen disposition: to lab Condition: stable Disposition: PACU
--- NOTE | 2017-12-22 00:34 | Post Anesthesia Evaluation ---
- Post Anesthesia Evaluation Patient Participated: No (unresponsive pre op[encephlopathy) Airway Patent: Yes (o2 by mask same as pre op) Stable Respiratory Function: Yes Nausea/Vomiting: No Temp > 96.8F: Yes Pain Manageable: Yes Adequeate Hydration: Yes Anesthesia Complications: No Block Receding Appropriately: Not Applicable Patient on Ventilator: Yes
[2017-12-22] MEDS ORDERED: MORPHINE IV PRN (01:09)
[2017-12-22] MEDS ORDERED: TYLENOL PR PRN (01:09)
[2017-12-22] MEDS: NOVOLOG SUB-Q SCH ×4 (01:32→19:01)
[2017-12-22] MEDS: ZOSYN/NS 2.25 GM/50ML 2.25 GM/50 ML BAG IV SCH ×3 (04:56→18:59)
[2017-12-22] MEDS: ZYVOX 600MG/300ML 600 MG/300 ML BAG IV SCH ×2 (06:02→18:55)
[2017-12-22 07:10] LABS: Basophils # (Auto) 0.1 K/mm3 (0.0-0.1); Basophils % (Auto) 0.3 % (0.0-1.8); Eosinophils # (Auto) 0.3 K/mm3 (0.0-0.4); Eosinophils % (Auto) 1.7 % (0.0-4.3); Hematocrit 30.7 % (30.3-42.9); Hemoglobin 9.6 gm/dl (10.1-14.3); Lymphocytes # (Auto) 1.9 K/mm3 (1.2-5.4); Lymphocytes % (Auto) 11.1 % (13.4-35.0); Mean Corpuscular HGB Conc 31 % (30-34); Mean Corpuscular Volume 83 fl (79-97); Monocytes # (Auto) 1.1 K/mm3 (0.0-0.8); Monocytes % (Auto) 6.6 % (0.0-7.3); Platelet Count 253 K/mm3 (140-440)
[2017-12-22 07:20] LABS: Mean Corpuscular Hemoglobin 26 pg (28-32)
[2017-12-22 07:31] LABS: Calcium 8.8 mg/dL (8.4-10.2)
[2017-12-22] MEDS: ALPHAGAN P 0.15% OU SCH ×2 (11:42→22:55)
--- NOTE | 2017-12-22 12:02 | Gastroenterology Progress Note ---
Assessment and Plan GI: s/p surgical intervention abcess around peg site - management per surgery team - will sign off, call if needed Subjective Date of service: 12/22/17 Interval history: - s/p surgical intervention, no GI complaints Objective - Constitutional Vitals: Temp Pulse Resp BP Pulse Ox 98 F 85 15 97/62 100 12/22/17 08:00 12/22/17 09:00 12/22/17 09:00 12/22/17 09:00 12/22/17 09:00 General appearance: no acute distress - Respiratory Respiratory: bilateral: CTA - Cardiovascular Rhythm: regular Heart Sounds: Present: S1 & S2 - Gastrointestinal General gastrointestinal: Present: soft, non-tender, tender - Labs CBC & Chem 7: 12/22/17 06:56 12/22/17 06:56 Labs: Laboratory Results - last 24 hr 12/21/17 12/21/17 12/21/17 17:11 17:45 19:38 WBC RBC Hgb Hct MCV MCH MCHC RDW Plt Count Lymph % (Auto) [place] % (Auto) Eos % (Auto) Baso % (Auto) Lymph # [place] # Eos # Baso # Seg Neutrophils % Seg Neutrophils # Sodium Potassium Chloride Carbon Dioxide Anion Gap BUN Creatinine Estimated GFR BUN/Creatinine Ratio Glucose POC Glucose 179 H 178 H Calcium C-Reactive Protein Blood Type O POSITIVE Antibody Screen Negative Crossmatch See Detail 12/21/17 12/21/17 12/22/17 23:46 Unknown 01:31 WBC RBC Hgb Hct MCV MCH MCHC RDW Plt Count Lymph % (Auto) [place] % (Auto) Eos % (Auto) Baso % (Auto) Lymph # [place] # Eos # Baso # Seg Neutrophils % Seg Neutrophils # Sodium Potassium Chloride Carbon Dioxide Anion Gap BUN Creatinine Estimated GFR BUN/Creatinine Ratio Glucose POC Glucose 170 H 232 H Calcium C-Reactive Protein 37.50 H Blood Type Antibody Screen Crossmatch 12/22/17 12/22/17 06:56 06:56 WBC 16.7 H RBC 3.70 Hgb 9.6 L Hct 30.7 MCV 83 MCH 26 L MCHC 31 RDW 20.0 H Plt Count 253 Lymph % (Auto) 11.1 L [place] % (Auto) 6.6 Eos % (Auto) 1.7 Baso % (Auto) 0.3 Lymph # 1.9 [place] # 1.1 H Eos # 0.3 Baso # 0.1 Seg Neutrophils % 80.3 H Seg Neutrophils # 13.4 H Sodium 154 H Potassium 4.2 D Chloride 119.1 H Carbon Dioxide 17 L Anion Gap 22 BUN 99 H Creatinine 4.2 H Estimated GFR 13 BUN/Creatinine Ratio 24 Glucose 226 H POC Glucose Calcium 8.8 C-Reactive Protein Blood Type Antibody Screen Crossmatch
[2017-12-22] MEDS: DAKIN'S HALF STRENGTH TP SCH (12:19)
--- NOTE | 2017-12-22 12:37 | Progress Note ---
Assessment and Plan - Patient Problems (1) Abdominal wall abscess Current Visit: Yes Status: Acute Plan to address problem: Patient appears stable. s/p I&D of abdominal wall abscess - 3/2 POD#1 - appears very clean today. No residual pus or necrotic tissue seen. White count is much improved. Dressing changes at the bedside today. I've instructed the nurse to do it tomorrow. Thereafter, when wound care assesses the patient on Sunday, hopefully she will be ready for a wound VAC. Please call with any questions Subjective Date of service: 12/22/17 Patient Reports: Positive: no new complaints (no events overnight. Patient still unable to interact) Objective Vital Signs - 12hr 12/22/17 12/22/17 12/22/17 00:54 01:00 01:10 Temperature 99.5 F Pulse Rate 79 85 Pulse Rate [ From Monitor] Pulse Rate [ 84 None] Respiratory 16 16 20 Rate Blood Pressure 92/58 99/59 O2 Sat by Pulse 86 96 90 Oximetry 12/22/17 12/22/17 12/22/17 01:14 01:20 01:22 Temperature Pulse Rate 84 84 82 Pulse Rate [ From Monitor] Pulse Rate [ None] Respiratory 18 18 17 Rate Blood Pressure 99/59 94/63 99/59 O2 Sat by Pulse 93 95 93 Oximetry 12/22/17 12/22/17 12/22/17 01:30 01:40 01:41 Temperature 98.9 F Pulse Rate 83 85 82 Pulse Rate [ From Monitor] Pulse Rate [ None] Respiratory 22 16 15 Rate Blood Pressure 98/64 98/64 98/64 O2 Sat by Pulse 97 96 98 Oximetry 12/22/17 12/22/17 12/22/17 01:50 01:56 02:00 Temperature 98.0 F Pulse Rate 85 87 87 Pulse Rate [ From Monitor] Pulse Rate [ None] Respiratory 19 17 18 Rate Blood Pressure 100/65 100/65 105/68 O2 Sat by Pulse 98 100 100 Oximetry 12/22/17 12/22/17 12/22/17 02:10 02:20 02:26 Temperature 97.8 F Pulse Rate 87 82 83 Pulse Rate [ From Monitor] Pulse Rate [ None] Respiratory 20 16 18 Rate Blood Pressure 105/68 108/64 117/70 O2 Sat by Pulse 99 99 100 Oximetry 12/22/17 12/22/17 12/22/17 02:30 02:40 02:50 Temperature Pulse Rate 82 81 80 Pulse Rate [ From Monitor] Pulse Rate [ None] Respiratory 22 14 15 Rate Blood Pressure 108/64 117/70 97/62 O2 Sat by Pulse 100 100 100 Oximetry 12/22/17 12/22/17 12/22/17 02:56 03:00 03:10 Temperature 98.2 F Pulse Rate 82 82 83 Pulse Rate [ From Monitor] Pulse Rate [ None] Respiratory 20 15 20 Rate Blood Pressure 102/62 108/69 108/69 O2 Sat by Pulse 100 100 100 Oximetry 12/22/17 12/22/17 12/22/17 03:20 03:26 03:30 Temperature 98.2 F Pulse Rate 79 80 79 Pulse Rate [ From Monitor] Pulse Rate [ None] Respiratory 17 18 16 Rate Blood Pressure 102/62 108/68 100/77 O2 Sat by Pulse 100 100 100 Oximetry 12/22/17 12/22/17 12/22/17 03:40 03:50 04:00 Temperature Pulse Rate 83 81 82 Pulse Rate [ From Monitor] Pulse Rate [ None] Respiratory 12 16 16 Rate Blood Pressure 100/77 106/70 108/66 O2 Sat by Pulse 100 100 Oximetry 12/22/17 12/22/17 12/22/17 04:10 04:20 04:22 Temperature 98.3 F Pulse Rate 81 79 Pulse Rate [ From Monitor] Pulse Rate [ None] Respiratory 15 16 Rate Blood Pressure 108/66 103/67 O2 Sat by Pulse 100 100 Oximetry 12/22/17 12/22/17 12/22/17 04:30 04:40 04:50 Temperature Pulse Rate 79 82 80 Pulse Rate [ From Monitor] Pulse Rate [ None] Respiratory 15 20 13 Rate Blood Pressure 112/68 112/68 109/71 O2 Sat by Pulse 100 100 100 Oximetry 12/22/17 12/22/17 12/22/17 05:00 05:01 05:10 Temperature 98.0 F Pulse Rate 82 82 84 Pulse Rate [ From Monitor] Pulse Rate [ None] Respiratory 18 17 15 Rate Blood Pressure 112/69 109/71 112/69 O2 Sat by Pulse 100 99 100 Oximetry 12/22/17 12/22/17 12/22/17 05:20 05:30 05:40 Temperature Pulse Rate 79 81 80 Pulse Rate [ From Monitor] Pulse Rate [ None] Respiratory 15 14 16 Rate Blood Pressure 110/70 106/68 106/68 O2 Sat by Pulse 100 100 100 Oximetry 12/22/17 12/22/17 12/22/17 05:50 06:00 06:10 Temperature Pulse Rate 85 83 90 Pulse Rate [ From Monitor] Pulse Rate [ None] Respiratory 13 17 13 Rate Blood Pressure 111/68 108/67 108/67 O2 Sat by Pulse 100 100 Oximetry 12/22/17 12/22/17 12/22/17 06:20 06:30 06:40 Temperature Pulse Rate 85 85 84 Pulse Rate [ From Monitor] Pulse Rate [ None] Respiratory 12 20 19 Rate Blood Pressure 108/72 104/63 104/63 O2 Sat by Pulse 100 100 Oximetry 12/22/17 12/22/17 12/22/17 06:50 07:00 07:10 Temperature Pulse Rate 87 86 87 Pulse Rate [ From Monitor] Pulse Rate [ None] Respiratory 16 16 17 Rate Blood Pressure 105/64 104/69 104/69 O2 Sat by Pulse 100 100 100 Oximetry 12/22/17 12/22/17 12/22/17 07:20 07:30 07:40 Temperature Pulse Rate 78 85 71 Pulse Rate [ From Monitor] Pulse Rate [ None] Respiratory 15 19 14 Rate Blood Pressure 107/66 101/70 101/70 O2 Sat by Pulse 100 100 100 Oximetry 12/22/17 12/22/17 12/22/17 07:50 08:00 08:10 Temperature 98 F Pulse Rate 83 93 H 88 Pulse Rate [ From Monitor] Pulse Rate [ None] Respiratory 19 19 15 Rate Blood Pressure 102/69 112/73 112/73 O2 Sat by Pulse 100 100 98 Oximetry 12/22/17 12/22/17 12/22/17 08:20 08:30 08:40 Temperature Pulse Rate 85 84 82 Pulse Rate [ From Monitor] Pulse Rate [ None] Respiratory 15 18 16 Rate Blood Pressure 111/64 111/57 111/57 O2 Sat by Pulse 100 100 100 Oximetry 12/22/17 12/22/17 08:50 09:00 Temperature Pulse Rate 84 81 Pulse Rate [ 85 From Monitor] Pulse Rate [ None] Respiratory 16 15 Rate Blood Pressure 92/59 97/62 O2 Sat by Pulse 100 100 Oximetry - General physical appearance no distress - Respiratory normal expansion, normal respiratory effort - Abdomen soft, not tender, wound (appears very clean today. There are no residual areas of necrosis or infection. No signs of any active bleeding. Dressing was changed at the bedside today.) - Labs 12/22/17 06:56 12/22/17 06:56 Diabetes panel 12/22/17 Range/Units 06:56 Sodium 154 H (137-145) mmol/L Potassium 4.2 D (3.6-5.0) mmol/L Chloride 119.1 H (98-107) mmol/L Carbon Dioxide 17 L (22-30) mmol/L BUN 99 H (7-17) mg/dL Creatinine 4.2 H (0.7-1.2) mg/dL Glucose 226 H (65-100) mg/dL Calcium 8.8 (8.4-10.2) mg/dL Calcium panel 12/22/17 Range/Units 06:56 Calcium 8.8 (8.4-10.2) mg/dL Pituitary panel 12/22/17 Range/Units 06:56 Sodium 154 H (137-145) mmol/L Potassium 4.2 D (3.6-5.0) mmol/L Chloride 119.1 H (98-107) mmol/L Carbon Dioxide 17 L (22-30) mmol/L BUN 99 H (7-17) mg/dL Creatinine 4.2 H (0.7-1.2) mg/dL Glucose 226 H (65-100) mg/dL Calcium 8.8 (8.4-10.2) mg/dL Adrenal panel 12/22/17 Range/Units 06:56 Sodium 154 H (137-145) mmol/L Potassium 4.2 D (3.6-5.0) mmol/L Chloride 119.1 H (98-107) mmol/L Carbon Dioxide 17 L (22-30) mmol/L BUN 99 H (7-17) mg/dL Creatinine 4.2 H (0.7-1.2) mg/dL Glucose 226 H (65-100) mg/dL Calcium 8.8 (8.4-10.2) mg/dL
--- NOTE | 2017-12-22 13:16 | Consultation ---
History of Present Illness - Reason for Consult Consult date: 12/22/17 Post-op ICU management Requesting physician: BOLIVAR HOLLINGSWORTH - History of Present Illness 67 y/o female, intermediate resident, admitted post-op from late surgery for complications with peg tube. Had some electrolyte imbalances that are still present but surgery wanted to watch overnight in ICU. Stable with no acute issues. Patient is nonverbal at baseline. Past History Past Medical History: atrial fib, diabetes, hypertension, renal failure, other ( dementia) Past Surgical History: Other (unknown) Social history: denies: smoking, alcohol abuse Family history: no significant family history Medications and Allergies Allergies Allergy/AdvReac Type Severity Reaction Status Date / Time codeine Allergy Unknown Verified 09/26/17 12:32 Home Medications Medication Instructions Recorded Confirmed Last Taken Type Acetaminophen [Tylenol Extra 500 mg FEEDTUBE BID 09/26/17 12/20/17 Unknown History Strength] Amlodipine Besylate [Norvasc] 10 mg FEEDTUBE DAILY 09/26/17 12/20/17 Unknown History Ascorbic Acid [Vitamin C] 250 mg FEEDTUBE BID 09/26/17 12/20/17 Unknown History Aspirin [Aspirin TAB] 325 mg FEEDTUBE QDAY 09/26/17 12/20/17 Unknown History Ferrous Sulfate [Iron] 325 mg FEEDTUBE DAILY 09/26/17 12/20/17 Unknown History Insulin Lispro [Humalog 100 0 units SQ AC 09/26/17 12/20/17 Unknown History UNITS/ML Kwikpen] Metformin HCl [Glucophage] 500 mg FEEDTUBE DAILY 09/26/17 12/20/17 Unknown History Multivitamin Tab W-MINERAL 1 each FEEDTUBE QD 09/26/17 12/20/17 Unknown History [Multiple Vitamin/Mineral (Theragran M)] Lena-3 Fatty Acids/Fish Oil [Fish 1 each FEEDTUBE TID 09/26/17 12/20/17 Unknown History Oil 1,000 mg Softgel] Simvastatin [Zocor TAB] 60 mg FEEDTUBE QHS 09/26/17 12/20/17 Unknown History Brimonidine Tartrate [Alphagan P 1 drop OU BID 12/20/17 12/20/17 Unknown History 0.1%] Potassium Chloride 20 meq FEEDTUBE 2XW 12/20/17 12/20/17 Unknown History Sodium Bicarbonate 650 mg FEEDTUBE Q7D 12/20/17 12/20/17 Unknown History traMADol [Ultram 50 MG tab] 50 mg FEEDTUBE Q6HR PRN 12/20/17 12/20/17 Unknown History Active Meds: Active Medications Acetaminophen (Tylenol) 650 mg OK Q6H PRN PRN Reason: Fever Brimonidine Tartrate (Alphagan P 0.15%) 1 drops OU BID FABIOLA Last Admin: 12/22/17 11:42 Dose: 1 drops Dextrose (D50w (25gm) Syringe) 50 ml IV PRN PRN PRN Reason: Hypoglycemia Potassium Chloride 20 meq/ (Dextrose) 1,010 mls @ 100 mls/hr IV DIRECT FABIOLA Last Admin: 12/21/17 14:55 Dose: 100 mls/hr Linezolid (Zyvox 600mg/300ml) 600 mg in 300 mls @ 300 mls/hr IV Q12H FABIOLA; Protocol Last Admin: 12/22/17 06:02 Dose: 300 mls/hr Piperacillin Sod/Tazobactam Sod (Zosyn/Ns 2.25 Gm/50ml) 2.25 gm in 50 mls @ 100 mls/hr IV Q8H FABIOLA; Protocol Last Admin: 12/22/17 11:02 Dose: 100 mls/hr Insulin Aspart (Novolog) 0 units SUB-Q Q6HR FABIOLA; Protocol Last Admin: 12/22/17 01:32 Dose: Not Given Metoclopramide HCl (Reglan) 5 mg IV Q8H PRN PRN Reason: Nausea And Vomiting Morphine Sulfate (Morphine) 2 mg IV Q3H PRN PRN Reason: Pain, Moderate (4-6) Sodium Hypochlorite (Dakin's Half Strength) 1 applic TP DAILY FABIOLA Last Admin: 12/22/17 12:19 Dose: 1 applicatio Exam - Constitutional Vitals: Temp Pulse Resp BP Pulse Ox 98 F 85 15 97/62 100 12/22/17 08:00 12/22/17 09:00 12/22/17 09:00 12/22/17 09:00 12/22/17 09:00 Results - Labs CBC & Chem 7: 12/22/17 06:56 12/22/17 06:56 Labs: Abnormal lab results 12/21/17 12/21/17 12/21/17 Range/Units 17:11 17:45 19:38 WBC (4.5-11.0) K/mm3 Hgb (10.1-14.3) gm/dl MCH (28-32) pg RDW (13.2-15.2) % Lymph % (Auto) (13.4-35.0) % [place] # (0.0-0.8) K/mm3 Seg Neutrophils % (40.0-70.0) % Seg Neutrophils # (1.8-7.7) K/mm3 Sodium (137-145) mmol/L Chloride (98-107) mmol/L Carbon Dioxide (22-30) mmol/L BUN (7-17) mg/dL Creatinine (0.7-1.2) mg/dL Glucose (65-100) mg/dL POC Glucose 179 H 178 H (70-105) C-Reactive Protein (0.00-1.30) mg/dL Crossmatch See Detail 12/21/17 12/21/17 12/22/17 Range/Units 23:46 Unknown 01:31 WBC (4.5-11.0) K/mm3 Hgb (10.1-14.3) gm/dl MCH (28-32) pg RDW (13.2-15.2) % Lymph % (Auto) (13.4-35.0) % [place] # (0.0-0.8) K/mm3 Seg Neutrophils % (40.0-70.0) % Seg Neutrophils # (1.8-7.7) K/mm3 Sodium (137-145) mmol/L Chloride (98-107) mmol/L Carbon Dioxide (22-30) mmol/L BUN (7-17) mg/dL Creatinine (0.7-1.2) mg/dL Glucose (65-100) mg/dL POC Glucose 170 H 232 H (70-105) C-Reactive Protein 37.50 H (0.00-1.30) mg/dL Crossmatch 12/22/17 12/22/17 Range/Units 06:56 06:56 WBC 16.7 H (4.5-11.0) K/mm3 Hgb 9.6 L (10.1-14.3) gm/dl MCH 26 L (28-32) pg RDW 20.0 H (13.2-15.2) % Lymph % (Auto) 11.1 L (13.4-35.0) % [place] # 1.1 H (0.0-0.8) K/mm3 Seg Neutrophils % 80.3 H (40.0-70.0) % Seg Neutrophils # 13.4 H (1.8-7.7) K/mm3 Sodium 154 H (137-145) mmol/L Chloride 119.1 H (98-107) mmol/L Carbon Dioxide 17 L (22-30) mmol/L BUN 99 H (7-17) mg/dL Creatinine 4.2 H (0.7-1.2) mg/dL Glucose 226 H (65-100) mg/dL POC Glucose (70-105) C-Reactive Protein (0.00-1.30) mg/dL Crossmatch Assessment and Plan 67 y/o female, post op day 1 from surgery, with electrolyte imbalance and renal failure. Electrolyte imbalance monitored by renal and primary BP stable Wean FiO2 to off as tolerated. Sats are 100% Stable for transfer out of unit. Feeding and feeding recs per Surgery note.
--- NOTE | 2017-12-22 13:33 | Progress Note ---
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 Due to the presence of air any underlying infection cannot be excluded. Clinical correlation is recommended. Renal U/S reported no acute findings -Sepsis from abdominal wall abscess from PEG tube, poa, s/p i-n-d on 12/21/17, wbc better -Acute metabolic encephalopathy: Treat the hypernatremia -Hypernatremia: Treat with hypotonic solution -Hypokalemia: Replace and recheck a.m. -Suspect severe malnutrition: Consult Software Engineering Project Manager -UTI present on admission: Continue IV antibiotics -Malfunction PEG: GI consulted -ARF, vasomotor nephropathy, poa, Cr was 1.0 on 2016: Consult nephrology, get renal u/s -Sacral pressure ulcer present on admission: Consult and discussed wound care nurse DNR per chart 12/20/17. suspected UTI w/ sepsis, unable to get UA specimen, will start treatment. d/w nursing to straight cath for UA 12/21/17: Continue IV antibiotics, await urine culture, Consulted infectious disease, worsening white blood cell count of 28.9k, GI and renal to evaluate, ID called me and concerned about necrotizing fascitis at PEG site. So, i called and spoke with Dr. Ascencio and we evaluated the patient together, patient went immediately to surgery after consent obtained. She received 1 unit of prbc transfusion, she was sent to ICU for overnight monitoring, she was successfully extubated prior to icu arrival. 12/22/17: Clinically much better, wbc is decreasing. will continue to monitor and treat with iv abx, will transfer back to floor. History Interval history: Patient was seen and examined. Follow-up on current diagnosis altered mental status still present. Overnight uneventful, no issues reported to me. Patient is nonverbal. Imaging, nursing note, chart, labs and old chart reviewed. Hospitalist Physical - Physical exam Narrative exam: GEN: Chronic debilitated, cachectic, NAD, eyes closed nonverbal HEENT: NCAT, EOMI, PERRL, OP pasty and dry NECK: no adenopathy, no thyromegaly, no JVD CVS/HEART: Regular tachycardia, NORMAL S1S2, pulses present bilaterally CHEST/LUNGS: Symmetrical chest expansion, good air entry bilaterally GI/Abdomen: soft, ND, PEG tube removed, large left quadrant surgical drs intact , good bowel sounds, no guarding or rebound /Bladder: no grimacing with palp EXT/Skin: Atrophic limbs, sacral dressing intact MSK: Contractures 4 Neuro: Doesn't follow commands, breathing normal overall, maintaining her airway Psych: Confused - Constitutional Vitals: Temp Pulse Resp BP Pulse Ox 98 F 85 15 97/62 100 12/22/17 08:00 12/22/17 09:00 12/22/17 09:00 12/22/17 09:00 12/22/17 10:00 Results - Labs CBC & Chem 7: 12/22/17 06:56 12/22/17 06:56 Labs: Laboratory Last Values WBC 16.7 K/mm3 (4.5-11.0) H 12/22/17 06:56 RBC 3.70 M/mm3 (3.65-5.03) 12/22/17 06:56 Hgb 9.6 gm/dl (10.1-14.3) L 12/22/17 06:56 Hct 30.7 % (30.3-42.9) 12/22/17 06:56 MCV 83 fl (79-97) 12/22/17 06:56 MCH 26 pg (28-32) L 12/22/17 06:56 MCHC 31 % (30-34) 12/22/17 06:56 RDW 20.0 % (13.2-15.2) H 12/22/17 06:56 Plt Count 253 K/mm3 (140-440) 12/22/17 06:56 Lymph % (Auto) 11.1 % (13.4-35.0) L 12/22/17 06:56 [place] % (Auto) 6.6 % (0.0-7.3) 12/22/17 06:56 Eos % (Auto) 1.7 % (0.0-4.3) 12/22/17 06:56 Baso % (Auto) 0.3 % (0.0-1.8) 12/22/17 06:56 Lymph # 1.9 K/mm3 (1.2-5.4) 12/22/17 06:56 [place] # 1.1 K/mm3 (0.0-0.8) H 12/22/17 06:56 Eos # 0.3 K/mm3 (0.0-0.4) 12/22/17 06:56 Baso # 0.1 K/mm3 (0.0-0.1) 12/22/17 06:56 Add Manual Diff Complete 12/21/17 04:14 Total Counted 100 12/21/17 04:14 Seg Neutrophils % 80.3 % (40.0-70.0) H 12/22/17 06:56 Seg Neuts % (Manual) 43.0 % (40.0-70.0) 12/21/17 04:14 Band Neutrophils % 47.0 % 12/21/17 04:14 Lymphocytes % (Manual) 6.0 % (13.4-35.0) L 12/21/17 04:14 Reactive Lymphs % (Man) 0 % 12/21/17 04:14 Monocytes % (Manual) 0 % (0.0-7.3) 12/21/17 04:14 Eosinophils % (Manual) 1.0 % (0.0-4.3) 12/21/17 04:14 Basophils % (Manual) 0 % (0.0-1.8) 12/21/17 04:14 Metamyelocytes % 3.0 % 12/21/17 04:14 Myelocytes % 0 % 12/21/17 04:14 Promyelocytes % 0 % 12/21/17 04:14 Blast Cells % 0 % 12/21/17 04:14 Nucleated RBC % Not Reportable 12/21/17 04:14 Seg Neutrophils # 13.4 K/mm3 (1.8-7.7) H 12/22/17 06:56 Seg Neutrophils # Man 12.4 K/mm3 (1.8-7.7) H 12/21/17 04:14 Band Neutrophils # 13.6 K/mm3 12/21/17 04:14 Lymphocytes # (Manual) 1.7 K/mm3 (1.2-5.4) 12/21/17 04:14 Abs React Lymphs (Man) 0.0 K/mm3 12/21/17 04:14 Monocytes # (Manual) 0.0 K/mm3 (0.0-0.8) 12/21/17 04:14 Eosinophils # (Manual) 0.3 K/mm3 (0.0-0.4) 12/21/17 04:14 Basophils # (Manual) 0.0 K/mm3 (0.0-0.1) 12/21/17 04:14 Metamyelocytes # 0.9 K/mm3 12/21/17 04:14 Myelocytes # 0.0 K/mm3 12/21/17 04:14 Promyelocytes # 0.0 K/mm3 12/21/17 04:14 Blast Cells # 0.0 K/mm3 12/21/17 04:14 WBC Morphology Not Reportable 12/21/17 04:14 Hypersegmented Neuts Not Reportable 12/21/17 04:14 Hyposegmented Neuts Not Reportable 12/21/17 04:14 Hypogranular Neuts Not Reportable 12/21/17 04:14 Smudge Cells Not Reportable 12/21/17 04:14 Toxic Granulation Not Reportable 12/21/17 04:14 Toxic Vacuolation Not Reportable 12/21/17 04:14 Dohle Bodies Few 12/21/17 04:14 Pelger-Huet Anomaly Not Reportable 12/21/17 04:14 Stephany Rods Not Reportable 12/21/17 04:14 Platelet Estimate Appears normal 12/21/17 04:14 Clumped Platelets Not Reportable 12/21/17 04:14 Plt Clumps, EDTA Not Reportable 12/21/17 04:14 Large Platelets Not Reportable 12/21/17 04:14 Giant Platelets Not Reportable 12/21/17 04:14 Platelet Satelliting Not Reportable 12/21/17 04:14 Plt Morphology Comment Not Reportable 12/21/17 04:14 RBC Morphology Not Reportable 12/21/17 04:14 Dimorphic RBCs Not Reportable 12/21/17 04:14 Polychromasia Not Reportable 12/21/17 04:14 Hypochromasia Few 12/21/17 04:14 Poikilocytosis Not Reportable 12/21/17 04:14 Anisocytosis 1+ 12/21/17 04:14 Microcytosis Not Reportable 12/21/17 04:14 Macrocytosis Not Reportable 12/21/17 04:14 Spherocytes Few 12/21/17 04:14 Pappenheimer Bodies Not Reportable 12/21/17 04:14 Sickle Cells Not Reportable 12/21/17 04:14 Target Cells Not Reportable 12/21/17 04:14 Tear Drop Cells Not Reportable 12/21/17 04:14 Ovalocytes Not Reportable 12/21/17 04:14 Helmet Cells Not Reportable 12/21/17 04:14 Gallego-Maeser Bodies Not Reportable 12/21/17 04:14 [place] Rings Not Reportable 12/21/17 04:14 Maurice Cells Not Reportable 12/21/17 04:14 Bite Cells Not Reportable 12/21/17 04:14 Crenated Cell Not Reportable 12/21/17 04:14 Elliptocytes Not Reportable 12/21/17 04:14 Acanthocytes (Spur) Not Reportable 12/21/17 04:14 Rouleaux Not Reportable 12/21/17 04:14 Hemoglobin C Crystals Not Reportable 12/21/17 04:14 Schistocytes Not Reportable 12/21/17 04:14 Malaria parasites Not Reportable 12/21/17 04:14 Laron Bodies Not Reportable 12/21/17 04:14 Hem Pathologist Commnt No 12/21/17 04:14 PT 16.7 Sec. (12.2-14.9) H 12/19/17 22:00 INR 1.28 (0.87-1.13) H 12/19/17 22:00 APTT 34.3 Sec. (24.2-36.6) 12/19/17 22:00 Sodium 154 mmol/L (137-145) H 12/22/17 06:56 Potassium 4.2 mmol/L (3.6-5.0) D 12/22/17 06:56 Chloride 119.1 mmol/L (98-107) H 12/22/17 06:56 Carbon Dioxide 17 mmol/L (22-30) L 12/22/17 06:56 Anion Gap 22 mmol/L 12/22/17 06:56 BUN 99 mg/dL (7-17) H 12/22/17 06:56 Creatinine 4.2 mg/dL (0.7-1.2) H 12/22/17 06:56 Estimated GFR 13 ml/min 12/22/17 06:56 BUN/Creatinine Ratio 24 % 12/22/17 06:56 Glucose 226 mg/dL (65-100) H 12/22/17 06:56 POC Glucose 232 (70-105) H 12/22/17 01:31 Osmolality 375 Mosm/kg 12/20/17 14:36 Lactic Acid 1.40 mmol/L (0.7-2.0) 12/19/17 22:00 Uric Acid 13.4 mg/dL (3.5-7.6) H 12/20/17 14:36 Calcium 8.8 mg/dL (8.4-10.2) 12/22/17 06:56 Total Bilirubin 0.40 mg/dL (0.1-1.2) 12/19/17 22:00 AST 17 units/L (5-40) 12/19/17 22:00 ALT 17 units/L (7-56) 12/19/17 22:00 Alkaline Phosphatase 111 units/L (35-129) 12/19/17 22:00 Total Creatine Kinase 238 units/L (30-135) H 12/20/17 14:36 C-Reactive Protein 37.50 mg/dL (0.00-1.30) H 12/21/17 Unknown Total Protein 8.1 g/dL (6.3-8.2) 12/19/17 22:00 Albumin 2.9 g/dL (3.9-5) L 12/19/17 22:00 Albumin/Globulin Ratio 0.6 % 12/19/17 22:00 Urine Color Yellow (Yellow) 12/20/17 17:00 Urine Turbidity Cloudy (Clear) 12/20/17 17:00 Urine pH 5.0 (5.0-7.0) 12/20/17 17:00 Ur Specific [place] 1.013 (1.003-1.030) 12/20/17 17:00 Urine Protein 100 mg/dl mg/dL (Negative) 12/20/17 17:00 Urine Glucose (UA) Neg mg/dL (Negative) 12/20/17 17:00 Urine Ketones Neg mg/dL (Negative) 12/20/17 17:00 Urine Blood Mod (Negative) 12/20/17 17:00 Urine Nitrite Neg (Negative) 12/20/17 17:00 Urine Bilirubin Neg (Negative) 12/20/17 17:00 Urine Urobilinogen < 2.0 mg/dL (<2.0) 12/20/17 17:00 Ur Leukocyte Esterase Neg (Negative) 12/20/17 17:00 Urine WBC (Auto) 20.0 /HPF (0.0-6.0) H 12/20/17 17:00 Urine RBC (Auto) 15.0 /HPF (0.0-6.0) 12/20/17 17:00 Urine Mucus Few /HPF 12/20/17 17:00 Urine Creatinine 90.2 mg/dL (0.1-20.0) H 12/20/17 17:00 Urine Sodium 46 mmol/L 12/20/17 17:00 Urine Total Protein 91 mg/dL (5-11.8) H 12/20/17 17:00 Blood Type O POSITIVE 12/21/17 17:11 Antibody Screen Negative 12/21/17 17:11 Crossmatch See Detail 12/21/17 17:11
--- NOTE | 2017-12-22 14:35 | Progress Note ---
Assessment and Plan Assessment: 1) Sepsis: better. Etiology most likely complicated PEG site soft tissue infection +/- preseumed pneumonia 2) Complicated PEG site at RUQ soft tissue infection: abdominal Cellulitis / Abscess -Abdominal CT showed extensive inflammatory changes and SQ air in the RUQ abdominal wall. -s/p OR debridement on 12/21 large amount of infected SQ tissue with some necrosis, NO fascial necrosis seen per surgery. -OR cultures Gram stain GCP in chains / GVR -CRP=37 3) Encephalopathy: from sepsis / hypernatremia 4) HOA - worsening 5) Dementia 6) CVA with disphagia s/p PEG, UA leukocyte esterase neg and 20 white blood cells. 7) Presumed pneumonia: CXR presumed LLL infiltrate 8) Hypernatremia - better Plan: -appreciate surg intervention and cultures obtained -f/u OR cultures -continue zosyn and linezolid (avoid vanco due to HOA) - day 2 -follow-up blood cultures -contact isolation until MRSA is r/o I am rounding on Sunday Thank you for your consultation, will follow up with you. Malaika Vang MD Infectious Diseases Specialist [facility] ([facility]) M [phone] O [phone] Subjective Date of service: 12/22/17 Principal diagnosis: sepsis Interval history: Remains somnolent, no fever. no need for pressors. Went to the OR yesterday Microbiology: Blood cultures: 12/19 neg Urine cultures: 12/19 neg OR cultures: Gram stain GPC in chains and GVC Current Antimicrobials: zyvox 12/21 zosyn 12/21 Previous Antimicrobials: Levaquin 12/19 ceftriaxone Objective - Exam Narrative Exam: General appearance: somnolent in NAD, non conversant NC mask Eyes: anicteric sclerae, moist conjunctivae; no lid-lag; PERRLA HENT: Atraumatic; oropharynx limited Neck: Trachea midline; supple, no thyromegaly or lymphadenopathy Lungs: scattered jesus crackles CV: tachy Abdomen: Soft, +RUQ site with surg dressings Extremities: jesus contracted Skin: Normal temperature, turgor and texture; no rash, ulcers or subcutaneous nodules Psych: non verbal. Neuro: non verbal contracted leg Lines: - Constitutional Vitals: Vital Signs Temp Pulse Resp BP Pulse Ox 98 F 85 15 97/62 100 03/03/18 08:00 12/22/17 09:00 12/22/17 09:00 12/22/17 09:00 12/22/17 10:00 Temperature -Last 24 Hours Temperature 98 F Temperature 98.0 F Temperature 98.3 F Temperature 98.2 F Temperature 98.2 F Temperature 97.8 F Temperature 98.0 F Temperature 98.9 F Temperature 99.5 F Temperature 99 F Temperature 96.8 F - Labs CBC & Chem 7: 12/22/17 06:56 12/22/17 06:56 Labs: Abnormal lab results 12/21/17 12/21/17 12/21/17 Range/Units 17:11 17:45 19:38 WBC (4.5-11.0) K/mm3 Hgb (10.1-14.3) gm/dl MCH (28-32) pg RDW (13.2-15.2) % Lymph % (Auto) (13.4-35.0) % [place] # (0.0-0.8) K/mm3 Seg Neutrophils % (40.0-70.0) % Seg Neutrophils # (1.8-7.7) K/mm3 Sodium (137-145) mmol/L Chloride (98-107) mmol/L Carbon Dioxide (22-30) mmol/L BUN (7-17) mg/dL Creatinine (0.7-1.2) mg/dL Glucose (65-100) mg/dL POC Glucose 179 H 178 H (70-105) C-Reactive Protein (0.00-1.30) mg/dL Crossmatch See Detail 12/21/17 12/21/17 12/22/17 Range/Units 23:46 Unknown 01:31 WBC (4.5-11.0) K/mm3 Hgb (10.1-14.3) gm/dl MCH (28-32) pg RDW (13.2-15.2) % Lymph % (Auto) (13.4-35.0) % [place] # (0.0-0.8) K/mm3 Seg Neutrophils % (40.0-70.0) % Seg Neutrophils # (1.8-7.7) K/mm3 Sodium (137-145) mmol/L Chloride (98-107) mmol/L Carbon Dioxide (22-30) mmol/L BUN (7-17) mg/dL Creatinine (0.7-1.2) mg/dL Glucose (65-100) mg/dL POC Glucose 170 H 232 H (70-105) C-Reactive Protein 37.50 H (0.00-1.30) mg/dL Crossmatch 12/22/17 12/22/17 Range/Units 06:56 06:56 WBC 16.7 H (4.5-11.0) K/mm3 Hgb 9.6 L (10.1-14.3) gm/dl MCH 26 L (28-32) pg RDW 20.0 H (13.2-15.2) % Lymph % (Auto) 11.1 L (13.4-35.0) % [place] # 1.1 H (0.0-0.8) K/mm3 Seg Neutrophils % 80.3 H (40.0-70.0) % Seg Neutrophils # 13.4 H (1.8-7.7) K/mm3 Sodium 154 H (137-145) mmol/L Chloride 119.1 H (98-107) mmol/L Carbon Dioxide 17 L (22-30) mmol/L BUN 99 H (7-17) mg/dL Creatinine 4.2 H (0.7-1.2) mg/dL Glucose 226 H (65-100) mg/dL POC Glucose (70-105) C-Reactive Protein (0.00-1.30) mg/dL Crossmatch
--- NOTE | 2017-12-22 14:46 | Operative Report ---
PREOPERATIVE DIAGNOSIS: Abdominal wall abscess secondary to PEG tube dislocation. POSTOPERATIVE DIAGNOSIS: Abdominal wall abscess secondary to PEG tube dislocation. PROCEDURE: Incision, drainage and debridement of abdominal wall. ATTENDING PHYSICIAN: Armando Ascencio MD ANESTHESIA: General. ESTIMATED BLOOD LOSS: 400 mL. FLUIDS: 100 mL, which was a combination of packed red blood cells and normal saline. FINDINGS: Extensive purulent infection in the subcutaneous tissue along with some necrotic subcutaneous tissue in the left upper quadrant of the abdominal wall. No evidence of fascial involvement. No evidence to suggest communication into the peritoneal cavity. SPECIMENS: Two sets of culture swabs were taken, one from the midline portion of the wound and one from the lateral aspect. Tissue culture was also sent. DRAINS: None. COMPLICATIONS: None. DISPOSITION: Stable transport to Recovery Room. INDICATIONS: This is a 67-year-old female who is a [facility] resident and presented to the Emergency Room recently with altered mental status. Sepsis workup revealed a dislodged PEG tube and inflammatory changes along with air in the subcutaneous tissue. The team felt that the patient's source of sepsis was the abdominal wall. General Surgery was consulted. The patient was assessed to be in need for I and D. Procedure, risks, benefits, alternatives were discussed with the sister who was the primary decision maker, even though this is a high risk situation. Sister understood and wished to proceed with surgery. Consent was obtained. OPERATIVE NOTE: The patient was brought to the operating room and placed on table in supine position. Due to her contractures, she was placed as well as possible on the table protecting her pressure points. Sterile prep and drape was done. Antibiotics were already been given from the floor. Timeout was done. I began by probing the wound through the PEG tube site. There was clearly a pocket that seemed to be more at the 2 o'clock direction in relation to the PEG tube with 12 being towards the head. I therefore began by opening up the wound in that direction. This revealed a large amount of purulent material. Initial culture swabs were done through that purulent material. I then continued to probe the wound and open as needed. In total, the skin and subcutaneous tissue was excised in the amount of 100 square cm. All loculations were opened, so that we had one large wound. There was extensive infection as expected extending laterally from the PEG tube site. This was based on my CT evaluation, I felt at the end that we had opened up all the pockets. The remaining tissue appeared to be clean and healthy. We had very good bleeding tissue. We removed the tissue both with blunt and sharp dissection. There was granulation tissue at the base where the PEG tube was sitting. I bluntly scraped off that tissue, any chronic granulation tissue was also excised sharply and/or with electrocautery. Once I felt that most of the infected/necrotic tissue had been removed, we then pulse lavaged the wound with 2 liters of normal saline intermittently stopping so as to reassess the wound. Any further areas of concern were sharply debrided and the irrigation was continued. At the end, I thought the wound looked significantly better. I examined the base of the wound. It appeared as though we were still within the subcutaneous layer and that base was firm, meaning that we had not yet penetrated into the fascia that was still protected. The base was bleeding and appeared viable. Therefore, I did not feel that we needed to excise that. Hemostasis was achieved with electrocautery. At the end, it appeared as though all the pockets had been opened. We had one large wound that should be easily packed. Hemostasis was good. I found no other areas that needed debridement. We then packed the wound with Kerlix that was soaked in Dakin solution. The patient tolerated the procedure well. There were no complications. All counts were correct at the end of the case. I called his sister at the end of the case to give her report, she was very appreciative. JOB# [id number] NICK/JILLIAN
--- NOTE | 2017-12-22 15:08 | Progress Note ---
Assessment and Plan Assessment: * Acute kidney injury secondary to prerenal azotemia --Baseline SCr 1.0mg/dL --Renal u/s: no hydronephrosis * Hypernatremia * AMS * Leukocytosis - blood/urine cx NGTD * Anemia * Atrial fibrillation * CVA * Dementia Plan: * Renal prognosis is guarded; she may require dialysis * Resume D5W to 100ml/hour - not infusing, discussed with RN * Empiric abx per primary team * Transfuse pRBC per primary team * Strict I/O * Dose medications for renal function * Avoid potential nephrotoxin * Unsure of patient's baseline mental status. There are no family members at bedside. Attempted to reach NOK-sister but phone numbers are not in service. Attempted to reach patient's nephew - no answer. Will try again tomorrow Subjective Date of service: 12/22/17 Principal diagnosis: sepsis Objective - Vital Signs Vital signs: Vital Signs - 12hr 12/22/17 12/22/17 12/22/17 03:10 03:20 03:26 Temperature 98.2 F Pulse Rate 83 79 80 Pulse Rate [ From Monitor] Respiratory 20 17 18 Rate Blood Pressure 108/69 102/62 108/68 O2 Sat by Pulse 100 100 100 Oximetry 12/22/17 12/22/17 12/22/17 03:30 03:40 03:50 Temperature Pulse Rate 79 83 81 Pulse Rate [ From Monitor] Respiratory 16 12 16 Rate Blood Pressure 100/77 100/77 106/70 O2 Sat by Pulse 100 100 Oximetry 12/22/17 12/22/17 12/22/17 04:00 04:10 04:20 Temperature Pulse Rate 82 81 79 Pulse Rate [ From Monitor] Respiratory 16 15 16 Rate Blood Pressure 108/66 108/66 103/67 O2 Sat by Pulse 100 100 100 Oximetry 12/22/17 12/22/17 12/22/17 04:22 04:30 04:40 Temperature 98.3 F Pulse Rate 79 82 Pulse Rate [ From Monitor] Respiratory 15 20 Rate Blood Pressure 112/68 112/68 O2 Sat by Pulse 100 100 Oximetry 12/22/17 12/22/17 12/22/17 04:50 05:00 05:01 Temperature 98.0 F Pulse Rate 80 82 82 Pulse Rate [ From Monitor] Respiratory 13 18 17 Rate Blood Pressure 109/71 112/69 109/71 O2 Sat by Pulse 100 100 99 Oximetry 12/22/12/22/17 12/22/17 05:10 05:20 05:30 Temperature Pulse Rate 84 79 81 Pulse Rate [ From Monitor] Respiratory 15 15 14 Rate Blood Pressure 112/69 110/70 106/68 O2 Sat by Pulse 100 100 100 Oximetry 12/22/17 12/22/17 12/22/17 05:40 05:50 06:00 Temperature Pulse Rate 80 85 83 Pulse Rate [ From Monitor] Respiratory 16 13 17 Rate Blood Pressure 106/68 111/68 108/67 O2 Sat by Pulse 100 100 Oximetry 12/22/17 12/22/17 12/22/17 06:10 06:20 06:30 Temperature Pulse Rate 90 85 85 Pulse Rate [ From Monitor] Respiratory 13 12 20 Rate Blood Pressure 108/67 108/72 104/63 O2 Sat by Pulse 100 100 Oximetry 12/22/17 12/22/17 12/22/17 06:40 06:50 07:00 Temperature Pulse Rate 84 87 86 Pulse Rate [ From Monitor] Respiratory 19 16 16 Rate Blood Pressure 104/63 105/64 104/69 O2 Sat by Pulse 100 100 100 Oximetry 12/22/17 12/22/17 12/22/17 07:10 07:20 07:30 Temperature Pulse Rate 87 78 85 Pulse Rate [ From Monitor] Respiratory 17 15 19 Rate Blood Pressure 104/69 107/66 101/70 O2 Sat by Pulse 100 100 100 Oximetry 12/22/17 12/22/17 12/22/17 07:40 07:50 08:00 Temperature 98 F Pulse Rate 71 83 93 H Pulse Rate [ From Monitor] Respiratory 14 19 19 Rate Blood Pressure 101/70 102/69 112/73 O2 Sat by Pulse 100 100 100 Oximetry 12/22/17 12/22/17 12/22/17 08:10 08:20 08:30 Temperature Pulse Rate 88 85 84 Pulse Rate [ From Monitor] Respiratory 15 15 18 Rate Blood Pressure 112/73 111/64 111/57 O2 Sat by Pulse 98 100 100 Oximetry 12/22/1712/22/18 12/22/17 08:40 08:50 09:00 Temperature Pulse Rate 82 84 81 Pulse Rate [ 85 From Monitor] Respiratory 16 16 15 Rate Blood Pressure 111/57 92/59 97/62 O2 Sat by Pulse 100 100 100 Oximetry 12/22/17 10:00 Temperature Pulse Rate Pulse Rate [ From Monitor] Respiratory Rate Blood Pressure O2 Sat by Pulse 100 Oximetry - Lab 12/22/17 06:56 12/22/17 06:56 Most recent lab results Calcium 8.8 mg/dL (8.4-10.2) 12/22/17 06:56 Urine Creatinine 90.2 mg/dL (0.1-20.0) H 12/20/17 17:00 Urine Sodium 46 mmol/L 12/20/17 17:00 Urine Total Protein 91 mg/dL (5-11.8) H 12/20/17 17:00
[2017-12-22] MEDS: KCL 20 MEQ in D5W 1,000 ML IV SCH (16:18)
--- NOTE | 2017-12-22 17:49 | XRay Report ---
FINAL REPORT EXAM: XR ABDOMEN 1V AP HISTORY: Dobhoff placement COMPARISON: CT of the abdomen pelvis from December 20, 2017. FINDINGS: AP view of the abdomen obtained. Distal tip of feeding tube projects over the distal stomach. Left lateral abdominal wall hernia. IMPRESSION: Distal tip of feeding tube projects over the distal stomach.
[2017-12-23] MEDS: NOVOLOG SUB-Q SCH ×4 (00:16→17:35)
[2017-12-23] MEDS: ZOSYN/NS 2.25 GM/50ML 2.25 GM/50 ML BAG IV SCH ×3 (01:44→17:35)
[2017-12-23 05:12] LABS: Hematocrit 30.1 % (30.3-42.9); Hemoglobin 9.4 gm/dl (10.1-14.3); Mean Corpuscular HGB Conc 31 % (30-34); Mean Corpuscular Hemoglobin 25 pg (28-32); Mean Corpuscular Volume 82 fl (79-97); Platelet Count 281 K/mm3 (140-440); Red Blood Count 3.68 M/mm3 (3.65-5.03); Red Cell Distribution Width 20.3 % (13.2-15.2)
[2017-12-23 05:32] LABS: Calcium 8.7 mg/dL (8.4-10.2)
[2017-12-23] MEDS: ZYVOX 600MG/300ML 600 MG/300 ML BAG IV SCH ×2 (06:09→17:36)
[2017-12-23] MEDS ORDERED: SODIUM BICARBONATE FEEDTUBE PRN (08:40)
[2017-12-23] MEDS ORDERED: PANCREAZE DR 10,500 UNIT FEEDTUBE PRN (08:40)
[2017-12-23] MEDS ORDERED: SIMPLE SYRUP FEEDTUBE PRN ×2 (08:40)
--- NOTE | 2017-12-23 08:50 | Progress Note ---
Assessment and Plan Assessment: * Acute kidney injury secondary to prerenal azotemia --Baseline SCr 1.0mg/dL --Renal u/s: no hydronephrosis * Hypernatremia * AMS * Malfunctioning PEG w/ RUQ soft tissue infection * Leukocytosis - blood/urine cx NGTD * Anemia * Atrial fibrillation * CVA * Dementia Plan: * Renal function unchanged and hypernatremia is worsening. Again D5W not infusing at time of visit; per RN, it was not infusing when she arrived this am. Will increase rate to 150m/hour * Abx per ID * Transfuse pRBC per primary team * Strict I/O * Dose medications for renal function * Avoid potential nephrotoxin * Contacted patient's sister via phone ([phone]). Updated her of patient' s renal function and possibility of dialysis if renal function fails to improve. In future, she be contacted at [phone]. Subjective Date of service: 12/23/17 Principal diagnosis: sepsis Interval history: Patient transferred to the floor yesterday. No acute events overnight Objective - Vital Signs Vital signs: Vital Signs - 12hr 12/22/17 12/23/17 12/23/17 22:00 00:11 04:18 Temperature 97.5 F L 97.5 F L Pulse Rate 72 73 Respiratory 20 20 18 Rate Blood Pressure 107/79 142/83 O2 Sat by Pulse 99 100 Oximetry 12/23/17 08:27 Temperature 97.8 F Pulse Rate 73 Respiratory 20 Rate Blood Pressure 132/76 O2 Sat by Pulse 100 Oximetry EENT: ATNC Respiratory: Present: Clear to Ascultation Cardiology: regular, S1S2 Gastrointestinal: hypoactive bowel sounds Integumentary: no rash, warm and dry Neurologic: other (somnolent) Musculoskeletal: other (no edema) - Lab 12/23/17 04:29 12/23/17 04:29 Most recent lab results Calcium 8.7 mg/dL (8.4-10.2) 12/23/17 04:29 Urine Creatinine 90.2 mg/dL (0.1-20.0) H 12/20/17 17:00 Urine Sodium 46 mmol/L 12/20/17 17:00 Urine Total Protein 91 mg/dL (5-11.8) H 12/20/17 17:00
[2017-12-23] MEDS: MORPHINE IV PRN (10:07)
[2017-12-23] MEDS: ALPHAGAN P 0.15% OU SCH ×2 (10:08→23:03)
[2017-12-23] MEDS: DAKIN'S HALF STRENGTH TP SCH (10:08)
[2017-12-23] MEDS: KCL 20 MEQ in D5W 1,000 ML IV SCH (14:14)
--- NOTE | 2017-12-23 14:37 | Progress Note ---
Assessment and Plan Assessment and plan: Patient is a 67-year-old woman who is a shelter resident has [facility] with a plethora of severe comorbidities including advanced dementia with contractures, hypertension, type 2 diabetes mellitus, glaucoma, cataracts, blind, atrial fibrillation, sacral decubitus pressure ulcer , CVA with aphasia/dysphagia status post PEG tube and quadriplegia/bed bound state who presented to [facility] emergency department with worsen AMS, hypernatremia and PEG leakage with possible replacement pCXR reported as limited exam due to position CT abd/pelvis wo contrast IMPRESSION: Gastrostomy tube is within the anterior abdominal wall with extensive changes of inflammation. Due to the presence of air any underlying infection cannot be excluded. Renal U/S reported no acute findings -Sepsis from abdominal wall abscess from PEG tube, poa, s/p i-n-d on 12/21/17, wbc better -Acute metabolic encephalopathy: Treat the hypernatremia -Hypernatremia: Treat with hypotonic solution -Hypokalemia: Replace and recheck a.m. -Suspect severe malnutrition: Consult Databases Computer Consultant -UTI present on admission: Continue IV antibiotics -Malfunction PEG: GI consulted -ARF, vasomotor nephropathy, poa, Cr was 1.0 on 2016: Consult nephrology, get renal u/s -Sacral pressure ulcer present on admission: Consult and discussed wound care nurse DNR per chart 12/20/17. suspected UTI w/ sepsis, unable to get UA specimen, will start treatment. d/w nursing to straight cath for UA 12/21/17: Continue IV antibiotics, await urine culture, Consulted infectious disease, worsening white blood cell count of 28.9k, GI and renal to evaluate, ID called me and concerned about necrotizing fascitis at PEG site. So, i called and spoke with Dr. Ascencio and we evaluated the patient together, patient went immediately to surgery after consent obtained. She received 1 unit of prbc transfusion, she was sent to ICU for overnight monitoring, she was successfully extubated prior to icu arrival. 12/22/17: Clinically much better, wbc is decreasing. will continue to monitor and treat with iv abx, will transfer back to floor. 12/23/17: WBC went up, get pCXR, treat with nebs and continue abx History Interval history: Patient was seen and examined. Follow-up on current diagnosis altered mental status still present. Overnight uneventful, no issues reported to me. Patient is nonverbal. Imaging, nursing note, chart, labs and old chart reviewed. Hospitalist Physical - Physical exam Narrative exam: GEN: Chronic debilitated, cachectic, NAD, eyes closed nonverbal HEENT: NCAT, EOMI, PERRL, OP pasty and dry NECK: no adenopathy, no thyromegaly, no JVD CVS/HEART: Regular tachycardia, NORMAL S1S2, pulses present bilaterally CHEST/LUNGS: Symmetrical chest expansion, good air entry bilaterally GI/Abdomen: soft, ND, PEG tube removed, large left quadrant surgical drs intact , good bowel sounds, no guarding or rebound /Bladder: no grimacing with palp EXT/Skin: Atrophic limbs, sacral dressing intact MSK: Contractures 4 Neuro: Doesn't follow commands, breathing normal overall, maintaining her airway Psych: Confused - Constitutional Vitals: Temp Pulse Resp BP Pulse Ox 97.8 F 73 20 132/76 100 12/23/17 08:27 12/23/17 08:27 12/23/17 08:27 12/23/17 08:27 12/23/17 08:27 Results - Labs CBC & Chem 7: 12/23/17 04:29 12/23/17 04:29 Labs: Laboratory Last Values WBC 17.5 K/mm3 (4.5-11.0) H 12/23/17 04:29 RBC 3.68 M/mm3 (3.65-5.03) 12/23/17 04:29 Hgb 9.4 gm/dl (10.1-14.3) L 12/23/17 04:29 Hct 30.1 % (30.3-42.9) L 12/23/17 04:29 MCV 82 fl (79-97) 12/23/17 04:29 MCH 25 pg (28-32) L 12/23/17 04:29 MCHC 31 % (30-34) 12/23/17 04:29 RDW 20.3 % (13.2-15.2) H 12/23/17 04:29 Plt Count 281 K/mm3 (140-440) 12/23/17 04:29 Lymph % (Auto) 11.1 % (13.4-35.0) L 12/22/17 06:56 [place] % (Auto) 6.6 % (0.0-7.3) 12/22/17 06:56 Eos % (Auto) 1.7 % (0.0-4.3) 12/22/17 06:56 Baso % (Auto) 0.3 % (0.0-1.8) 12/22/17 06:56 Lymph # 1.9 K/mm3 (1.2-5.4) 12/22/17 06:56 [place] # 1.1 K/mm3 (0.0-0.8) H 12/22/17 06:56 Eos # 0.3 K/mm3 (0.0-0.4) 12/22/17 06:56 Baso # 0.1 K/mm3 (0.0-0.1) 12/22/17 06:56 Add Manual Diff Complete 12/21/17 04:14 Total Counted 100 12/21/17 04:14 Seg Neutrophils % 80.3 % (40.0-70.0) H 12/22/17 06:56 Seg Neuts % (Manual) 43.0 % (40.0-70.0) 12/21/17 04:14 Band Neutrophils % 47.0 % 12/21/17 04:14 Lymphocytes % (Manual) 6.0 % (13.4-35.0) L 12/21/17 04:14 Reactive Lymphs % (Man) 0 % 12/21/17 04:14 Monocytes % (Manual) 0 % (0.0-7.3) 12/21/17 04:14 Eosinophils % (Manual) 1.0 % (0.0-4.3) 12/21/17 04:14 Basophils % (Manual) 0 % (0.0-1.8) 12/21/17 04:14 Metamyelocytes % 3.0 % 12/21/17 04:14 Myelocytes % 0 % 12/21/17 04:14 Promyelocytes % 0 % 12/21/17 04:14 Blast Cells % 0 % 12/21/17 04:14 Nucleated RBC % Not Reportable 12/21/17 04:14 Seg Neutrophils # 13.4 K/mm3 (1.8-7.7) H 12/22/17 06:56 Seg Neutrophils # Man 12.4 K/mm3 (1.8-7.7) H 12/21/17 04:14 Band Neutrophils # 13.6 K/mm3 12/21/17 04:14 Lymphocytes # (Manual) 1.7 K/mm3 (1.2-5.4) 12/21/17 04:14 Abs React Lymphs (Man) 0.0 K/mm3 12/21/17 04:14 Monocytes # (Manual) 0.0 K/mm3 (0.0-0.8) 12/21/17 04:14 Eosinophils # (Manual) 0.3 K/mm3 (0.0-0.4) 12/21/17 04:14 Basophils # (Manual) 0.0 K/mm3 (0.0-0.1) 12/21/17 04:14 Metamyelocytes # 0.9 K/mm3 12/21/17 04:14 Myelocytes # 0.0 K/mm3 12/21/17 04:14 Promyelocytes # 0.0 K/mm3 12/21/17 04:14 Blast Cells # 0.0 K/mm3 12/21/17 04:14 WBC Morphology Not Reportable 12/21/17 04:14 Hypersegmented Neuts Not Reportable 12/21/17 04:14 Hyposegmented Neuts Not Reportable 12/21/17 04:14 Hypogranular Neuts Not Reportable 12/21/17 04:14 Smudge Cells Not Reportable 12/21/17 04:14 Toxic Granulation Not Reportable 12/21/17 04:14 Toxic Vacuolation Not Reportable 12/21/17 04:14 Dohle Bodies Few 12/21/17 04:14 Pelger-Huet Anomaly Not Reportable 12/21/17 04:14 Stephany Rods Not Reportable 12/21/17 04:14 Platelet Estimate Appears normal 12/21/17 04:14 Clumped Platelets Not Reportable 12/21/17 04:14 Plt Clumps, EDTA Not Reportable 12/21/17 04:14 Large Platelets Not Reportable 12/21/17 04:14 Giant Platelets Not Reportable 12/21/17 04:14 Platelet Satelliting Not Reportable 12/21/17 04:14 Plt Morphology Comment Not Reportable 12/21/17 04:14 RBC Morphology Not Reportable 12/21/17 04:14 Dimorphic RBCs Not Reportable 12/21/17 04:14 Polychromasia Not Reportable 12/21/17 04:14 Hypochromasia Few 12/21/17 04:14 Poikilocytosis Not Reportable 12/21/17 04:14 Anisocytosis 1+ 12/21/17 04:14 Microcytosis Not Reportable 12/21/17 04:14 Macrocytosis Not Reportable 12/21/17 04:14 Spherocytes Few 12/21/17 04:14 Pappenheimer Bodies Not Reportable 12/21/17 04:14 Sickle Cells Not Reportable 12/21/17 04:14 Target Cells Not Reportable 12/21/17 04:14 Tear Drop Cells Not Reportable 12/21/17 04:14 Ovalocytes Not Reportable 12/21/17 04:14 Helmet Cells Not Reportable 12/21/17 04:14 Gallego-Marmaduke Bodies Not Reportable 12/21/17 04:14 [place] Rings Not Reportable 12/21/17 04:14 [place] Cells Not Reportable 12/21/17 04:14 Bite Cells Not Reportable 12/21/17 04:14 Crenated Cell Not Reportable 12/21/17 04:14 Elliptocytes Not Reportable 12/21/17 04:14 Acanthocytes (Spur) Not Reportable 12/21/17 04:14 Rouleaux Not Reportable 12/21/17 04:14 Hemoglobin C Crystals Not Reportable 12/21/17 04:14 Schistocytes Not Reportable 12/21/17 04:14 Malaria parasites Not Reportable 12/21/17 04:14 Laron Bodies Not Reportable 12/21/17 04:14 Hem Pathologist Commnt No 12/21/17 04:14 PT 16.7 Sec. (12.2-14.9) H 12/19/17 22:00 INR 1.28 (0.87-1.13) H 12/19/17 22:00 APTT 34.3 Sec. (24.2-36.6) 12/19/17 22:00 Sodium 157 mmol/L (137-145) H 12/23/17 04:29 Potassium 3.6 mmol/L (3.6-5.0) 12/23/17 04:29 Chloride 118.6 mmol/L (98-107) H 12/23/17 04:29 Carbon Dioxide 18 mmol/L (22-30) L 12/23/17 04:29 Anion Gap 24 mmol/L 12/23/17 04:29 BUN 95 mg/dL (7-17) H 12/23/17 04:29 Creatinine 3.9 mg/dL (0.7-1.2) H 12/23/17 04:29 Estimated GFR 14 ml/min 12/23/17 04:29 BUN/Creatinine Ratio 24 % 12/23/17 04:29 Glucose 215 mg/dL (65-100) H 12/23/17 04:29 POC Glucose 177 (70-105) H 12/23/17 11:51 Osmolality 375 Mosm/kg 12/20/17 14:36 Lactic Acid 1.40 mmol/L (0.7-2.0) 12/19/17 22:00 Uric Acid 13.4 mg/dL (3.5-7.6) H 12/20/17 14:36 Calcium 8.7 mg/dL (8.4-10.2) 12/23/17 04:29 Total Bilirubin 0.40 mg/dL (0.1-1.2) 12/19/17 22:00 AST 17 units/L (5-40) 12/19/17 22:00 ALT 17 units/L (7-56) 12/19/17 22:00 Alkaline Phosphatase 111 units/L (35-129) 12/19/17 22:00 Total Creatine Kinase 238 units/L (30-135) H 12/20/17 14:36 C-Reactive Protein 37.50 mg/dL (0.00-1.30) H 12/21/17 Unknown Total Protein 8.1 g/dL (6.3-8.2) 12/19/17 22:00 Albumin 2.9 g/dL (3.9-5) L 12/19/17 22:00 Albumin/Globulin Ratio 0.6 % 12/19/17 22:00 Urine Color Yellow (Yellow) 12/20/17 17:00 Urine Turbidity Cloudy (Clear) 12/20/17 17:00 Urine pH 5.0 (5.0-7.0) 12/20/17 17:00 Ur Specific [place] 1.013 (1.003-1.030) 12/20/17 17:00 Urine Protein 100 mg/dl mg/dL (Negative) 12/20/17 17:00 Urine Glucose (UA) Neg mg/dL (Negative) 12/20/17 17:00 Urine Ketones Neg mg/dL (Negative) 12/20/17 17:00 Urine Blood Mod (Negative) 12/20/17 17:00 Urine Nitrite Neg (Negative) 12/20/17 17:00 Urine Bilirubin Neg (Negative) 12/20/17 17:00 Urine Urobilinogen < 2.0 mg/dL (<2.0) 12/20/17 17:00 Ur Leukocyte Esterase Neg (Negative) 12/20/17 17:00 Urine WBC (Auto) 20.0 /HPF (0.0-6.0) H 12/20/17 17:00 Urine RBC (Auto) 15.0 /HPF (0.0-6.0) 12/20/17 17:00 Urine Mucus Few /HPF 12/20/17 17:00 Urine Creatinine 90.2 mg/dL (0.1-20.0) H 12/20/17 17:00 Urine Sodium 46 mmol/L 12/20/17 17:00 Urine Total Protein 91 mg/dL (5-11.8) H 12/20/17 17:00 Blood Type O POSITIVE 12/21/17 17:11 Antibody Screen Negative 12/21/17 17:11 Crossmatch See Detail 12/21/17 17:11
--- NOTE | 2017-12-23 15:54 | XRay Report ---
FINAL REPORT PROCEDURE: XR CHEST 1V AP TECHNIQUE: Chest radiograph anteroposterior view. CPT 49099 HISTORY: sepsis COMPARISON: 12/19/2017 FINDINGS: Heart: Normal. Mediastinum/Vessels: Normal. Lungs/Pleural space: Normal. Bony thorax: No acute osseous abnormality. Life support devices: Enteric tube tip is in the upper abdomen. IMPRESSION: No radiographic evidence of acute cardiopulmonary abnormality.
--- NOTE | 2017-12-23 15:57 | Progress Note ---
Assessment and Plan 67 yo F with abdominal wall abscess s/p s/p I&D of abdominal wall abscess - 3/ POD#2 Plan: 1. continue daily dressing changes by nursing - D/W patient's nurse Zelda 2. continue TF via dobhoff, optimize nutrition 3. PRN pain control 4. trend WBC 5. continue abx 6. wound nurse consult placed for placement of wound vac Thank you for this consultations, please call with any questions or concerns. Subjective Date of service: 12/23/17 Narrative: Pt seen and examined. Patient's sister at the bedside. No overnight events. No acute issues per nursing. Afebrile. Tolerating tube feeds. Objective Vital Signs - 12hr 12/23/17 12/23/17 12/23/17 04: 08:27 10:00 Temperature 97.5 F L 97.8 F Pulse Rate 73 73 Respiratory 18 20 Rate Blood Pressure 142/83 132/76 O2 Sat by Pulse 100 100 100 Oximetry - General physical appearance Narrative Exam: Gen: Eyes open but does not respond ENT: Dobhoff in place with TF running CV: S1, S2+ Resp: no audible wheezes Abd: soft, NT, LUQ dressing c/d/i Micro: Gram neg rods, enterococcus - Labs 12/23/17 04:29 12/23/17 04:29 Diabetes panel 12/23/17 Range/Units 04:29 Sodium 157 H (137-145) mmol/L Potassium 3.6 (3.6-5.0) mmol/L Chloride 118.6 H (98-107) mmol/L Carbon Dioxide 18 L (22-30) mmol/L BUN 95 H (7-17) mg/dL Creatinine 3.9 H (0.7-1.2) mg/dL Glucose 215 H (65-100) mg/dL Calcium 8.7 (8.4-10.2) mg/dL Calcium panel 12/23/17 Range/Units 04:29 Calcium 8.7 (8.4-10.2) mg/dL Pituitary panel 12/23/17 Range/Units 04:29 Sodium 157 H (137-145) mmol/L Potassium 3.6 (3.6-5.0) mmol/L Chloride 118.6 H (98-107) mmol/L Carbon Dioxide 18 L (22-30) mmol/L BUN 95 H (7-17) mg/dL Creatinine 3.9 H (0.7-1.2) mg/dL Glucose 215 H (65-100) mg/dL Calcium 8.7 (8.4-10.2) mg/dL Adrenal panel 12/23/17 Range/Units 04:29 Sodium 157 H (137-145) mmol/L Potassium 3.6 (3.6-5.0) mmol/L Chloride 118.6 H (98-107) mmol/L Carbon Dioxide 18 L (22-30) mmol/L BUN 95 H (7-17) mg/dL Creatinine 3.9 H (0.7-1.2) mg/dL Glucose 215 H (65-100) mg/dL Calcium 8.7 (8.4-10.2) mg/dL
[2017-12-24] MEDS: ZOSYN/NS 2.25 GM/50ML 2.25 GM/50 ML BAG IV SCH ×3 (01:09→17:25)
[2017-12-24] MEDS: NOVOLOG SUB-Q SCH ×4 (01:24→17:31)
[2017-12-24] MEDS: KCL 20 MEQ in D5W 1,000 ML IV SCH (02:45)
[2017-12-24] MEDS: ZYVOX 600MG/300ML 600 MG/300 ML BAG IV SCH ×2 (07:42→21:57)
--- NOTE | 2017-12-24 09:31 | Progress Note ---
Assessment and Plan Assessment: * Acute kidney injury secondary to prerenal azotemia --Baseline SCr 1.0mg/dL --Renal u/s: no hydronephrosis * Hypernatremia * AMS * Malfunctioning PEG w/ RUQ soft tissue infection * Leukocytosis - blood/urine cx NGTD. Abdominal wound culture growing enterococcus species * Anemia * Atrial fibrillation * CVA * Dementia Plan: * Today's labs are still pending. Her urine output seems to be however improving. D5W infusing at 100 mL an hour. * Shall monitor her renal function and electrolytes closely. * Abx per ID * Transfuse pRBC per primary team * Strict I/O * Dose medications for renal function * Avoid potential nephrotoxin * Patient's sister's contact number is [phone]. Subjective Date of service: 12/24/17 Principal diagnosis: sepsis Interval history: Patient is currently nonverbal. On Ventimask with 35% FiO2. Dobbhoff tube also in place. Objective - Vital Signs Vital signs: Vital Signs - 12hr 12/24/17 12/24/17 12/24/17 04:43 04:46 08:17 Temperature 97.8 F Pulse Rate 80 Respiratory 22 20 Rate Blood Pressure 124/78 O2 Sat by Pulse 100 100 100 Oximetry 12/24/17 08:25 Temperature 98.8 F Pulse Rate 78 Respiratory 20 Rate Blood Pressure 137/79 O2 Sat by Pulse 100 Oximetry - General Appearance General appearance: well-developed, well-nourished, appears stated age EENT: PERRL, mucous membranes moist Neck: no JVD, no thyromegaly, no carotid bruit, supple Respiratory: Present: Clear to Ascultation Cardiology: regular, normal heart rate, S1S2, no murmurs Gastrointestinal: normoactive bowel sounds, other (dressing noted in her epigastric area) Integumentary: no rash, other (no edema) - Lab 12/23/17 04:29 12/23/17 04:29 Most recent lab results Calcium 8.7 mg/dL (8.4-10.2) 12/23/17 04:29 Urine Creatinine 90.2 mg/dL (0.1-20.0) H 12/20/17 17:00 Urine Sodium 46 mmol/L 12/20/17 17:00 Urine Total Protein 91 mg/dL (5-11.8) H 12/20/17 17:00
[2017-12-24] MEDS: DAKIN'S HALF STRENGTH TP SCH (10:19)
[2017-12-24] MEDS: ALPHAGAN P 0.15% OU SCH ×2 (10:19→21:57)
--- NOTE | 2017-12-24 11:48 | Progress Note ---
Assessment and Plan Assessment: 1) Sepsis: better still wbc 17K. Etiology most likely complicated PEG site soft tissue infection +/- preseumed pneumonia 2) Complicated PEG site at RUQ soft tissue infection: abdominal Cellulitis / Abscess -Abdominal CT showed extensive inflammatory changes and SQ air in the RUQ abdominal wall. -s/p OR debridement on 12/21 large amount of infected SQ tissue with some necrosis, NO fascial necrosis seen per surgery. -OR cultures Entrococcus and GNRs -CRP=37 3) Encephalopathy: from sepsis / hypernatremia 4) HOA - better 5) Dementia 6) CVA with disphagia s/p PEG, UA leukocyte esterase neg and 20 white blood cells. 7) Presumed pneumonia: CXR presumed LLL infiltrate 8) Hypernatremia - better Plan: -f/u OR cultures which are growing Entrococcus and GNRs -continue zosyn - day 4 -stop linezolid - no evidence of MRSA -contact isolation until MDR is r/o Thank you for your consultation, will follow up with you. Malaika Vang MD Infectious Diseases Specialist [facility] ([facility] M [phone] O [phone] Subjective Date of service: 12/24/17 Principal diagnosis: sepsis Interval history: Remains somnolent, no fever. no need for pressors. Went to the OR yesterday Microbiology: Blood cultures: 12/19 neg Urine cultures: 12/19 neg OR cultures: Gram stain GPC in chains and GVC Current Antimicrobials: zyvox / zosyn / Previous Antimicrobials: Levaquin 12/19 ceftriaxone Objective - Exam Narrative Exam: General appearance: somnolent in NAD, non conversant NC mask Eyes: anicteric sclerae, moist conjunctivae; no lid-lag; PERRLA HENT: Atraumatic; oropharynx limited Neck: Trachea midline; supple, no thyromegaly or lymphadenopathy Lungs: scattered jesus crackles CV: tachy Abdomen: Soft, +RUQ site with surg dressings Extremities: jesus contracted Skin: Normal temperature, turgor and texture; no rash, ulcers or subcutaneous nodules Psych: non verbal. Neuro: non verbal contracted leg Lines: - Constitutional Vitals: Vital Signs Temp Pulse Resp BP Pulse Ox 98.8 F 78 20 137/79 96 12/24/17 08:25 12/24/17 08:25 12/24/17 08:25 12/24/17 08:25 12/24/17 10:00 Temperature -Last 24 Hours Temperature 98.8 F Temperature 97.8 F Temperature 97.6 F Temperature 97.7 F - Labs CBC & Chem 7: 12/23/17 04:29 12/23/17 04:29 Labs: Abnormal lab results 12/23/17 12/23/17 12/24/17 Range/Units 11:51 16:41 01:18 POC Glucose 177 H 223 H 247 H (70-105) 12/24/17 Range/Units 07:17 POC Glucose 258 H (70-105)
--- NOTE | 2017-12-24 12:30 | Progress Note ---
Assessment and Plan 67 yo F with abdominal wall abscess s/p s/p I&D of abdominal wall abscess - 3/ POD#3 Plan: 1. d/w Niki - managed care liaison - will evaluate patient for wound vac 2. continue TF via dobhoff, optimize nutrition 3. PRN pain control 4. trend WBC 5. continue abx - cultures MRSA, enterococcus, klebsiella. D/W Dr. Ojeda. Thank you for this consultations, please call with any questions or concerns. Subjective Date of service: 12/24/17 Objective Vital Signs - 12hr 12/24/17 12/24/17 12/24/17 04:43 04:46 08:17 Temperature 97.8 F Pulse Rate 80 Respiratory 22 20 Rate Blood Pressure 124/78 O2 Sat by Pulse 100 100 100 Oximetry 12/24/17 12/24/17 08:25 10:00 Temperature 98.8 F Pulse Rate 78 Respiratory 20 Rate Blood Pressure 137/79 O2 Sat by Pulse 100 96 Oximetry - General physical appearance Narrative Exam: Gen: Minimally responsive, does not follow commands ENT: dobhoff with TF running CV: s1, S2+ Resp: even and unlabored Abd: soft, NT, ND. wound edges and base clean, no drainage, no necrotic tissue. - Labs 12/23/17 04:29 12/23/17 04:29
--- NOTE | 2017-12-24 13:56 | Progress Note ---
Assessment and Plan Assessment and plan: Patient is a 67-year-old woman who is a [facility] resident has [facility] with a plethora of severe comorbidities including advanced dementia with contractures, hypertension, type 2 diabetes mellitus, glaucoma, cataracts, blind, atrial fibrillation, sacral decubitus pressure ulcer , CVA with aphasia/dysphagia status post PEG tube and quadriplegia/bed bound state who presented to [facility] emergency department with worsen AMS, hypernatremia and PEG leakage with possible replacement pCXR reported as limited exam due to position CT abd/pelvis wo contrast IMPRESSION: Gastrostomy tube is within the anterior abdominal wall with extensive changes of inflammation. Due to the presence of air any underlying infection cannot be excluded. Renal U/S reported no acute findings -Sepsis from abdominal wall abscess from PEG tube, poa, s/p i-n-d on 12/21/17, wbc better -Acute metabolic encephalopathy: Treat the hypernatremia -Hypernatremia: Treat with hypotonic solution -Hypokalemia: Replace and recheck a.m. -Suspect severe malnutrition: Consult [employer] -UTI present on admission: Continue IV antibiotics -Malfunction PEG: GI consulted -ARF, vasomotor nephropathy, poa, Cr was 1.0 on 2016: Consult nephrology, get renal u/s -Sacral pressure ulcer present on admission: Consult and discussed wound care nurse DNR per chart 12/20/17. suspected UTI w/ sepsis, unable to get UA specimen, will start treatment. d/w nursing to straight cath for UA 12/21/17: Continue IV antibiotics, await urine culture, Consulted infectious disease, worsening white blood cell count of 28.9k, GI and renal to evaluate, ID called me and concerned about necrotizing fascitis at PEG site. So, i called and spoke with Dr. Ascencio and we evaluated the patient together, patient went immediately to surgery after consent obtained. She received 1 unit of prbc transfusion, she was sent to ICU for overnight monitoring, she was successfully extubated prior to icu arrival. 12/22/17: Clinically much better, wbc is decreasing. will continue to monitor and treat with iv abx, will transfer back to floor. 12/23/17: WBC went up, get pCXR, treat with nebs and continue abx 12/24/17: It appears zyvox was stopped by ID, wbc increased, wound cultures showing mrsa; therefore, zyvox restarted. Will order am labs. Continue dobhuff for nutrition, but the clerk supervisor plan will be based off wound healing and Surgery clearance History Interval history: Patient was seen and examined. Follow-up on current diagnosis altered mental status still present. Overnight uneventful, no issues reported to me. Patient is nonverbal. Imaging, nursing note, chart, labs and old chart reviewed. Hospitalist Physical - Physical exam Narrative exam: GEN: Chronic debilitated, cachectic, NAD, eyes closed nonverbal HEENT: NCAT, EOMI, PERRL, OP pasty and dry NECK: no adenopathy, no thyromegaly, no JVD CVS/HEART: Regular tachycardia, NORMAL S1S2, pulses present bilaterally CHEST/LUNGS: Symmetrical chest expansion, good air entry bilaterally GI/Abdomen: soft, ND, PEG tube removed, large left quadrant surgical drs intact , good bowel sounds, no guarding or rebound /Bladder: no grimacing with palp EXT/Skin: Atrophic limbs, sacral dressing intact MSK: Contractures 4 Neuro: Doesn't follow commands, breathing normal overall, maintaining her airway Psych: Confused - Constitutional Vitals: Temp Pulse Resp BP Pulse Ox 98.8 F 78 20 137/79 96 12/24/17 08:25 12/24/17 08:25 12/24/17 08:25 12/24/17 08:25 12/24/17 10:00 Results - Labs CBC & Chem 7: 12/23/17 04:29 12/23/17 04:29 Labs: Laboratory Last Values WBC 17.5 K/mm3 (4.5-11.0) H 12/23/17 04:29 RBC 3.68 M/mm3 (3.65-5.03) 12/23/17 04:29 Hgb 9.4 gm/dl (10.1-14.3) L 12/23/17 04:29 Hct 30.1 % (30.3-42.9) L 12/23/17 04:29 MCV 82 fl (79-97) 12/23/17 04:29 MCH 25 pg (28-32) L 12/23/17 04:29 MCHC 31 % (30-34) 12/23/17 04:29 RDW 20.3 % (13.2-15.2) H 12/23/17 04:29 Plt Count 281 K/mm3 (140-440) 12/23/17 04:29 Lymph % (Auto) 11.1 % (13.4-35.0) L 12/22/17 06:56 [place] % (Auto) 6.6 % (0.0-7.3) 12/22/17 06:56 Eos % (Auto) 1.7 % (0.0-4.3) 12/22/17 06:56 Baso % (Auto) 0.3 % (0.0-1.8) 12/22/17 06:56 Lymph # 1.9 K/mm3 (1.2-5.4) 12/22/17 06:56 [place] # 1.1 K/mm3 (0.0-0.8) H 12/22/17 06:56 Eos # 0.3 K/mm3 (0.0-0.4) 12/22/17 06:56 Baso # 0.1 K/mm3 (0.0-0.1) 12/22/17 06:56 Add Manual Diff Complete 12/21/17 04:14 Total Counted 100 12/21/17 04:14 Seg Neutrophils % 80.3 % (40.0-70.0) H 12/22/17 06:56 Seg Neuts % (Manual) 43.0 % (40.0-70.0) 12/21/17 04:14 Band Neutrophils % 47.0 % 12/21/17 04:14 Lymphocytes % (Manual) 6.0 % (13.4-35.0) L 12/21/17 04:14 Reactive Lymphs % (Man) 0 % 12/21/17 04:14 Monocytes % (Manual) 0 % (0.0-7.3) 12/21/17 04:14 Eosinophils % (Manual) 1.0 % (0.0-4.3) 12/21/17 04:14 Basophils % (Manual) 0 % (0.0-1.8) 12/21/17 04:14 Metamyelocytes % 3.0 % 12/21/17 04:14 Myelocytes % 0 % 12/21/17 04:14 Promyelocytes % 0 % 12/21/17 04:14 Blast Cells % 0 % 12/21/17 04:14 Nucleated RBC % Not Reportable 12/21/17 04:14 Seg Neutrophils # 13.4 K/mm3 (1.8-7.7) H 12/22/17 06:56 Seg Neutrophils # Man 12.4 K/mm3 (1.8-7.7) H 12/21/17 04:14 Band Neutrophils # 13.6 K/mm3 12/21/17 04:14 Lymphocytes # (Manual) 1.7 K/mm3 (1.2-5.4) 12/21/17 04:14 Abs React Lymphs (Man) 0.0 K/mm3 12/21/17 04:14 Monocytes # (Manual) 0.0 K/mm3 (0.0-0.8) 12/21/17 04:14 Eosinophils # (Manual) 0.3 K/mm3 (0.0-0.4) 12/21/17 04:14 Basophils # (Manual) 0.0 K/mm3 (0.0-0.1) 12/21/17 04:14 Metamyelocytes # 0.9 K/mm3 12/21/17 04:14 Myelocytes # 0.0 K/mm3 12/21/17 04:14 Promyelocytes # 0.0 K/mm3 12/21/17 04:14 Blast Cells # 0.0 K/mm3 12/21/17 04:14 WBC Morphology Not Reportable 12/21/17 04:14 Hypersegmented Neuts Not Reportable 12/21/17 04:14 Hyposegmented Neuts Not Reportable 12/21/17 04:14 Hypogranular Neuts Not Reportable 12/21/17 04:14 Smudge Cells Not Reportable 12/21/17 04:14 Toxic Granulation Not Reportable 12/21/17 04:14 Toxic Vacuolation Not Reportable 12/21/17 04:14 Dohle Bodies Few 12/21/17 04:14 Pelger-Huet Anomaly Not Reportable 12/21/17 04:14 Stephany Rods Not Reportable 12/21/17 04:14 Platelet Estimate Appears normal 12/21/17 04:14 Clumped Platelets Not Reportable 12/21/17 04:14 Plt Clumps, EDTA Not Reportable 12/21/17 04:14 Large Platelets Not Reportable 12/21/17 04:14 Giant Platelets Not Reportable 12/21/17 04:14 Platelet Satelliting Not Reportable 12/21/17 04:14 Plt Morphology Comment Not Reportable 12/21/17 04:14 RBC Morphology Not Reportable 12/21/17 04:14 Dimorphic RBCs Not Reportable 12/21/17 04:14 Polychromasia Not Reportable 12/21/17 04:14 Hypochromasia Few 12/21/17 04:14 Poikilocytosis Not Reportable 12/21/17 04:14 Anisocytosis 1+ 12/21/17 04:14 Microcytosis Not Reportable 12/21/17 04:14 Macrocytosis Not Reportable 12/21/17 04:14 Spherocytes Few 12/21/17 04:14 Pappenheimer Bodies Not Reportable 12/21/17 04:14 Sickle Cells Not Reportable 12/21/17 04:14 Target Cells Not Reportable 12/21/17 04:14 Tear Drop Cells Not Reportable 12/21/17 04:14 Ovalocytes Not Reportable 12/21/17 04:14 Helmet Cells Not Reportable 12/21/17 04:14 [place] Bodies Not Reportable 12/21/17 04:14 [place] Rings Not Reportable 12/21/17 04:14 [place] Cells Not Reportable 12/21/17 04:14 Bite Cells Not Reportable 12/21/17 04:14 Crenated Cell Not Reportable 12/21/17 04:14 Elliptocytes Not Reportable 12/21/17 04:14 Acanthocytes (Spur) Not Reportable 12/21/17 04:14 Rouleaux Not Reportable 12/21/17 04:14 Hemoglobin C Crystals Not Reportable 12/21/17 04:14 Schistocytes Not Reportable 12/21/17 04:14 Malaria parasites Not Reportable 12/21/17 04:14 Laron Bodies Not Reportable 12/21/17 04:14 Hem Pathologist Commnt No 12/21/17 04:14 PT 16.7 Sec. (12.2-14.9) H 12/19/17 22:00 INR 1.28 (0.87-1.13) H 12/19/17 22:00 APTT 34.3 Sec. (24.2-36.6) 12/19/17 22:00 Sodium 157 mmol/L (137-145) H 12/23/17 04:29 Potassium 3.6 mmol/L (3.6-5.0) 12/23/17 04:29 Chloride 118.6 mmol/L (98-107) H 12/23/17 04:29 Carbon Dioxide 18 mmol/L (22-30) L 12/23/17 04:29 Anion Gap 24 mmol/L 12/23/17 04:29 BUN 95 mg/dL (7-17) H 12/23/17 04:29 Creatinine 3.9 mg/dL (0.7-1.2) H 12/23/17 04:29 Estimated GFR 14 ml/min 12/23/17 04:29 BUN/Creatinine Ratio 24 % 12/23/17 04:29 Glucose 215 mg/dL (65-100) H 12/23/17 04:29 POC Glucose 258 (70-105) H 12/24/17 07:17 Osmolality 375 Mosm/kg 12/20/17 14:36 Lactic Acid 1.40 mmol/L (0.7-2.0) 12/19/17 22:00 Uric Acid 13.4 mg/dL (3.5-7.6) H 12/20/17 14:36 Calcium 8.7 mg/dL (8.4-10.2) 12/23/17 04:29 Total Bilirubin 0.40 mg/dL (0.1-1.2) 12/19/17 22:00 AST 17 units/L (5-40) 12/19/17 22:00 ALT 17 units/L (7-56) 12/19/17 22:00 Alkaline Phosphatase 111 units/L (35-129) 12/19/17 22:00 Total Creatine Kinase 238 units/L (30-135) H 12/20/17 14:36 C-Reactive Protein 37.50 mg/dL (0.00-1.30) H 12/21/17 Unknown Total Protein 8.1 g/dL (6.3-8.2) 12/19/17 22:00 Albumin 2.9 g/dL (3.9-5) L 12/19/17 22:00 Albumin/Globulin Ratio 0.6 % 12/19/17 22:00 Urine Color Yellow (Yellow) 12/20/17 17:00 Urine Turbidity Cloudy (Clear) 12/20/17 17:00 Urine pH 5.0 (5.0-7.0) 12/20/17 17:00 Ur Specific [place] 1.013 (1.003-1.030) 12/20/17 17:00 Urine Protein 100 mg/dl mg/dL (Negative) 12/20/17 17:00 Urine Glucose (UA) Neg mg/dL (Negative) 12/20/17 17:00 Urine Ketones Neg mg/dL (Negative) 12/20/17 17:00 Urine Blood Mod (Negative) 12/20/17 17:00 Urine Nitrite Neg (Negative) 12/20/17 17:00 Urine Bilirubin Neg (Negative) 12/20/17 17:00 Urine Urobilinogen < 2.0 mg/dL (<2.0) 12/20/17 17:00 Ur Leukocyte Esterase Neg (Negative) 12/20/17 17:00 Urine WBC (Auto) 20.0 /HPF (0.0-6.0) H 12/20/17 17:00 Urine RBC (Auto) 15.0 /HPF (0.0-6.0) 12/20/17 17:00 Urine Mucus Few /HPF 12/20/17 17:00 Urine Creatinine 90.2 mg/dL (0.1-20.0) H 12/20/17 17:00 Urine Sodium 46 mmol/L 12/20/17 17:00 Urine Total Protein 91 mg/dL (5-11.8) H 12/20/17 17:00 Blood Type O POSITIVE 12/21/17 17:11 Antibody Screen Negative 12/21/17 17:11 Crossmatch See Detail 12/21/17 17:11
[2017-12-25] MEDS: NOVOLOG SUB-Q SCH ×4 (00:09→18:13)
[2017-12-25] MEDS: ZOSYN/NS 2.25 GM/50ML 2.25 GM/50 ML BAG IV SCH (02:19)
[2017-12-25 06:10] LABS: Hematocrit 31.4 % (30.3-42.9); Hemoglobin 9.8 gm/dl (10.1-14.3); Mean Corpuscular HGB Conc 31 % (30-34); Mean Corpuscular Volume 82 fl (79-97); Platelet Count 278 K/mm3 (140-440); Red Blood Count 3.82 M/mm3 (3.65-5.03)
[2017-12-25 06:11] LABS: Mean Corpuscular Hemoglobin 26 pg (28-32); Red Cell Distribution Width 20.1 % (13.2-15.2)
[2017-12-25 06:28] LABS: Calcium 8.6 mg/dL (8.4-10.2)
--- NOTE | 2017-12-25 09:12 | Progress Note ---
Assessment and Plan Assessment: 1) Sepsis: better still wbc 17K. Etiology most likely complicated PEG site soft tissue infection +/- preseumed pneumonia 2) Complicated PEG site at RUQ soft tissue infection: abdominal Cellulitis / Abscess -Abdominal CT showed extensive inflammatory changes and SQ air in the RUQ abdominal wall. -s/p OR debridement on 12/21 large amount of infected SQ tissue with some necrosis, NO fascial necrosis seen per surgery. -OR cultures + ESBL Kleb, MRSA, E faecalis and GNR -CRP=37 3) Encephalopathy: from sepsis / hypernatremia 4) HOA - better 5) Dementia 6) CVA with disphagia s/p PEG, UA leukocyte esterase neg and 20 white blood cells. 7) Presumed pneumonia: CXR presumed LLL infiltrate 8) Hypernatremia - better Plan: -stop zosyn - day 5 -start meropenem to cover ESBL Kleb - renally dosed -continue zyvox -contact isolation due to ESBL and MRSA -upon discharge will do meropenem 1 g V q12h and zyvox 600 mg PO q 12h total 2 weeks until 01/08 to cover all isolates-ESBL, MRSA, E faecalis and GNRs -OPAT orders sent to major case detective -place a PICC -aggressive wound care Thank you for your consultation, will follow up with you. Malaika Vang MD Infectious Diseases Specialist [facility] [phone] Subjective Date of service: 12/25/17 Principal diagnosis: sepsis Interval history: More alert, no fever. Microbiology: Blood cultures: 12/19 neg Urine cultures: 12/19 neg OR cultures: ESBL Kleb, MRSA, E faecalis and GNR Current Antimicrobials: zyvox 12/21 zosyn 12/21 Previous Antimicrobials: Levaquin 12/19 ceftriaxone Objective - Exam Narrative Exam: General appearance: alert in NAD, non conversant Eyes: anicteric sclerae, moist conjunctivae; no lid-lag; PERRLA HENT: Atraumatic; oropharynx limited +NGT Neck: Trachea midline; supple, no thyromegaly or lymphadenopathy Lungs: CTAbil CV: tachy Abdomen: Soft, +RUQ site with surg dressings Extremities: jesus contracted Skin: Normal temperature, turgor and texture; no rash, ulcers or subcutaneous nodules Psych: non verbal. Neuro: non verbal contracted leg Lines: - Constitutional Vitals: Vital Signs Temp Pulse Resp BP Pulse Ox 97.5 F L 89 18 116/79 98 12/25/17 03:52 12/24/17 19:33 12/25/17 03:52 12/25/17 03:52 12/24/17 22:00 Temperature -Last 24 Hours Temperature 97.5 F Temperature 97.9 F Temperature 98.2 F - Labs CBC & Chem 7: 12/25/17 04:59 12/25/17 04:59 Labs: Abnormal lab results 12/24/17 12/24/17 12/24/17 Range/Units 13:55 16:54 23:37 Hgb (10.1-14.3) gm/dl MCH (28-32) pg RDW (13.2-15.2) % Sodium (137-145) mmol/L Potassium (3.6-5.0) mmol/L Chloride (98-107) mmol/L Carbon Dioxide (22-30) mmol/L BUN (7-17) mg/dL Creatinine (0.7-1.2) mg/dL Glucose (65-100) mg/dL POC Glucose 234 H 235 H 269 H (70-105) 12/25/17 12/25/17 12/25/17 Range/Units 04:59 04:59 06:25 Hgb 9.8 L (10.1-14.3) gm/dl MCH 26 L (28-32) pg RDW 20.1 H (13.2-15.2) % Sodium 150 H (137-145) mmol/L Potassium 3.5 L (3.6-5.0) mmol/L Chloride 115.7 H (98-107) mmol/L Carbon Dioxide 19 L (22-30) mmol/L BUN 80 H (7-17) mg/dL Creatinine 3.3 H (0.7-1.2) mg/dL Glucose 203 H (65-100) mg/dL POC Glucose 208 H (70-105)
--- NOTE | 2017-12-25 09:22 | Progress Note ---
Assessment and Plan Assessment: * Acute kidney injury secondary to prerenal azotemia --Baseline SCr 1.0mg/dL --Renal u/s: no hydronephrosis * Hypernatremia * AMS * Malfunctioning PEG w/ RUQ soft tissue infection * Leukocytosis - blood/urine cx NGTD. Abdominal wound culture growing enterococcus species * Anemia * Atrial fibrillation * CVA * Dementia Plan: * Her renal function seems to be slowly improving. * He is still hypernatremic. Continue IV fluid with D5W . * Shall monitor her renal function and electrolytes closely. * Abx per ID * Transfuse pRBC per primary team * Strict I/O * Dose medications for renal function * Avoid potential nephrotoxin * Patient's sister's contact number is [phone]. Subjective Date of service: 12/25/17 Principal diagnosis: sepsis Interval history: Patient appears comfortable today. Currently on Ventimask with 35% FiO2 Objective - Vital Signs Vital signs: Vital Signs - 12hr 12/24/17 12/25/17 22:00 03:52 Temperature 97.5 F L Respiratory 18 18 Rate Blood Pressure 116/79 O2 Sat by Pulse 98 Oximetry - General Appearance General appearance: well-developed, well-nourished, appears stated age EENT: PERRL, mucous membranes moist Neck: no JVD, no thyromegaly, no carotid bruit, supple Respiratory: Present: Ronchi (few scattered rhonchi) Cardiology: irregularly irregular, normal heart rate, S1S2, no murmurs Gastrointestinal: normoactive bowel sounds, other (dressing noted in her epigastric area) Integumentary: other (no edema. Left foot wrapped with a bandage) - Lab 12/25/17 04:59 12/25/17 04:59 Most recent lab results Calcium 8.6 mg/dL (8.4-10.2) 12/25/17 04:59 Urine Creatinine 90.2 mg/dL (0.1-20.0) H 12/20/17 17:00 Urine Sodium 46 mmol/L 12/20/17 17:00 Urine Total Protein 91 mg/dL (5-11.8) H 12/20/17 17:00
--- NOTE | 2017-12-25 09:52 | Event Note ---
Date: 12/25/17 Wound vac placed by Niki Mckeon RN (wound care) yesterday. Will continue to follow progress of wound and perform wound vac changes per RN. Continue TF to optimize nutrition.
[2017-12-25] MEDS: ALPHAGAN P 0.15% OU SCH ×2 (09:54→21:41)
[2017-12-25] MEDS: MERREM 1,000 MG in NACL 0.9% 100 ML IV SCH ×2 (09:54→21:40)
[2017-12-25] MEDS: DAKIN'S HALF STRENGTH TP SCH (10:00)
[2017-12-25] MEDS: ZYVOX 600MG/300ML 600 MG/300 ML BAG IV SCH ×2 (10:10→21:40)
--- NOTE | 2017-12-25 10:39 | Progress Note ---
Assessment and Plan Assessment and plan: Sepsis. WBC resolvedEtiology most likely complicated PEG site soft tissue infection +/- preseumed pneumonia Complicated PEG site at RUQ soft tissue infection: abdominal Cellulitis / Abscess. Abdominal CT showed extensive inflammatory changes and SQ air in the RUQ abdominal wall. Pt. is s/p OR debridement on 12/21 large amount of infected SQ tissue with some necrosis, NO fascial necrosis seen per surgery. OR cultures + ESBL Kleb, MRSA, E faecalis and GNR. Zosyn discontinued and ID started meropenem to cover ESBL Kleb - renally dosed. Cont. Zyvox . Contact isolation due to ESBL and MRSA -upon discharge will do meropenem 1 g V q12h and zyvox 600 mg PO q 12h total 2 weeks until 01/08 to cover all isolates-ESBL, MRSA, E faecalis and GNRs Encephalopathy: from sepsis / hypernatremia HOA - better. Baseline SCr 1.0mg/dL. Renal u/s: no hydronephrosis. Continue IV fluid with D5W Dementia CVA with disphagia s/p PEG, UA leukocyte esterase neg and 20 white blood cells. LLL pneumonia. CXR presumed LLL infiltrate. Cont. abx Hypernatremia - better. F/U BMP History Interval history: No new issues Hospitalist Physical - Constitutional Vitals: Temp Pulse Resp BP Pulse Ox 98.9 F 87 20 125/75 100 12/25/17 08:07 12/25/17 08:07 12/25/17 08:07 12/25/17 08:07 12/25/17 08:07 General appearance: Present: no acute distress, well-nourished - EENT Eyes: Present: PERRL, EOM intact ENT: hearing intact, clear oral mucosa, dentition normal - Neck Neck: Present: supple, normal ROM - Respiratory Respiratory effort: normal Respiratory: bilateral: CTA - Cardiovascular Rhythm: regular Heart Sounds: Present: S1 & S2. Absent: gallop, rub - Extremities Extremities: no ischemia, No edema, Full ROM - Abdominal General gastrointestinal: soft, non-tender, non-distended, normal bowel sounds - Integumentary Integumentary: Present: clear, warm, dry - Neurologic Neurologic: CNII-XII intact, moves all extremities Results - Labs CBC & Chem 7: 12/25/17 04:59 12/25/17 04:59 Labs: Laboratory Last Values WBC 10.0 K/mm3 (4.5-11.0) 12/25/17 04:59 RBC 3.82 M/mm3 (3.65-5.03) 12/25/17 04:59 Hgb 9.8 gm/dl (10.1-14.3) L 12/25/17 04:59 Hct 31.4 % (30.3-42.9) 12/25/17 04:59 MCV 82 fl (79-97) 12/25/17 04:59 MCH 26 pg (28-32) L 12/25/17 04:59 MCHC 31 % (30-34) 12/25/17 04:59 RDW 20.1 % (13.2-15.2) H 12/25/17 04:59 Plt Count 278 K/mm3 (140-440) 12/25/17 04:59 Lymph % (Auto) 11.1 % (13.4-35.0) L 12/22/17 06:56 [place] % (Auto) 6.6 % (0.0-7.3) 12/22/17 06:56 Eos % (Auto) 1.7 % (0.0-4.3) 12/22/17 06:56 Baso % (Auto) 0.3 % (0.0-1.8) 12/22/17 06:56 Lymph # 1.9 K/mm3 (1.2-5.4) 12/22/17 06:56 [place] # 1.1 K/mm3 (0.0-0.8) H 12/22/17 06:56 Eos # 0.3 K/mm3 (0.0-0.4) 12/22/17 06:56 Baso # 0.1 K/mm3 (0.0-0.1) 12/22/17 06:56 Add Manual Diff Complete 12/21/17 04:14 Total Counted 100 12/21/17 04:14 Seg Neutrophils % 80.3 % (40.0-70.0) H 12/22/17 06:56 Seg Neuts % (Manual) 43.0 % (40.0-70.0) 12/21/17 04:14 Band Neutrophils % 47.0 % 12/21/17 04:14 Lymphocytes % (Manual) 6.0 % (13.4-35.0) L 12/21/17 04:14 Reactive Lymphs % (Man) 0 % 12/21/17 04:14 Monocytes % (Manual) 0 % (0.0-7.3) 12/21/17 04:14 Eosinophils % (Manual) 1.0 % (0.0-4.3) 12/21/17 04:14 Basophils % (Manual) 0 % (0.0-1.8) 12/21/17 04:14 Metamyelocytes % 3.0 % 12/21/17 04:14 Myelocytes % 0 % 12/21/17 04:14 Promyelocytes % 0 % 12/21/17 04:14 Blast Cells % 0 % 12/21/17 04:14 Nucleated RBC % Not Reportable 12/21/17 04:14 Seg Neutrophils # 13.4 K/mm3 (1.8-7.7) H 12/22/17 06:56 Seg Neutrophils # Man 12.4 K/mm3 (1.8-7.7) H 12/21/17 04:14 Band Neutrophils # 13.6 K/mm3 12/21/17 04:14 Lymphocytes # (Manual) 1.7 K/mm3 (1.2-5.4) 12/21/17 04:14 Abs React Lymphs (Man) 0.0 K/mm3 12/21/17 04:14 Monocytes # (Manual) 0.0 K/mm3 (0.0-0.8) 12/21/17 04:14 Eosinophils # (Manual) 0.3 K/mm3 (0.0-0.4) 12/21/17 04:14 Basophils # (Manual) 0.0 K/mm3 (0.0-0.1) 12/21/17 04:14 Metamyelocytes # 0.9 K/mm3 12/21/17 04:14 Myelocytes # 0.0 K/mm3 12/21/17 04:14 Promyelocytes # 0.0 K/mm3 12/21/17 04:14 Blast Cells # 0.0 K/mm3 12/21/17 04:14 WBC Morphology Not Reportable 12/21/17 04:14 Hypersegmented Neuts Not Reportable 12/21/17 04:14 Hyposegmented Neuts Not Reportable 12/21/17 04:14 Hypogranular Neuts Not Reportable 12/21/17 04:14 Smudge Cells Not Reportable 12/21/17 04:14 Toxic Granulation Not Reportable 12/21/17 04:14 Toxic Vacuolation Not Reportable 12/21/17 04:14 Dohle Bodies Few 12/21/17 04:14 Pelger-Huet Anomaly Not Reportable 12/21/17 04:14 Stephany Rods Not Reportable 12/21/17 04:14 Platelet Estimate Appears normal 12/21/17 04:14 Clumped Platelets Not Reportable 12/21/17 04:14 Plt Clumps, EDTA Not Reportable 12/21/17 04:14 Large Platelets Not Reportable 12/21/17 04:14 Giant Platelets Not Reportable 12/21/17 04:14 Platelet Satelliting Not Reportable 12/21/17 04:14 Plt Morphology Comment Not Reportable 12/21/17 04:14 RBC Morphology Not Reportable 12/21/17 04:14 Dimorphic RBCs Not Reportable 12/21/17 04:14 Polychromasia Not Reportable 12/21/17 04:14 Hypochromasia Few 12/21/17 04:14 Poikilocytosis Not Reportable 12/21/17 04:14 Anisocytosis 1+ 12/21/17 04:14 Microcytosis Not Reportable 12/21/17 04:14 Macrocytosis Not Reportable 12/21/17 04:14 Spherocytes Few 12/21/17 04:14 Pappenheimer Bodies Not Reportable 12/21/17 04:14 Sickle Cells Not Reportable 12/21/17 04:14 Target Cells Not Reportable 12/21/17 04:14 Tear Drop Cells Not Reportable 12/21/17 04:14 Ovalocytes Not Reportable 12/21/17 04:14 Helmet Cells Not Reportable 12/21/17 04:14 [place] Bodies Not Reportable 12/21/17 04:14 [place] Rings Not Reportable 12/21/17 04:14 [place] Cells Not Reportable 12/21/17 04:14 Bite Cells Not Reportable 12/21/17 04:14 Crenated Cell Not Reportable 12/21/17 04:14 Elliptocytes Not Reportable 12/21/17 04:14 Acanthocytes (Spur) Not Reportable 12/21/17 04:14 Rouleaux Not Reportable 12/21/17 04:14 Hemoglobin C Crystals Not Reportable 12/21/17 04:14 Schistocytes Not Reportable 12/21/17 04:14 Malaria parasites Not Reportable 12/21/17 04:14 [place] Bodies Not Reportable 12/21/17 04:14 Hem Pathologist Commnt No 12/21/17 04:14 PT 16.7 Sec. (12.2-14.9) H 12/19/17 22:00 INR 1.28 (0.87-1.13) H 12/19/17 22:00 APTT 34.3 Sec. (24.2-36.6) 12/19/17 22:00 Sodium 150 mmol/L (137-145) H 12/25/17 04:59 Potassium 3.5 mmol/L (3.6-5.0) L 12/25/17 04:59 Chloride 115.7 mmol/L (98-107) H 12/25/17 04:59 Carbon Dioxide 19 mmol/L (22-30) L 12/25/17 04:59 Anion Gap 19 mmol/L 12/25/17 04:59 BUN 80 mg/dL (7-17) H 12/25/17 04:59 Creatinine 3.3 mg/dL (0.7-1.2) H 12/25/17 04:59 Estimated GFR 17 ml/min 12/25/17 04:59 BUN/Creatinine Ratio 24 % 12/25/17 04:59 Glucose 203 mg/dL (65-100) H 12/25/17 04:59 POC Glucose 208 (70-105) H 12/25/17 06:25 Osmolality 375 Mosm/kg 12/20/17 14:36 Lactic Acid 1.40 mmol/L (0.7-2.0) 12/19/17 22:00 Uric Acid 13.4 mg/dL (3.5-7.6) H 12/20/17 14:36 Calcium 8.6 mg/dL (8.4-10.2) 12/25/17 04:59 Total Bilirubin 0.40 mg/dL (0.1-1.2) 12/19/17 22:00 AST 17 units/L (5-40) 12/19/17 22:00 ALT 17 units/L (7-56) 12/19/17 22:00 Alkaline Phosphatase 111 units/L (35-129) 12/19/17 22:00 Total Creatine Kinase 238 units/L (30-135) H 12/20/17 14:36 C-Reactive Protein 37.50 mg/dL (0.00-1.30) H 12/21/17 Unknown Total Protein 8.1 g/dL (6.3-8.2) 12/19/17 22:00 Albumin 2.9 g/dL (3.9-5) L 12/19/17 22:00 Albumin/Globulin Ratio 0.6 % 12/19/17 22:00 Urine Color Yellow (Yellow) 12/20/17 17:00 Urine Turbidity Cloudy (Clear) 12/20/17 17:00 Urine pH 5.0 (5.0-7.0) 12/20/17 17:00 Ur Specific [place] 1.013 (1.003-1.030) 12/20/17 17:00 Urine Protein 100 mg/dl mg/dL (Negative) 12/20/17 17:00 Urine Glucose (UA) Neg mg/dL (Negative) 12/20/17 17:00 Urine Ketones Neg mg/dL (Negative) 12/20/17 17:00 Urine Blood Mod (Negative) 12/20/17 17:00 Urine Nitrite Neg (Negative) 12/20/17 17:00 Urine Bilirubin Neg (Negative) 12/20/17 17:00 Urine Urobilinogen < 2.0 mg/dL (<2.0) 12/20/17 17:00 Ur Leukocyte Esterase Neg (Negative) 12/20/17 17:00 Urine WBC (Auto) 20.0 /HPF (0.0-6.0) H 12/20/17 17:00 Urine RBC (Auto) 15.0 /HPF (0.0-6.0) 12/20/17 17:00 Urine Mucus Few /HPF 12/20/17 17:00 Urine Creatinine 90.2 mg/dL (0.1-20.0) H 12/20/17 17:00 Urine Sodium 46 mmol/L 12/20/17 17:00 Urine Total Protein 91 mg/dL (5-11.8) H 03/01/18 17:00 Blood Type O POSITIVE 12/21/17 17:11 Antibody Screen Negative 12/21/17 17:11 Crossmatch See Detail 12/21/17 17:11
[2017-12-25] MEDS: KCL 20 MEQ in D5W 1,000 ML IV SCH (11:56)
[2017-12-26] MEDS: NOVOLOG SUB-Q SCH ×4 (00:41→20:18)
[2017-12-26] MEDS: KCL 20 MEQ in D5W 1,000 ML IV SCH ×2 (00:53→23:02)
[2017-12-26 05:34] LABS: Basophils # (Auto) 0.1 K/mm3 (0.0-0.1); Basophils % (Auto) 0.8 % (0.0-1.8); Eosinophils # (Auto) 0.3 K/mm3 (0.0-0.4); Eosinophils % (Auto) 2.2 % (0.0-4.3); Hematocrit 28.3 % (30.3-42.9); Hemoglobin 8.9 gm/dl (10.1-14.3); Lymphocytes # (Auto) 2.3 K/mm3 (1.2-5.4); Lymphocytes % (Auto) 17.7 % (13.4-35.0); Mean Corpuscular HGB Conc 32 % (30-34); Mean Corpuscular Volume 81 fl (79-97); Monocytes # (Auto) 0.6 K/mm3 (0.0-0.8); Platelet Count 291 K/mm3 (140-440); Red Blood Count 3.51 M/mm3 (3.65-5.03); Red Cell Distribution Width 19.9 % (13.2-15.2)
[2017-12-26 05:39] LABS: Mean Corpuscular Hemoglobin 26 pg (28-32)
[2017-12-26 05:44] LABS: Calcium 8.4 mg/dL (8.4-10.2)
[2017-12-26] MEDS: ZYVOX 600MG/300ML 600 MG/300 ML BAG IV SCH (09:41)
[2017-12-26] MEDS: ALPHAGAN P 0.15% OU SCH ×2 (09:41→22:06)
--- NOTE | 2017-12-26 09:42 | Progress Note ---
Assessment and Plan Assessment and plan: Sepsis. WBC rimproved. Etiology most likely complicated PEG site soft tissue infection +/- preseumed pneumonia Complicated PEG site at RUQ soft tissue infection: abdominal Cellulitis / Abscess. Abdominal CT showed extensive inflammatory changes and SQ air in the RUQ abdominal wall. Pt. is s/p OR debridement on 12/21 large amount of infected SQ tissue with some necrosis, NO fascial necrosis seen per surgery. OR cultures + ESBL Kleb, MRSA, E faecalis and GNR. Zosyn discontinued and ID started meropenem to cover ESBL Kleb - renally dosed. Cont. Zyvox . Contact isolation due to ESBL and MRSA -upon discharge will do meropenem 1 g V q12h and zyvox 600 mg PO q 12h total 2 weeks until 01/08 to cover all isolates-ESBL, MRSA, E faecalis and GNRs. ID following Toxic metabolic Encephalopathy: from sepsis / hypernatremia. Cont to treat underlying causes HOA - better. Baseline SCr 1.0mg/dL. Renal u/s: no hydronephrosis. Continue IV fluid with D5W Atrial fibrillation. Rate controlled Dementia CVA with disphagia s/p PEG, UA leukocyte esterase neg and 20 white blood cells. LLL pneumonia. CXR presumed LLL infiltrate. Cont. abx Hypernatremia - better. F/U BMP History Interval history: No new issues Hospitalist Physical - Constitutional Vitals: Temp Pulse Resp BP Pulse Ox 98.6 F 87 18 123/79 99 12/26/17 08:10 12/26/17 08:10 12/26/17 08:59 12/26/17 08:10 12/26/17 08:59 General appearance: Present: no acute distress, well-nourished - EENT Eyes: Present: PERRL, EOM intact ENT: hearing intact, clear oral mucosa, dentition normal - Neck Neck: Present: supple, normal ROM - Respiratory Respiratory effort: normal Respiratory: bilateral: CTA - Cardiovascular Rhythm: regular Heart Sounds: Present: S1 & S2. Absent: gallop, rub - Extremities Extremities: no ischemia, No edema, Full ROM - Abdominal General gastrointestinal: soft, non-distended, normal bowel sounds, other ( wound edges and base clean, no drainage, no necrotic tissue.) - Integumentary Integumentary: Present: clear, warm, dry - Neurologic Neurologic: CNII-XII intact, moves all extremities Results - Labs CBC & Chem 7: 12/26/17 05:04 12/26/17 05:04 Labs: Laboratory Last Values WBC 12.8 K/mm3 (4.5-11.0) H 12/26/17 05:04 RBC 3.51 M/mm3 (3.65-5.03) L 12/26/17 05:04 Hgb 8.9 gm/dl (10.1-14.3) L 12/26/17 05:04 Hct 28.3 % (30.3-42.9) L 12/26/17 05:04 MCV 81 fl (79-97) 12/26/17 05:04 MCH 26 pg (28-32) L 12/26/17 05:04 MCHC 32 % (30-34) 12/26/17 05:04 RDW 19.9 % (13.2-15.2) H 12/26/17 05:04 Plt Count 291 K/mm3 (140-440) 12/26/17 05:04 Lymph % (Auto) 17.7 % (13.4-35.0) 12/26/17 05:04 [place] % (Auto) 5.0 % (0.0-7.3) 12/26/17 05:04 Eos % (Auto) 2.2 % (0.0-4.3) 12/26/17 05:04 Baso % (Auto) 0.8 % (0.0-1.8) 12/26/17 05:04 Lymph # 2.3 K/mm3 (1.2-5.4) 12/26/17 05:04 [place] # 0.6 K/mm3 (0.0-0.8) 12/26/17 05:04 Eos # 0.3 K/mm3 (0.0-0.4) 12/26/17 05:04 Baso # 0.1 K/mm3 (0.0-0.1) 12/26/17 05:04 Add Manual Diff Complete 12/21/17 04:14 Total Counted 100 12/21/17 04:14 Seg Neutrophils % 74.3 % (40.0-70.0) H 12/26/17 05:04 Seg Neuts % (Manual) 43.0 % (40.0-70.0) 12/21/17 04:14 Band Neutrophils % 47.0 % 12/21/17 04:14 Lymphocytes % (Manual) 6.0 % (13.4-35.0) L 12/21/17 04:14 Reactive Lymphs % (Man) 0 % 12/21/17 04:14 Monocytes % (Manual) 0 % (0.0-7.3) 12/21/17 04:14 Eosinophils % (Manual) 1.0 % (0.0-4.3) 12/21/17 04:14 Basophils % (Manual) 0 % (0.0-1.8) 12/21/17 04:14 Metamyelocytes % 3.0 % 12/21/17 04:14 Myelocytes % 0 % 12/21/17 04:14 Promyelocytes % 0 % 12/21/17 04:14 Blast Cells % 0 % 12/21/17 04:14 Nucleated RBC % Not Reportable 12/21/17 04:14 Seg Neutrophils # 9.5 K/mm3 (1.8-7.7) H 12/26/17 05:04 Seg Neutrophils # Man 12.4 K/mm3 (1.8-7.7) H 12/21/17 04:14 Band Neutrophils # 13.6 K/mm3 12/21/17 04:14 Lymphocytes # (Manual) 1.7 K/mm3 (1.2-5.4) 12/21/17 04:14 Abs React Lymphs (Man) 0.0 K/mm3 12/21/17 04:14 Monocytes # (Manual) 0.0 K/mm3 (0.0-0.8) 12/21/17 04:14 Eosinophils # (Manual) 0.3 K/mm3 (0.0-0.4) 12/21/17 04:14 Basophils # (Manual) 0.0 K/mm3 (0.0-0.1) 12/21/17 04:14 Metamyelocytes # 0.9 K/mm3 12/21/17 04:14 Myelocytes # 0.0 K/mm3 12/21/17 04:14 Promyelocytes # 0.0 K/mm3 12/21/17 04:14 Blast Cells # 0.0 K/mm3 12/21/17 04:14 WBC Morphology Not Reportable 12/21/17 04:14 Hypersegmented Neuts Not Reportable 12/21/17 04:14 Hyposegmented Neuts Not Reportable 12/21/17 04:14 Hypogranular Neuts Not Reportable 12/21/17 04:14 Smudge Cells Not Reportable 12/21/17 04:14 Toxic Granulation Not Reportable 12/21/17 04:14 Toxic Vacuolation Not Reportable 12/21/17 04:14 Dohle Bodies Few 12/21/17 04:14 Pelger-Huet Anomaly Not Reportable 12/21/17 04:14 Stephany Rods Not Reportable 12/21/17 04:14 Platelet Estimate Appears normal 12/21/17 04:14 Clumped Platelets Not Reportable 12/21/17 04:14 Plt Clumps, EDTA Not Reportable 12/21/17 04:14 Large Platelets Not Reportable 12/21/17 04:14 Giant Platelets Not Reportable 12/21/17 04:14 Platelet Satelliting Not Reportable 12/21/17 04:14 Plt Morphology Comment Not Reportable 12/21/17 04:14 RBC Morphology Not Reportable 12/21/17 04:14 Dimorphic RBCs Not Reportable 12/21/17 04:14 Polychromasia Not Reportable 12/21/17 04:14 Hypochromasia Few 12/21/17 04:14 Poikilocytosis Not Reportable 12/21/17 04:14 Anisocytosis 1+ 12/21/17 04:14 Microcytosis Not Reportable 12/21/17 04:14 Macrocytosis Not Reportable 12/21/17 04:14 Spherocytes Few 12/21/17 04:14 Pappenheimer Bodies Not Reportable 12/21/17 04:14 Sickle Cells Not Reportable 12/21/17 04:14 Target Cells Not Reportable 12/21/17 04:14 Tear Drop Cells Not Reportable 12/21/17 04:14 Ovalocytes Not Reportable 12/21/17 04:14 Helmet Cells Not Reportable 12/21/17 04:14 Galleg[place]-P[place] Bodies Not Reportable 12/21/17 04:14 [place] Rings Not Reportable 12/21/17 04:14 [place] Cells Not Reportable 12/21/17 04:14 Bite Cells Not Reportable 12/21/17 04:14 Crenated Cell Not Reportable 12/21/17 04:14 Elliptocytes Not Reportable 12/21/17 04:14 Acanthocytes (Spur) Not Reportable 12/21/17 04:14 Rouleaux Not Reportable 12/21/17 04:14 Hemoglobin C Crystals Not Reportable 12/21/17 04:14 Schistocytes Not Reportable 12/21/17 04:14 Malaria parasites Not Reportable 12/21/17 04:14 [place] Bodies Not Reportable 12/21/17 04:14 Hem Pathologist Commnt No 12/21/17 04:14 PT 16.7 Sec. (12.2-14.9) H 12/19/17 22:00 INR 1.28 (0.87-1.13) H 12/19/17 22:00 APTT 34.3 Sec. (24.2-36.6) 12/19/17 22:00 Sodium 145 mmol/L (137-145) 12/26/17 05:04 Potassium 4.4 mmol/L (3.6-5.0) D 12/26/17 05:04 Chloride 109.4 mmol/L (98-107) H 12/26/17 05:04 Carbon Dioxide 17 mmol/L (22-30) L 12/26/17 05:04 Anion Gap 23 mmol/L 12/26/17 05:04 BUN 75 mg/dL (7-17) H 12/26/17 05:04 Creatinine 2.7 mg/dL (0.7-1.2) H 12/26/17 05:04 Estimated GFR 21 ml/min 12/26/17 05:04 BUN/Creatinine Ratio 28 % 12/26/17 05:04 Glucose 241 mg/dL (65-100) H 12/26/17 05:04 POC Glucose 309 (70-105) H 12/26/17 06:43 Osmolality 375 Mosm/kg 12/20/17 14:36 Lactic Acid 1.40 mmol/L (0.7-2.0) 12/19/17 22:00 Uric Acid 13.4 mg/dL (3.5-7.6) H 12/20/17 14:36 Calcium 8.4 mg/dL (8.4-10.2) 12/26/17 05:04 Total Bilirubin 0.40 mg/dL (0.1-1.2) 12/19/17 22:00 AST 17 units/L (5-40) 12/19/17 22:00 ALT 17 units/L (7-56) 12/19/17 22:00 Alkaline Phosphatase 111 units/L (35-129) 12/19/17 22:00 Total Creatine Kinase 238 units/L (30-135) H 12/20/17 14:36 C-Reactive Protein 37.50 mg/dL (0.00-1.30) H 12/21/17 Unknown Total Protein 8.1 g/dL (6.3-8.2) 12/19/17 22:00 Albumin 2.9 g/dL (3.9-5) L 12/19/17 22:00 Albumin/Globulin Ratio 0.6 % 12/19/17 22:00 Urine Color Yellow (Yellow) 12/20/17 17:00 Urine Turbidity Cloudy (Clear) 12/20/17 17:00 Urine pH 5.0 (5.0-7.0) 12/20/17 17:00 Ur Specific [place] 1.013 (1.003-1.030) 12/20/17 17:00 Urine Protein 100 mg/dl mg/dL (Negative) 12/20/17 17:00 Urine Glucose (UA) Neg mg/dL (Negative) 12/20/17 17:00 Urine Ketones Neg mg/dL (Negative) 12/20/17 17:00 Urine Blood Mod (Negative) 12/20/17 17:00 Urine Nitrite Neg (Negative) 12/20/17 17:00 Urine Bilirubin Neg (Negative) 12/20/17 17:00 Urine Urobilinogen < 2.0 mg/dL (<2.0) 12/20/17 17:00 Ur Leukocyte Esterase Neg (Negative) 12/20/17 17:00 Urine WBC (Auto) 20.0 /HPF (0.0-6.0) H 12/20/17 17:00 Urine RBC (Auto) 15.0 /HPF (0.0-6.0) 12/20/17 17:00 Urine Mucus Few /HPF 12/20/17 17:00 Urine Creatinine 90.2 mg/dL (0.1-20.0) H 12/20/17 17:00 Urine Sodium 46 mmol/L 12/20/17 17:00 Urine Total Protein 91 mg/dL (5-11.8) H 12/20/17 17:00 Blood Type O POSITIVE 12/21/17 17:11 Antibody Screen Negative 12/21/17 17:11 Crossmatch See Detail 12/21/17 17:11
[2017-12-26] MEDS: MERREM 1,000 MG in NACL 0.9% 100 ML IV SCH ×2 (09:47→22:06)
[2017-12-26] MEDS: DAKIN'S HALF STRENGTH TP SCH (10:00)
--- NOTE | 2017-12-26 11:29 | Progress Note ---
Assessment and Plan Assessment: 1) Sepsis: better, wbc went slight up. Etiology most likely complicated PEG site soft tissue infection +/- presumed pneumonia 2) Complicated PEG site at RUQ soft tissue infection: abdominal Cellulitis / Abscess -Abdominal CT showed extensive inflammatory changes and SQ air in the RUQ abdominal wall. -s/p OR debridement on 12/21 large amount of infected SQ tissue with some necrosis, NO fascial necrosis seen per surgery. -OR cultures + ESBL Kleb, MRSA, E faecalis and Kleb non-ESBL -CRP=37 3) Encephalopathy: from sepsis / hypernatremia - not better 4) HOA - better 5) Dementia 6) CVA with disphagia s/p PEG, UA leukocyte esterase neg and 20 white blood cells. 7) Presumed pneumonia: CXR presumed LLL infiltrate 8) Hypernatremia - better Plan: -continue meropenem to cover ESBL Kleb - renally dosed -continue zyvox change to PO via NGT -contact isolation due to ESBL and MRSA -upon discharge will do meropenem 1 g V q12h and zyvox 600 mg PO q 12h total 2 weeks until 01/08 to cover all isolates-ESBL, MRSA, E faecalis and GNRs -OPAT orders sent to case management associate -place a PICC -wound care -monitor mentation I am signing off Thank you for your consultation, will follow up with you. Malaika Vang MD Infectious Diseases Specialist [facility] ([facility]) M [phone] O [phone] Subjective Date of service: 12/26/17 Principal diagnosis: sepsis Interval history: lethargic not following commands. no fever. Microbiology: Blood cultures: 12/19 neg Urine cultures: 12/19 neg OR cultures: ESBL Kleb, MRSA, E faecalis and [place] non ESBL Current Antimicrobials: zyvox 3/ meropenem / Previous Antimicrobials: Levaquin 12/19 ceftriaxone zosyn / Objective - Exam Narrative Exam: General appearance: lethargic NAD, non conversant Eyes: anicteric sclerae, moist conjunctivae; no lid-lag; PERRLA HENT: Atraumatic; oropharynx limited +NGT Neck: Trachea midline; supple, no thyromegaly or lymphadenopathy Lungs: CTAbil CV: tachy Abdomen: Soft, +RUQ site with surg dressings Extremities: jesus contracted Skin: Normal temperature, turgor and texture; no rash, ulcers or subcutaneous nodules Psych: non verbal. Neuro: non verbal contracted leg Lines: - Constitutional Vitals: Vital Signs Temp Pulse Resp BP Pulse Ox 98.6 F 87 18 123/79 99 12/26/17 08:10 12/26/17 08:10 12/26/17 08:59 12/26/17 08:10 12/26/17 08:59 Temperature -Last 24 Hours Temperature 98.6 F Temperature 98.5 F Temperature 99.5 F - Labs CBC & Chem 7: 12/26/17 05:04 12/26/17 05:04 Labs: Abnormal lab results 12/25/17 12/25/17 12/25/17 Range/Units 11:31 16:44 23:58 WBC (4.5-11.0) K/mm3 RBC (3.65-5.03) M/mm3 Hgb (10.1-14.3) gm/dl Hct (30.3-42.9) % MCH (28-32) pg RDW (13.2-15.2) % Seg Neutrophils % (40.0-70.0) % Seg Neutrophils # (1.8-7.7) K/mm3 Chloride (98-107) mmol/L Carbon Dioxide (22-30) mmol/L BUN (7-17) mg/dL Creatinine (0.7-1.2) mg/dL Glucose (65-100) mg/dL POC Glucose 204 H 268 H 269 H (70-105) 12/26/17 12/26/17 12/26/17 Range/Units 05:04 05:04 06:43 WBC 12.8 H (4.5-11.0) K/mm3 RBC 3.51 L (3.65-5.03) M/mm3 Hgb 8.9 L (10.1-14.3) gm/dl Hct 28.3 L (30.3-42.9) % MCH 26 L (28-32) pg RDW 19.9 H (13.2-15.2) % Seg Neutrophils % 74.3 H (40.0-70.0) % Seg Neutrophils # 9.5 H (1.8-7.7) K/mm3 Chloride 109.4 H (98-107) mmol/L Carbon Dioxide 17 L (22-30) mmol/L BUN 75 H (7-17) mg/dL Creatinine 2.7 H (0.7-1.2) mg/dL Glucose 241 H (65-100) mg/dL POC Glucose 309 H (70-105)
[2017-12-26] MEDS: ZYVOX PO SCH ×3 (12:49→22:06)
--- NOTE | 2017-12-26 13:46 | Progress Note ---
Assessment and Plan Assessment: * Acute kidney injury secondary to prerenal azotemia --Baseline SCr 1.0mg/dL --Renal u/s: no hydronephrosis * Hypernatremia * AMS * Malfunctioning PEG w/ RUQ soft tissue infection * Leukocytosis - blood/urine cx NGTD * Anemia * Atrial fibrillation * CVA * Dementia Plan: * Her renal function is slowly improving. * Continue IV fluid with D5W * Monitor her renal function and electrolytes closely * Abx per ID * Transfuse pRBC prn * Strict I/O * Dose medications for renal function * Avoid potential nephrotoxin * Patient's sister's contact number is [phone]. Subjective Date of service: 12/26/17 Principal diagnosis: sepsis Interval history: No acute events Objective - Vital Signs Vital signs: Vital Signs - 12hr 12/26/17 12/26/17 08:10 08:59 Temperature 98.6 F Pulse Rate 87 Respiratory 22 18 Rate Blood Pressure 123/79 O2 Sat by Pulse 100 99 Oximetry - General Appearance General appearance: well-developed, well-nourished EENT: ATNC Respiratory: Present: Decreased Breath Sounds Cardiology: regular, S1S2 Gastrointestinal: no distended Integumentary: no rash, warm and dry Neurologic: other (somnolent) Musculoskeletal: other (no edema) - Lab 12/26/17 05:04 12/26/17 05:04 Most recent lab results Calcium 8.4 mg/dL (8.4-10.2) 12/26/17 05:04 Urine Creatinine 90.2 mg/dL (0.1-20.0) H 12/20/17 17:00 Urine Sodium 46 mmol/L 12/20/17 17:00 Urine Total Protein 91 mg/dL (5-11.8) H 12/20/17 17:00
[2017-12-27] MEDS: NOVOLOG SUB-Q SCH ×3 (00:55→12:23)
[2017-12-27 04:56] LABS: Basophils % (Auto) 0.1 % (0.0-1.8); Eosinophils # (Auto) 0.3 K/mm3 (0.0-0.4); Eosinophils % (Auto) 2.8 % (0.0-4.3); Hematocrit 29.9 % (30.3-42.9); Hemoglobin 9.2 gm/dl (10.1-14.3); Lymphocytes # (Auto) 1.6 K/mm3 (1.2-5.4); Lymphocytes % (Auto) 15.6 % (13.4-35.0); Mean Corpuscular HGB Conc 31 % (30-34); Mean Corpuscular Volume 83 fl (79-97); Monocytes # (Auto) 0.4 K/mm3 (0.0-0.8); Monocytes % (Auto) 4.1 % (0.0-7.3); Platelet Count 294 K/mm3 (140-440); Red Blood Count 3.61 M/mm3 (3.65-5.03)
[2017-12-27 04:57] LABS: Calcium 8.2 mg/dL (8.4-10.2)
[2017-12-27 05:03] LABS: Mean Corpuscular Hemoglobin 26 pg (28-32)
--- NOTE | 2017-12-27 08:47 | Progress Note ---
Assessment and Plan Assessment and plan: Sepsis. WBC rimproved. Etiology most likely complicated PEG site soft tissue infection +/- preseumed pneumonia Complicated PEG site at RUQ soft tissue infection: abdominal Cellulitis / Abscess. Abdominal CT showed extensive inflammatory changes and SQ air in the RUQ abdominal wall. Pt. is s/p OR debridement on 12/21 large amount of infected SQ tissue with some necrosis, NO fascial necrosis seen per surgery. OR cultures + ESBL Kleb, MRSA, E faecalis and GNR. Zosyn discontinued and ID started meropenem to cover ESBL Kleb - renally dosed. Cont. Zyvox . Contact isolation due to ESBL and MRSA -upon discharge will do meropenem 1 g V q12h and zyvox 600 mg PO q 12h total 2 weeks until 01/08 to cover all isolates-ESBL, MRSA, E faecalis and GNRs. ID following Toxic metabolic Encephalopathy: from sepsis / hypernatremia. Cont to treat underlying causes HOA - better. Baseline SCr 1.0mg/dL. Renal u/s: no hydronephrosis. Continue IV fluid with D5W Atrial fibrillation. Rate controlled Dementia CVA with disphagia s/p PEG, UA leukocyte esterase neg and 20 white blood cells. LLL pneumonia. CXR presumed LLL infiltrate. Cont. abx. F/U repeat CXR Hypernatremia - better. F/U BMP Disposition. LTACH eval History Interval history: No new issues Hospitalist Physical - Constitutional Vitals: Temp Pulse Resp BP Pulse Ox 98.8 F 93 H 22 142/73 100 12/27/17 08:14 12/27/17 08:14 12/27/17 08:14 12/27/17 08:14 12/27/17 08:14 General appearance: Present: no acute distress, well-nourished - EENT Eyes: Present: PERRL, EOM intact ENT: hearing intact, clear oral mucosa, dentition normal - Neck Neck: Present: supple, normal ROM - Respiratory Respiratory effort: normal Respiratory: bilateral: CTA - Cardiovascular Rhythm: regular Heart Sounds: Present: S1 & S2. Absent: gallop, rub - Extremities Extremities: no ischemia, No edema, Full ROM - Abdominal General gastrointestinal: soft, non-tender, non-distended, normal bowel sounds - Integumentary Integumentary: Present: clear, warm, dry - Neurologic Neurologic: CNII-XII intact, moves all extremities Results - Labs CBC & Chem 7: 12/27/17 04:02 12/27/17 04:02 Labs: Laboratory Last Values WBC 10.0 K/mm3 (4.5-11.0) 12/27/17 04:02 RBC 3.61 M/mm3 (3.65-5.03) L 12/27/17 04:02 Hgb 9.2 gm/dl (10.1-14.3) L 12/27/17 04:02 Hct 29.9 % (30.3-42.9) L 12/27/17 04:02 MCV 83 fl (79-97) 12/27/17 04:02 MCH 26 pg (28-32) L 12/27/17 04:02 MCHC 31 % (30-34) 12/27/17 04:02 RDW 20.0 % (13.2-15.2) H 12/27/17 04:02 Plt Count 294 K/mm3 (140-440) 12/27/17 04:02 Lymph % (Auto) 15.6 % (13.4-35.0) 12/27/17 04:02 [place] % (Auto) 4.1 % (0.0-7.3) 12/27/17 04:02 Eos % (Auto) 2.8 % (0.0-4.3) 12/27/17 04:02 Baso % (Auto) 0.1 % (0.0-1.8) 12/27/17 04:02 Lymph # 1.6 K/mm3 (1.2-5.4) 12/27/17 04:02 [place] # 0.4 K/mm3 (0.0-0.8) 12/27/17 04:02 Eos # 0.3 K/mm3 (0.0-0.4) 12/27/17 04:02 Baso # 0.0 K/mm3 (0.0-0.1) 12/27/17 04:02 Add Manual Diff Complete 12/21/17 04:14 Total Counted 100 12/21/17 04:14 Seg Neutrophils % 77.4 % (40.0-70.0) H 12/27/17 04:02 Seg Neuts % (Manual) 43.0 % (40.0-70.0) 12/21/17 04:14 Band Neutrophils % 47.0 % 12/21/17 04:14 Lymphocytes % (Manual) 6.0 % (13.4-35.0) L 12/21/17 04:14 Reactive Lymphs % (Man) 0 % 12/21/17 04:14 Monocytes % (Manual) 0 % (0.0-7.3) 12/21/17 04:14 Eosinophils % (Manual) 1.0 % (0.0-4.3) 12/21/17 04:14 Basophils % (Manual) 0 % (0.0-1.8) 12/21/17 04:14 Metamyelocytes % 3.0 % 12/21/17 04:14 Myelocytes % 0 % 12/21/17 04:14 Promyelocytes % 0 % 12/21/17 04:14 Blast Cells % 0 % 12/21/17 04:14 Nucleated RBC % Not Reportable 12/21/17 04:14 Seg Neutrophils # 7.8 K/mm3 (1.8-7.7) H 12/27/17 04:02 Seg Neutrophils # Man 12.4 K/mm3 (1.8-7.7) H 12/21/17 04:14 Band Neutrophils # 13.6 K/mm3 12/21/17 04:14 Lymphocytes # (Manual) 1.7 K/mm3 (1.2-5.4) 12/21/17 04:14 Abs React Lymphs (Man) 0.0 K/mm3 12/21/17 04:14 Monocytes # (Manual) 0.0 K/mm3 (0.0-0.8) 12/21/17 04:14 Eosinophils # (Manual) 0.3 K/mm3 (0.0-0.4) 12/21/17 04:14 Basophils # (Manual) 0.0 K/mm3 (0.0-0.1) 12/21/17 04:14 Metamyelocytes # 0.9 K/mm3 12/21/17 04:14 Myelocytes # 0.0 K/mm3 12/21/17 04:14 Promyelocytes # 0.0 K/mm3 12/21/17 04:14 Blast Cells # 0.0 K/mm3 12/21/17 04:14 WBC Morphology Not Reportable 12/21/17 04:14 Hypersegmented Neuts Not Reportable 12/21/17 04:14 Hyposegmented Neuts Not Reportable 12/21/17 04:14 Hypogranular Neuts Not Reportable 12/21/17 04:14 Smudge Cells Not Reportable 12/21/17 04:14 Toxic Granulation Not Reportable 12/21/17 04:14 Toxic Vacuolation Not Reportable 12/21/17 04:14 [place] Bodies Few 12/21/17 04:14 Pelger-Huet Anomaly Not Reportable 12/21/17 04:14 Stephany Rods Not Reportable 12/21/17 04:14 Platelet Estimate Appears normal 12/21/17 04:14 Clumped Platelets Not Reportable 12/21/17 04:14 Plt Clumps, EDTA Not Reportable 12/21/17 04:14 Large Platelets Not Reportable 12/21/17 04:14 Giant Platelets Not Reportable 12/21/17 04:14 Platelet Satelliting Not Reportable 12/21/17 04:14 Plt Morphology Comment Not Reportable 12/21/17 04:14 RBC Morphology Not Reportable 12/21/17 04:14 Dimorphic RBCs Not Reportable 12/21/17 04:14 Polychromasia Not Reportable 12/21/17 04:14 Hypochromasia Few 12/21/17 04:14 Poikilocytosis Not Reportable 12/21/17 04:14 Anisocytosis 1+ 12/21/17 04:14 Microcytosis Not Reportable 12/21/17 04:14 Macrocytosis Not Reportable 12/21/17 04:14 Spherocytes Few 12/21/17 04:14 Pappenheimer Bodies Not Reportable 12/21/17 04:14 Sickle Cells Not Reportable 12/21/17 04:14 Target Cells Not Reportable 12/21/17 04:14 Tear Drop Cells Not Reportable 12/21/17 04:14 Ovalocytes Not Reportable 12/21/17 04:14 Helmet Cells Not Reportable 12/21/17 04:14 [place] Bodies Not Reportable 12/21/17 04:14 [place] Rings Not Reportable 12/21/17 04:14 [place] Cells Not Reportable 12/21/17 04:14 Bite Cells Not Reportable 12/21/17 04:14 Crenated Cell Not Reportable 12/21/17 04:14 Elliptocytes Not Reportable 12/21/17 04:14 Acanthocytes (Spur) Not Reportable 12/21/17 04:14 Rouleaux Not Reportable 12/21/17 04:14 Hemoglobin C Crystals Not Reportable 12/21/17 04:14 Schistocytes Not Reportable 12/21/17 04:14 Malaria parasites Not Reportable 12/21/17 04:14 [place] Bodies Not Reportable 12/21/17 04:14 Hem Pathologist Commnt No 12/21/17 04:14 PT 16.7 Sec. (12.2-14.9) H 12/19/17 22:00 INR 1.28 (0.87-1.13) H 12/19/17 22:00 APTT 34.3 Sec. (24.2-36.6) 12/19/17 22:00 Sodium 142 mmol/L (137-145) 12/27/17 04:02 Potassium 3.4 mmol/L (3.6-5.0) L D 12/27/17 04:02 Chloride 103.6 mmol/L (98-107) 12/27/17 04:02 Carbon Dioxide 21 mmol/L (22-30) L 12/27/17 04:02 Anion Gap 21 mmol/L 12/27/17 04:02 BUN 67 mg/dL (7-17) H 12/27/17 04:02 Creatinine 2.4 mg/dL (0.7-1.2) H 12/27/17 04:02 Estimated GFR 24 ml/min 12/27/17 04:02 BUN/Creatinine Ratio 28 % 12/27/17 04:02 Glucose 268 mg/dL (65-100) H 12/27/17 04:02 POC Glucose 197 (70-105) H 12/26/17 22:35 Osmolality 375 Mosm/kg 12/20/17 14:36 Lactic Acid 1.40 mmol/L (0.7-2.0) 12/19/17 22:00 Uric Acid 13.4 mg/dL (3.5-7.6) H 12/20/17 14:36 Calcium 8.2 mg/dL (8.4-10.2) L 12/27/17 04:02 Total Bilirubin 0.40 mg/dL (0.1-1.2) 12/19/17 22:00 AST 17 units/L (5-40) 12/19/17 22:00 ALT 17 units/L (7-56) 12/19/17 22:00 Alkaline Phosphatase 111 units/L (35-129) 12/19/17 22:00 Total Creatine Kinase 238 units/L (30-135) H 12/20/17 14:36 C-Reactive Protein 37.50 mg/dL (0.00-1.30) H 12/21/17 Unknown Total Protein 8.1 g/dL (6.3-8.2) 12/19/17 22:00 Albumin 2.9 g/dL (3.9-5) L 12/19/17 22:00 Albumin/Globulin Ratio 0.6 % 12/19/17 22:00 Urine Color Yellow (Yellow) 12/20/17 17:00 Urine Turbidity Cloudy (Clear) 12/20/17 17:00 Urine pH 5.0 (5.0-7.0) 12/20/17 17:00 Ur Specific [place] 1.013 (1.003-1.030) 12/20/17 17:00 Urine Protein 100 mg/dl mg/dL (Negative) 12/20/17 17:00 Urine Glucose (UA) Neg mg/dL (Negative) 12/20/17 17:00 Urine Ketones Neg mg/dL (Negative) 12/20/17 17:00 Urine Blood Mod (Negative) 12/20/17 17:00 Urine Nitrite Neg (Negative) 12/20/17 17:00 Urine Bilirubin Neg (Negative) 12/20/17 17:00 Urine Urobilinogen < 2.0 mg/dL (<2.0) 12/20/17 17:00 Ur Leukocyte Esterase Neg (Negative) 12/20/17 17:00 Urine WBC (Auto) 20.0 /HPF (0.0-6.0) H 12/20/17 17:00 Urine RBC (Auto) 15.0 /HPF (0.0-6.0) 12/20/17 17:00 Urine Mucus Few /HPF 12/20/17 17:00 Urine Creatinine 90.2 mg/dL (0.1-20.0) H 12/20/17 17:00 Urine Sodium 46 mmol/L 12/20/17 17:00 Urine Total Protein 91 mg/dL (5-11.8) H 12/20/17 17:00 Blood Type O POSITIVE 12/21/17 17:11 Antibody Screen Negative 12/21/17 17:11 Crossmatch See Detail 12/21/17 17:11
[2017-12-27] MEDS: MERREM 1,000 MG in NACL 0.9% 100 ML IV SCH (09:12)
[2017-12-27] MEDS: ALPHAGAN P 0.15% OU SCH (09:12)
[2017-12-27] MEDS: ZYVOX PO SCH (09:12)
[2017-12-27] MEDS: DAKIN'S HALF STRENGTH TP SCH (10:00)
[2017-12-27] MEDS: KCL 20 MEQ in D5W 1,000 ML IV SCH ×2 (10:20→22:05)
[2017-12-27] MEDS: MORPHINE IV PRN (10:25)
--- NOTE | 2017-12-27 11:40 | XRay Report ---
AP CHEST: HISTORY: Pneumonia Compared to 12/19/17. There is mild rotation to the right. A feeding tube is in place. There is minimal residual airspace opacity at the left lung base. Otherwise, the lungs are clear. Heart size is at the upper limits of normal. No large pleural effusion or pneumothorax. IMPRESSION: Minimal residual opacity at the left lung base.
--- NOTE | 2017-12-27 15:05 | Progress Note ---
Assessment and Plan Assessment: * Acute kidney injury secondary to prerenal azotemia --Baseline SCr 1.0mg/dL --Renal u/s: no hydronephrosis * Hypernatremia * AMS * Malfunctioning PEG w/ RUQ soft tissue infection * Leukocytosis - blood/urine cx NGTD * Anemia * Atrial fibrillation * CVA * Dementia Plan: * Her renal function is slowly improving. * Continue IV fluid with D5W * Monitor her renal function and electrolytes closely * Abx per ID * Transfuse pRBC prn * Strict I/O * Dose medications for renal function * Avoid potential nephrotoxin * Patient's sister's contact number is [phone]. Subjective Date of service: 12/27/17 Principal diagnosis: sepsis Interval history: No acute events overnight. Objective - Vital Signs Vital signs: Vital Signs - 12hr 12/27/17 12/27/17 12/27/17 04:26 07:31 08:14 Temperature 98.3 F 98.8 F Pulse Rate 85 93 H Respiratory 20 22 Rate Blood Pressure 135/88 142/73 O2 Sat by Pulse 100 95 100 Oximetry - General Appearance General appearance: well-developed, well-nourished EENT: ATNC Respiratory: Present: Decreased Breath Sounds Cardiology: regular, S1S2 Gastrointestinal: no distended Neurologic: other (somnolent) Musculoskeletal: other (no edema) - Lab 12/27/17 04:02 12/27/17 04:02 Most recent lab results Calcium 8.2 mg/dL (8.4-10.2) L 12/27/17 04:02 Urine Creatinine 90.2 mg/dL (0.1-20.0) H 12/20/17 17:00 Urine Sodium 46 mmol/L 12/20/17 17:00 Urine Total Protein 91 mg/dL (5-11.8) H 12/20/17 17:00
--- NOTE | 2017-12-27 15:21 | XRay Report ---
AP CHEST: HISTORY: Right arm PICC placement A right arm PICC has been inserted which terminates in the superior right atrium. Consider retraction by 2 cm to the cavoatrial junction. There is mild residual opacity at the left lung base which could represent a resolving infiltrate. The remainder of the lungs are clear. Borderline heart size is stable. IMPRESSION: Right arm PICC as described. Residual infiltrate at the left lung base. Borderline heart size.
[2017-12-27] MEDS: HumaLOG SUB-Q SCH (17:30)
[2017-12-27] MEDS ORDERED: HumaLOG SUB-Q ONE (18:00)
[2017-12-28] MEDS: HumaLOG SUB-Q SCH ×3 (00:05→12:36)
[2017-12-28] MEDS: ZYVOX PO SCH ×2 (00:06→09:18)
[2017-12-28] MEDS: ALPHAGAN P 0.15% OU SCH ×2 (00:07→09:19)
[2017-12-28] MEDS: MERREM 1,000 MG in NACL 0.9% 100 ML IV SCH ×2 (00:08→09:18)
[2017-12-28] MEDS: MORPHINE IV PRN ×2 (00:12→15:32)
[2017-12-28 04:40] LABS: Basophils % (Auto) 0.4 % (0.0-1.8); Eosinophils # (Auto) 0.3 K/mm3 (0.0-0.4); Hematocrit 25.8 % (30.3-42.9); Hemoglobin 8.3 gm/dl (10.1-14.3); Lymphocytes % (Auto) 20.4 % (13.4-35.0); Mean Corpuscular HGB Conc 32 % (30-34); Mean Corpuscular Volume 81 fl (79-97); Monocytes # (Auto) 0.6 K/mm3 (0.0-0.8); Monocytes % (Auto) 5.6 % (0.0-7.3); Platelet Count 280 K/mm3 (140-440); Red Blood Count 3.21 M/mm3 (3.65-5.03); Red Cell Distribution Width 19.7 % (13.2-15.2)
[2017-12-28 04:50] LABS: Calcium 8.4 mg/dL (8.4-10.2)
[2017-12-28 04:51] LABS: Calcium 8.4 mg/dL (8.4-10.2)
[2017-12-28 05:01] LABS: Mean Corpuscular Hemoglobin 26 pg (28-32)
--- NOTE | 2017-12-28 08:00 | Discharge Summary ---
Providers - Providers Date of Admission: 12/20/17 01:56 Date of discharge: 12/28/17 Attending physician: SUNDAY BRIGGS 12/20/17 06:59 Consult to Dietitian/Nutrition [CONS] Stat Physician Instructions: Reason For Exam: Wounds/G-tube Reason for Consult: Write/Manage Tube Feeding Consult to Wound/ET Nurse [CONS] Stat Reason For Exam: wound eval 12/20/17 11:01 Consult to Physician [CONS] Routine Consulting Provider: YOSSI COREY Reason For Exam: ARF Place consult to:: Notified:: Phone number called:: [phone] Was contact made?: Yes If yes, spoke with:: JHOAN Owens called:: 12:07 Comment:: AMAURY 12/20/17 11:04 Physical Therapy Evaluation and Treat [CONS] Routine Comment: Reason For Exam: ADLs evaluation 12/20/17 17:29 Consult to Physician [CONS] Routine Consulting Provider: MARILY NAILS Reason For Exam: peg malfunctioning Place consult to:: Jose A CADE Notified:: Jose A CADE Phone number called:: [phone] Was contact made?: Yes If yes, spoke with:: IVA Time called:: 17:54 Comment:: AMAURY 12/21/17 07:29 Consult to Physician [CONS] Routine Consulting Provider: MALAIKA MANE Reason For Exam: Sepsis UTI Place consult to:: dr batista Notified:: yes Time called:: 07:44 Comment:: edmund/ left mess. on answering machine 12/21/17 15:59 Consult to Physician [CONS] Routine Consulting Provider: RANJANA TRUJILLO Reason For Exam: Peg abscess Place consult to:: answering service Notified:: yes If yes, spoke with:: answering machine Time called:: 16:21 Comment:: edmund 12/22/17 12:47 Consult to Dietitian/Nutrition [CONS] Routine Physician Instructions: Reason For Exam: PEG removed need to feed per [facility]bhoff Reason for Consult: Write/Manage Tube Feeding 12/22/17 18:32 Consult to Dietitian/Nutrition [CONS] Routine Physician Instructions: Reason For Exam: Reason for Consult: Write/Manage Tube Feeding 12/25/17 09:14 Consult to Case Management [CONS] Routine Services Needed at Discharge: Other Notified:: uriel Additional Physician Instructions: [facility] Malaika Batista MD M [phone] O [phone] F [phone] OUTPATIENT PARENTERAL ANTIBIOTIC THERAPY ORDERS Diagnoses: PEG site 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 Please fax results to [phone] and call [phone] for critical lab results. Malaika Batista Date: 12/25/17 12/25/17 09:17 Consult to PICC Line RN [CONS] Stat Reason For Exam: IV antibiotics Type Line:: PICC 12/27/17 07:00 Consult to Wound/ET Nurse [CONS] Routine Reason For Exam: breakdown on sacrum/left palm scab Primary care physician: SHAWN PICHARDO Hospitalization Reason for admission: sepsis Condition: Stable Hospital course: 67 years old female with history of dementia, CVA with disphagia s/p PEG, hypertension, A. fib, brought from [facility] due to worsening AMS for 48 hours associated with hypernatremia. CA also reported her PEG tube has been leaking for several weeks. In the ED, initial temperature 98.5, heart rate 90, respiration 29, blood pressure 122/78. Initial white count 11 which then went to 28.9. Hemoglobin 9.6. Platelets 358. Creat 3.6. Sodium increased as high as 158. Abdominal CT showed extensive inflammatory changes and SQ air in the RUQ abdominal wall. UA leukocyte esterase neg and 20 white blood cells. CXR presumed LLL infiltrate. The patient was admitted with diagnosis of sepsis secondary to UTI and complicated PEG site/right upper quadrant soft tissue infection with cellulitis and abscess versus necrotizing fasciitis. Abdominal CT scan showed extensive inflammatory changes and subcutaneous air in the right upper quadrant abdominal wall. The patient was seen by general surgery and ID in consultation. The patient received appropriate antibiotics and underwent incision, drainage and debridement (12/21/17 ) of the abdominal wall infection. Patient had large amount of infected and necrotic subcutaneous tissue. OR cultures revealed ESBL Klebsiella, MRSA, E faecalis and non-ESBL Klebsiella. The patient also had other complications during the hospital stay with acute kidney injury secondary to vasomotor nephropathy and ATN from sepsis. Patient's baseline creatinine is 1.0. Renal ultrasound showed no hydronephrosis. Patient's creatinine has slowly improved with IV fluid hydration. Other issues during hospital stay included toxic metabolic encephalopathy from sepsis/hypernatremia with underlying Alzheimer's dementia. ID recommends meropenem 1 g IV every 12 hours and Zyvox 600 mg by mouth every 12 hours for approximately 2 weeks until 01/08/18. Continue contact isolation due to ESBL and MRSA. Case management was later consulted with regards to discharge planning and LTAC placement deemed appropriate. Dedicated discharge time 34 minutes. Disposition: DC/TX-70 ANOTHER TYPE THCARE Time spent for discharge: 34 - Discharge Diagnoses (1) Toxic metabolic encephalopathy Status: Acute (2) Vasomotor nephropathy Status: Acute (3) Abdominal wall abscess Status: Acute (4) Hypernatremia Status: Acute (5) Infection of PEG site Status: Acute (6) Diabetes Status: Acute (7) Hypertension Status: Acute (8) Sacral decubitus ulcer Status: Acute (9) Sepsis Status: Acute Qualifiers: Sepsis type: sepsis due to unspecified organism Qualified Code(s): A41.9 - Sepsis, unspecified organism (10) Volume depletion Status: Acute Core Measure Documentation - Palliative Care Palliative Care/ Comfort Measures: Not Applicable - Core Measures Any of the following diagnoses?: none Exam - Constitutional Vitals: Temp Pulse Resp BP Pulse Ox 99.0 F 93 H 20 128/76 99 12/28/17 04:10 12/28/17 04:10 12/28/17 04:10 12/28/17 04:10 12/28/17 04:10 General appearance: Present: no acute distress, well-nourished - EENT Eyes: Present: PERRL ENT: hearing intact, clear oral mucosa - Neck Neck: Present: supple, normal ROM - Respiratory Respiratory effort: normal Respiratory: bilateral: CTA - Cardiovascular Heart Sounds: Present: S1 & S2. Absent: rub, click - Extremities Extremities: pulses symmetrical, No edema Peripheral Pulses: within normal limits - Abdominal General gastrointestinal: Present: soft, non-tender, non-distended, normal bowel sounds Female genitourinary: Present: normal - Integumentary Integumentary: Present: clear, warm, dry - Musculoskeletal Musculoskeletal: gait normal, strength equal bilaterally - Psychiatric Psychiatric: appropriate mood/affect, intact judgment & insight - Neurologic Neurologic: CNII-XII intact, moves all extremities Plan Activity: advance as tolerated Weight Bearing Status: Weight Bear as Tolerated Diet: other (TF) Wound: per your surgeon's advice, per wound nurse instructions Follow up with: RICH MENON MD [Staff Physician] - 3-5 Days YOSSI COREY MD [Staff Physician] - 7 Days
[2017-12-28] MEDS: DAKIN'S HALF STRENGTH TP SCH (10:00)
[2017-12-28] MEDS ORDERED: HumaLOG SUB-Q ONE ×3 (10:00)
[2017-12-28] MEDS: KCL 20 MEQ in D5W 1,000 ML IV SCH (10:20)
--- NOTE | 2017-12-28 11:12 | Event Note ---
Date: 12/28/17 Per case management, the patient is being discharged to [facility]. The patient has been accepted and may be discharged with [facility] for temporary feeding access while her abdominal wall wound heals. The patient's wound vac was changed by wound care nursing yesterday and the tissues were reportedly healthy without additional need for debridement. Will reevaluate the patient for permanent feeding access once her abdominal wall wound heals.
--- NOTE | 2017-12-28 13:17 | Progress Note ---
Assessment and Plan Assessment: * Acute kidney injury secondary to prerenal azotemia --Baseline SCr 1.0mg/dL --Renal u/s: no hydronephrosis * Hypernatremia * AMS * Malfunctioning PEG w/ RUQ soft tissue infection * Leukocytosis - blood/urine cx NGTD * Anemia * Atrial fibrillation * CVA * Dementia Plan: * Her renal function is slowly improving. * Continue IV fluid with D5W * Monitor her renal function and electrolytes closely * Abx per ID * Transfuse pRBC prn * Strict I/O * Dose medications for renal function * Avoid potential nephrotoxin * Patient's sister's contact number is [phone]. * Note plans to d/c to LTAC today Subjective Date of service: 12/28/17 Principal diagnosis: sepsis Interval history: No acute events overnight Objective - Exam Narrative Exam: Deferred - Vital Signs Vital signs: Vital Signs - 12hr 12/28/17 12/28/17 12/28/17 04:10 07:56 08:57 Temperature 99.0 F 99.4 F Pulse Rate 93 H 86 Respiratory 20 18 Rate Blood Pressure 128/76 122/80 O2 Sat by Pulse 99 100 100 Oximetry - Lab 12/28/17 04:13 12/28/17 04:13 Most recent lab results Calcium 8.4 mg/dL (8.4-10.2) 12/28/17 04:13 Urine Creatinine 90.2 mg/dL (0.1-20.0) H 12/20/17 17:00 Urine Sodium 46 mmol/L 12/20/17 17:00 Urine Total Protein 91 mg/dL (5-11.8) H 12/20/17 17:00
[2017-12-28 13:52] VITALS: BP 110/74
== END 2017-12-28 16:44 | DRG 356 ==
LOC: ED 21:34 → 2B-ACE 12-20 01:56 → CC1 12-21 21:59 → 2B-ACE 12-22 17:48
PROVIDERS: ADMIT Internal Medicine; ATTEND Hospitalist
PROC: 0JB80ZZ Excision of Abdomen Subcutaneous Tissue and Fascia, Open Approach (ICD-10-PCS; principal; 2017-12-21)
PROC: 30233N1 Transfusion of Nonautologous Red Blood Cells into Peripheral Vein, Percutaneous Approach (ICD-10-PCS; 2017-12-21)
DX: K94.23 Gastrostomy malfunction (principal); A41.9 Sepsis, unspecified organism; N17.0 Acute kidney failure with tubular necrosis; G92 Toxic encephalopathy; J18.1 Lobar pneumonia, unspecified organism; E87.0 Hyperosmolality and hypernatremia; N39.0 Urinary tract infection, site not specified; L02.211 Cutaneous abscess of abdominal wall; Z88.6 Allergy status to analgesic agent; Z66 Do not resuscitate; I10 Essential (primary) hypertension; E11.9 Type 2 diabetes mellitus without complications; Z79.4 Long term (current) use of insulin; Z79.82 Long term (current) use of aspirin; F32.9 Major depressive disorder, single episode, unspecified; I48.91 Unspecified atrial fibrillation; H54.8 Legal blindness, as defined in USA; F03.90 Unspecified dementia, unspecified severity, without behavioral disturbance, psychotic disturbance, mood disturbance, and anxiety; H40.9 Unspecified glaucoma; F41.9 Anxiety disorder, unspecified; E87.6 Hypokalemia; L89.159 Pressure ulcer of sacral region, unspecified stage; E78.5 Hyperlipidemia, unspecified; D64.9 Anemia, unspecified; I69.391 Dysphagia following cerebral infarction; R13.10 Dysphagia, unspecified
CPT/HCPCS: 36415; 71045; 74018; 74176; 76770; 80048; 80053; 81001; 82140; 82550; 82570; 82962; 83930; 84156; 84300; 84550; 85007; 85025; 85027; 85610; 85730; 86140; 86403; 86850; 86900; 86901; 86920; 87040; 87075; 87076; 87086; 87116; 87186; 87324; 94760; 96360; 96361; A6260; J0330; J0696; J1650; J1815; J1956; J2020; J2185; J2270; J2370; J2543; J3010; J3480; J7030; J7040; J7070; P9016